=== PATIENT | female | born 1945 | race Caucasian/White ===

== ENCOUNTER → 2018-02-25 10:18 | Outpatient (CLI) | payer MEDICARE, OTHER, SELFPAY ==
--- NOTE | 2018-02-25 10:21 | BI_ITS ---
MAMMOGRAPHY - BILATERAL SCREENING REASON FOR EXAM: Female, 72 years old. Routine annual screening examination. PERTINENT HISTORY: NO FAM HX GAINED 10# NO SX TECHNIQUE: Digital bilateral breast juan david (3D mammographic acquisition) in the CC and MLO projections. 2-D mediolateral oblique (MLO) and craniocaudad (CC) views of both breasts were obtained. CAD: Full Field Digital Mammography with Computer Added Detection was performed. COMPARISON: Dec 17 2016 8:49am . FINDINGS: Breast Composition: There are scattered areas of fibroglandular density. There are no dominant masses or suspicious calcifications. No other significant abnormalities are identified. BI/SCREENING MAMM (CAD), BILAT IMPRESSION: Stable bilateral screening mammogram. Yearly follow-up mammogram recommended. (A) ASSESSMENT CATEGORY: BIRADS Category 2: Benign. A letter regarding these results will be sent to the patient by the facility within 30 days. Approximately 10% of breast cancers are not detected by mammography. A normal mammogram should not delay biopsy of a clinically suspicious abnormality. [id number] Electronically Signed: Eliezer Whiting MD at 16:48 EDT Tel , Service support ,
== END ==
PROVIDERS: Family Provider Family Medicine; PCP Family Medicine; Visit Provider Family Medicine
DX: Z12.31 Encounter for screening mammogram for malignant neoplasm of breast (principal)
CPT/HCPCS: 77063; 77067

== ENCOUNTER → 2018-06-30 07:07 | Outpatient (CLI) | payer MEDICARE, OTHER, SELFPAY ==
[2018-06-30 10:01] LABS: Color, Urine Yellow (Yellow); Glucose, Dipstick Normal (Normal); Ketone-Dipstick Negative (Negative); Leukocyte Esterase-Dipstick Negative /ul (Negative); Nitrite-Dipstick Negative (Negative); Occult Blood-Urine Negative /ul (Negative); Protein-Dipstick Negative (Negative); Urine Bilirubin Dipstick Negative (Negative); Urine Clarity Sl. Cloudy (Clear); Urine Urobilinogen Normal (Normal)
[2018-06-30 10:13] LABS: Anion Gap 9 (5-15); BUN 18 mg/dL (7-18); BUN/Creat Ratio 26.2 RATIO (10-20); Calcium,Total 9.4 mg/dL (8.5-10.1); Chloride 105 mmol/L (98-107); Creatinine, Serum 0.69 mg/dL (0.55-1.02); EST Glomerular Filtration Rate 89 mL/min (>60); Est Glom Filt Rate - Afr Amer 108 mL/min (>60); Glucose 89 mg/dL (74-106); Potassium 4.1 mmol/L (3.5-5.1); Sodium Level 141 mmol/L (136-145)
== END ==
PROVIDERS: Family Provider Family Medicine; PCP Family Medicine; Visit Provider Internal Medicine Endocrinology, Diabetes & Metabolism
DX: N28.89 Other specified disorders of kidney and ureter (principal); R30.0 Dysuria; R39.15 Urgency of urination
CPT/HCPCS: 36415; 80048; 81002

== ENCOUNTER → 2018-07-14 16:15 | Outpatient (CLI) | payer MEDICARE, OTHER, SELFPAY ==
--- NOTE | 2018-07-14 16:15 | LES_PTH ---
PATIENT: MAURI ARIAS LOC: [facility] U#:[id number] AGE/SX: 80/F ROOM: RE07/14/[address]: Dr. 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 Perineural invasion is not seen. HIPOLITO:jenny 07/17/18 COMMENT Case has been reviewed in consultation with Dr. Schneider who concurs with the above diagnosis. IDC:AM MICROSCOPIC DESCRIPTION Slides are reviewed. GROSS DESCRIPTION Received is one container labeled with the patient's name and not further designated. The specimen consists of a piece of santillan-white skin measuring 1.2 x 0.5 x 0.2 cm. The specimen is inked and submitted entirely in one cassette. A round nodule is noted measuring 0.5 cm in greatest dimension. The specimen is submitted entirely in one cassette. It will be sectioned at the time of embedding. / SJ:jenny 07/16/18 TC:0 CPT: 25649
== END ==
PROVIDERS: Family Provider Family Medicine; PCP Family Medicine; Visit Provider Family Medicine
DX: C44.622 Squamous cell carcinoma of skin of right upper limb, including shoulder (principal)
CPT/HCPCS: 88305

== ENCOUNTER → 2018-08-05 14:15 | Outpatient (CLI) | payer MEDICARE, OTHER, SELFPAY ==
--- NOTE | 2018-08-05 14:15 | LES_PTH ---
PATIENT: MAURI ARIAS LOC: [facility] U#:[id number] AGE/SX: 80/F ROOM: RE08/05/[address]: Dr. Jcarlos Zayas MD : 1945 BED: DIS: SPEC #: [id number] RECD: 08/05/18 20:08 STATUS: VANESSA ENEDELIA #: [id number] EFREN: 08/05/18 14:[address]: Jcarlos Zayas DEPT: SURGICAL PATHOLOGY RECD BY: Trey Degroot Tissues: Skin of arm Procedures: Surgery Specimen Level IV HEADER OPERATION: Excision right arm PRE-OP DIAGNOSIS: SCC TISSUE SUBMITTED: Excision right arm MICROSCOPIC DIAGNOSIS Right arm lesion, excision: Dermal fibrosis, consistent with scar. Negative for carcinoma. Mild actinic keratosis. See comment. HIPOLITO:jenny 08/07/18 COMMENT Please make reference to previous specimen ([id number]) right arm lesion, excision with diagnosis of superficially invasive well differentiated squamous cell carcinoma, keratoacanthomatous type. MICROSCOPIC DESCRIPTION Slides are reviewed. GROSS DESCRIPTION Received in fixative is one container labeled with the patient's name and designated right arm. The specimen consists of a sony-shaped piece of santillan-white skin measuring 2.5 x 1.5 cm and up to 0.2 cm in thickness. The specimen is inked, serially sectioned and submitted entirely in two cassettes. / SJ:jenny 08/06/18 TC:5 CPT: 92021
== END ==
PROVIDERS: Family Provider Family Medicine; PCP Family Medicine; Referring Provider Family Medicine; Visit Provider Family Medicine
DX: L98.9 Disorder of the skin and subcutaneous tissue, unspecified (principal)
CPT/HCPCS: 88305

== ENCOUNTER → 2019-02-03 14:47 | Outpatient (CLI) | payer MEDICARE, OTHER, SELFPAY ==
--- NOTE | 2019-02-03 14:52 | ECHOD_ITS ---
Reason For Study: Murmur Procedure This was a 2D Doppler, Color Flow transthoracic echocardiogram. Exam performed in department. Left Ventricle Normal size and thickness. The estimated ejection fraction is 65 %. Stage 1 diastolic dysfunction. No regional wall motion abnormalities noted. Right Ventricle Normal size and thickness. Normal systolic function. Atria Normal left atrium. Normal right atrium. Normal atrial septum. Mitral Valve The mitral valve is structurally normal. No prolapse or stenosis seen. Tricuspid Valve Normal tricuspid valve. Trivial tricuspid valve insufficiency. Unable to estimate RV systolic pressure/pulmonary artery pressure due to technically difficult study. Aortic Valve Trisinus/trileaflet aortic valve. Pulmonic Valve Normal pulmonic valve. Great Vessels Normal aortic root. Normal arch. Normal inferior vena cava. Inferior vena cava collapse with sniff. Pericardium/Pleural No pericardial effusion. MMode/2D Measurements & Calculations LVIDd: 4.6 cm IVSd: 1.1 cm Ao root diam: 3.2 cm LVIDs: 2.8 cm LVPWd: 0.96 cm LA dimension: 3.8 cm RVDd: 3.2 cm FS: 39.5 % LAV(MOD-bp): 40.8 ml LA A4 area: 15.6 cm2 RA A4 area: 15.1 cm2 LAV(MOD-bp) Indexed: 20.2 ml/m2 LAV(MOD-sp2): 40.1 ml LAV(MOD-sp4): 38.0 ml Time Measurements MV dec time: 0.22 sec Doppler Measurements & Calculations MV E max fred: 71.2 cm/sec Lat Peak E' Fred: 7.1 cm/sec Med Peak E' Fred: 8.0 cm/sec MV A max fred: 98.7 cm/sec E/E' lat: 10.1 E/E' med: 8.9 MV E/A: 0.72 MV V2 max: 110.7 cm/sec MV P1/2t max fred: 96.3 cm/sec Ao V2 max: 156.0 cm/sec MV max P.9 mmHg MV P1/2t: 85.1 msec Ao max P.7 mmHg MV V2 mean: 64.1 cm/sec MV dec slope: 331.5 cm/sec2 Ao V2 mean: 109.3 cm/sec MV mean P.9 mmHg MVA(P1/2t): 2.6 cm2 Ao mean P.4 mmHg MV V2 VTI: 26.3 cm Ao V2 VTI: 36.4 cm LV V1 max: 137.8 cm/sec PA V2 max: 116.5 cm/sec LV V1 max P.6 mmHg LV V1 mean P.4 mmHg LV V1 mean: 84.1 cm/sec LV V1 VTI: 30.1 cm Interpretation Summary The estimated ejection fraction is 65 %. Stage 1 diastolic dysfunction. Trivial tricuspid valve insufficiency. Unable to estimate RV systolic pressure/pulmonary artery pressure due to technically difficult study. Compared to echo report dated 09/09/2005, no appreciable changes noted. Ordering Physician: Mauricio Leonard Referring Physician: Mauricio Leonard Performed By: Arsenio Bustillo RCS
== END ==
PROVIDERS: Family Provider Family Medicine; PCP Family Medicine; Referring Provider Family Medicine; Visit Provider Family Medicine
DX: R01.1 Cardiac murmur, unspecified (principal)
CPT/HCPCS: 93306

== ENCOUNTER → 2019-04-07 09:24 | Outpatient (CLI) | payer MEDICARE, OTHER, SELFPAY ==
--- NOTE | 2019-04-07 09:28 | BI_ITS ---
MAMMOGRAPHY - BILATERAL SCREENING REASON FOR EXAM: Female, 73 years old. Routine annual screening examination. PERTINENT HISTORY: Non-contributory. TECHNIQUE: Digital bilateral breast mark (3D mammographic acquisition) in the CC and MLO projections. 2-D mediolateral oblique (MLO) and craniocaudad (CC) views of both breasts were obtained. CAD: Full Field Digital Mammography with Computer Added Detection was performed. COMPARISON: Comparison is made with prior study dated February 25, 2018 and December 17, 2016. FINDINGS: Breast Composition: There are scattered areas of fibroglandular density. There are no dominant masses or suspicious calcifications. Stable small left axillary lymph nodes. No other significant abnormalities are identified. There has been no significant change since the prior study. BI/SCREEN MAMM (CAD) W/MARK BILAT IMPRESSION: Stable bilateral screening mammogram. Yearly follow-up mammogram recommended. (A) ASSESSMENT CATEGORY: BIRADS Category 2: Benign. A letter regarding these results will be sent to the patient by the facility within 30 days. Approximately 10% of breast cancers are not detected by mammography. A normal mammogram should not delay biopsy of a clinically suspicious abnormality. [id number] Electronically Signed: Easton Mccrary, at 11:04 EDT , Service support ,
== END ==
PROVIDERS: Family Provider Family Medicine; PCP Family Medicine; Referring Provider Family Medicine; Visit Provider Family Medicine
DX: Z12.31 Encounter for screening mammogram for malignant neoplasm of breast (principal); Z78.0 Asymptomatic menopausal state
CPT/HCPCS: 77063; 77067

== ENCOUNTER → 2019-04-14 07:28 | Outpatient (CLI) | payer MEDICARE, OTHER, SELFPAY ==
--- NOTE | 2019-04-14 07:55 | BD_ITS ---
STUDY: DUAL ENERGY X-RAY ABSORPTIOMETRY / DXA REASON FOR EXAM: Female, 73 years old. The patient is postmenopausal. No loss of height. TECHNIQUE: Bone Mineral Density (BMD) measurements of lumbar spine and bilateral hips were obtained. COMPARISON: Comparison is made with prior study dated December 17, 2016. FINDINGS: Lumbar Spine (L1-L4): g/cm2 (0.906) / T-score (-2.2) / Z-score (-0.5) Findings are suggestive of osteopenia with a moderate fracture risk. Left Femur Total: g/cm2 (0.787) / T-score (-1.8) / Z-score (-0.2) Left Femoral Neck: g/cm2 (0.791) / T-score (-1.8) / Z-score (0.0) Right Femur Total: g/cm2 (0.757) / T-score (-2.0) / Z-score (-0.4) Right Femoral Neck: g/cm2 (0.799) / T-score (-1.7) / Z-score (0.0) The T-Scores on the most recent prior examination were: Lumbar Spine (L1-L4): There has been worsening of bone density since the previous examination. Left Femur Total: which represents an improvement of 0.4%. Right Femur Total: which represents a worsening of 0.9%. BD/Dexa Bone Density Study IMPRESSION: The patient is considered osteopenic as outlined below according to World Alli Organization (WHO) criteria with a high fracture risk. There has been worsening of bone density since the previous examination. Reference Information: The T-score is the number of standard deviations above or below the standard which is normal for young adults at their peak bone mineral density. The World Health Organization (WHO) interprets the T-scores as follows: Above -1 Normal bone density Between -1 and -2.5 Osteopenia Equal to / or below -2.5 Osteoporosis As a practical clinical guideline, osteopenia may be graded as follows: Mild -1 through -1.5 Moderate -1.6 through -2.0 Severe -2.1 through -2.4 The Z-score is the number of standard deviations above or below age-matched controls. A Z-score of less than -1.5 would be considered abnormal. References: 1. NIH Osteoporosis and Related Bone Diseases http://www.osteo.org 2. International Society for Clinical Densitometry http://www.iscd.org 3. National Osteoporosis Foundation http://www.nof.org Electronically Signed: Easton Mccrary, at 15:32 EDT , Service support ,
== END ==
PROVIDERS: Family Provider Family Medicine; PCP Family Medicine; Referring Provider Family Medicine; Visit Provider Family Medicine
DX: M85.80 Other specified disorders of bone density and structure, unspecified site (principal); Z78.0 Asymptomatic menopausal state
CPT/HCPCS: 77080

== ENCOUNTER → 2019-05-20 06:59 | Outpatient (CLI) | payer MEDICARE, OTHER, SELFPAY ==
[2019-05-20 10:34] LABS: Vitamin D,25 Hydroxy 46.9 ng/mL (29.95-100.01)
[2019-05-20 10:39] LABS: Anion Gap 8 (5-15); BUN 15 mg/dL (7-18); BUN/Creat Ratio 25.8 RATIO (10-20); Calcium,Total 9.8 mg/dL (8.5-10.1); Chloride 106 mmol/L (98-107); Cholesterol 211 mg/dL (200); Creatinine, Serum 0.58 mg/dL (0.55-1.02); EST Glomerular Filtration Rate 108 mL/min (>60); Est Glom Filt Rate - Afr Amer 131 mL/min (>60); Glucose 100 mg/dL (74-106); High Density Lipoprotein 57 mg/dL; Potassium 4.3 mmol/L (3.5-5.1); Sodium Level 141 mmol/L (136-145); Thyroid Stim Hormone (TSH) 1.62 uIU/mL (0.358-3.74); Triglycerides 73 mg/dL; Very Low Density Lipoprotein 15 mg/dL (5-40)
== END ==
PROVIDERS: Family Provider Family Medicine; PCP Family Medicine; Referring Provider Family Medicine; Visit Provider Family Medicine
DX: D44.10 Neoplasm of uncertain behavior of unspecified adrenal gland (principal); E78.5 Hyperlipidemia, unspecified; M85.80 Other specified disorders of bone density and structure, unspecified site
CPT/HCPCS: 36415; 80048; 80061; 82306; 82533; 84443

== ENCOUNTER → 2019-05-27 07:00 | Outpatient (CLI) | payer MEDICARE, OTHER, SELFPAY | PROVIDERS: Family Provider Family Medicine; PCP Family Medicine; Referring Provider Internal Medicine Endocrinology, Diabetes & Metabolism; Visit Provider Internal Medicine Endocrinology, Diabetes & Metabolism | DX: D44.10 Neoplasm of uncertain behavior of unspecified adrenal gland (principal) ==

== ENCOUNTER → 2019-06-16 07:33 | Outpatient (CLI) | payer MEDICARE, OTHER, SELFPAY | PROVIDERS: Family Provider Family Medicine; PCP Family Medicine; Referring Provider Internal Medicine Endocrinology, Diabetes & Metabolism; Visit Provider Internal Medicine Endocrinology, Diabetes & Metabolism | DX: E89.0 Postprocedural hypothyroidism (principal) ==

== ENCOUNTER 2019-07-02 12:13 | Emergency (ER) | payer MEDICARE, OTHER, SELFPAY ==
[2019-07-02 12:14] VITALS: BP 146/77; PULSE 71; RESP 16; TEMP 36.7; O2SAT 99; BMI 29.7
[2019-07-02] MEDS: 0.9% Normal Saline 1,000 ML 125 ML IV (13:00)
[2019-07-02 13:07] LABS: Absolute Lymphocyte Count 1.72 X10^3/uL (0.83-4.51); Absolute Neutrophil Count 3.2 X10^3/uL (2.0-7.7); Basophil# 0.05 X10^3/uL; Basophil% 0.9 % (0-1); Eosinophil# 0.14 X10^3/uL; Eosinophils% 2.4 % (0-5); Hematocrit 41.7 % (37-47); Lymphocyte # 1.72 X10^3/ul (4.0); Lymphocyte % 29.6 % (19-41); Mean Corp Hgb Conc 33.6 g/dL (32-36); Mean Corpuscular Hgb 30.8 pg (27.0-32.0); Mean Corpuscular Volume 91.6 fL (81-99); Mean Platelet Vol. 10.9 fl (6.2-12.0); Monocyte# 0.73 X10^3/uL; Monocyte% 12.6 % (0-10); NRBC Flagged by Analyzer 0 % (0-5); Neutrophil # 3.15 X10^3/uL (2.7-7.7); Neutrophil % 54.2 % (47-70); Platelet Count 294 K/mm3 (150-450); RBC Distribution Width CV 12.8 % (11.6-14.6); RBC Distribution Width SD 43.4 fl (35.1-43.9); Red Blood Count 4.55 M/mm3 (4.2-5.4); White Blood Count 5.8 K/mm3 (4.4-11.0)
[2019-07-02 13:29] LABS: Anion Gap 4 (5-15); BUN 14 mg/dL (7-18); BUN/Creat Ratio 23.7 RATIO (10-20); Calcium,Total 9.5 mg/dL (8.5-10.1); Chloride 108 mmol/L (98-107); Creatinine, Serum 0.59 mg/dL (0.55-1.02); EST Glomerular Filtration Rate 106 mL/min (>60); Est Glom Filt Rate - Afr Amer 129 mL/min (>60); Glucose 94 mg/dL (74-106); Potassium 3.6 mmol/L (3.5-5.1); Sodium Level 141 mmol/L (136-145)
[2019-07-02 14:21] VITALS: BP 143/63; BP 145/68; BP 152/76; PULSE 58; PULSE 60; PULSE 62
--- NOTE | 2019-07-02 14:36 | ED.VISSUMM ---
- ER Visit Summary Date of Service: 07/02/19 Chief Complaint: [Rectal bleeding] History of Present Illness: The patient is a 74 F [presents to the emergency department with rectal bleeding that started this morning around 6:30 AM. Patient complains of some mild nausea. She denies any abdominal pain. Patient is not on any blood thinners. Patient thinks her last colonoscopy was 5 to 7 years ago. Patient denies feeling dizzy or lightheaded. Patient was seen by Dr. Vora in the office today for this and was referred to the emergency department. Patient does not have history of diverticulitis or inflammatory bowel disease. She has not had any fevers or recent illness.] Physical Examination: [HEENT-PERRLA, EOMI. Cranial nerves II through XII grossly intact. TMs clear. Mucous membranes moist. No adenopathy. Cardiovascular-regular rate and rhythm without murmur or ectopy Lungs-clear to auscultation, chest wall stable without crepitus or subcu emphysema Abdomen-normoactive bowel sounds, soft, nontender, no rebound or rigidity, no peritoneal signs. Rectal exam-no hemorrhoids or fissures noted. On digital rectal exam patient had bright red and maroon-colored stool. Extremities-intact ?4, normal range of motion, normal pulses, atraumatic] Test Results: [CBC with differential obtained showed a white count of 5.8, hemoglobin 14, hematocrit 42, placed 294. Chemistries unremarkable. With static vital signs were negative.] Emergency Department Course and Treatment: [Patient had a type and screen ordered. Patient was treated with normal saline. Case was discussed with general surgeon on-call Dr. Ashlyn Santiago who will follow patient up in the office for possible outpatient colonoscopy. At this point I do not feel patient needs to be admitted to the hospital as she is had no more bleeding since 6:30 AM and she is not anticoagulated.] Treatment Plan: [Discharged home stable condition. Patient advised to return if worsening pain, fever, persistent heavy bleeding, lightheaded or dizzy, short of breath, or conditions worsen anyway.] Disposition: [Discharged home stable condition] Impression: Rectal bleeding-stable [] This note was generated with [employer] dictation software. It may contain incorrect words, spelling, and punctuation that were not noted in review of the chart prior to signing ED Disposition - Plan for ED Patient: Referrals: Demetrius Zayas MD [Primary Care Provider] -
--- NOTE | 2019-07-02 14:38 | DCINST.ED_ITS ---
ED Disposition - Plan for ED Patient: Instructions: RECTAL BLEED, Stable Referrals: Demetrius Zayas MD [Primary Care Provider] - Ashlyn Santiago MD [STAFF PHYSICIAN] - 3-5 Days
--- NOTE | 2019-07-02 14:38 | ED.DEP ---
ED Disposition - Plan for ED Patient: Instructions: RECTAL BLEED, Stable Referrals: Demetrius aZyas MD [Primary Care Provider] - Ashlyn Santiago MD [STAFF PHYSICIAN] - 3-5 Days
[2019-07-02 15:13] VITALS: BP 138/72; PULSE 69; RESP 15; O2SAT 98
== END 2019-07-02 15:15 | disposition home or self-care (01) ==
PROVIDERS: Emergency Provider Emergency Medicine; Family Provider Family Medicine; PCP Family Medicine
DX: K62.5 Hemorrhage of anus and rectum (principal)
CPT/HCPCS: 80048; 85025; 86850; 86900; 86901; 96360; 96361; 99284; J7030; A4216

== ENCOUNTER → 2019-07-09 07:05 | Outpatient (CLI) | payer MEDICARE, OTHER, SELFPAY ==
[2019-07-02 12:14] VITALS: BMI 29.7
== END ==
PROVIDERS: Family Provider Family Medicine; PCP Family Medicine; Referring Provider Internal Medicine Endocrinology, Diabetes & Metabolism; Visit Provider Internal Medicine Endocrinology, Diabetes & Metabolism
DX: D44.10 Neoplasm of uncertain behavior of unspecified adrenal gland (principal)

== ENCOUNTER → 2019-12-13 11:27 | Outpatient (CLI) | payer MEDICARE, OTHER, SELFPAY ==
--- NOTE | 2019-12-13 11:33 | RAD_ITS ---
STUDY: X-RAY - RIGHT SHOULDER REASON FOR EXAM: Female, 74 years old. right shoulder pain, no injury TECHNIQUE: 4 view(s) of the shoulder. COMPARISON: None. FINDINGS: Normal glenohumeral articulation. There is degenerative arthrosis of the acromioclavicular joint without inferior osseous spur formation. Normal acromion. Normal humeral head and visualized proximal humerus. The soft tissue structures are unremarkable. Normal visualized pulmonary apex. RAD/Shoulder min 2 Views IMPRESSION: Mild degenerative changes. No demonstrated fracture, dislocation, or destructive osseous lesion. Electronically Signed: Boston Longoria MD at 6:57 EST , Service support ,
== END ==
PROVIDERS: PCP Family Medicine; Referring Provider Family Medicine; Visit Provider Family Medicine
DX: M25.511 Pain in right shoulder (principal)
CPT/HCPCS: 73030

== ENCOUNTER → 2020-05-22 11:07 | Outpatient (CLI) | payer MEDICARE, OTHER, SELFPAY ==
[2020-05-21 09:05] VITALS: BMI 29.7
== END ==
PROVIDERS: PCP Family Medicine; Referring Provider Physician Assistant Medical; Visit Provider Physician Assistant Medical
DX: Z20.828 Contact with and (suspected) exposure to other viral communicable diseases (principal)
CPT/HCPCS: 87635; 94799; U0003

== ENCOUNTER → 2020-08-23 14:27 | Outpatient (CLI) | payer MEDICARE, OTHER, SELFPAY ==
[2020-05-21 09:05] VITALS: BMI 29.7
--- NOTE | 2020-08-23 14:35 | RAD_ITS ---
HISTORY: cervical radiculopathy ADDITIONAL HISTORY: None provided. EXAMINATION/TECHNIQUE: XR Spine Cervical 4 or 5 Views Number of images including paperwork: 5 COMPARISON: None FINDINGS: VERTEBRAE: No acute fracture. VERTEBRAL ALIGNMENT: No traumatic subluxation. DISKS AND JOINTS: Mild to moderate discogenic degenerative changes at C5-6. Facet arthropathy. Mild to moderate bilateral foraminal stenosis at C5-6, foraminal evaluation on the left limited due to obliquity.. SOFT TISSUES: Unremarkable paraspinous soft tissues. RAD/Cerv Spine 4 or 5 Views IMPRESSION: No acute findings. Cervical spondylosis. at 0815 Reported and signed by: Sujata Melendez MD Electronically Signed: Sujata Melendez MD at 8:15 EDT Tel , Service support ,
== END ==
PROVIDERS: PCP Family Medicine; Referring Provider Family Medicine; Visit Provider Family Medicine
DX: M54.12 Radiculopathy, cervical region (principal)
CPT/HCPCS: 72050

== ENCOUNTER → 2020-09-12 07:04 | Outpatient (CLI) | payer MEDICARE, OTHER, SELFPAY ==
[2020-05-21 09:05] VITALS: BMI 29.7
[2020-09-12 10:06] LABS: Vitamin D,25 Hydroxy 38.3 ng/mL
[2020-09-12 10:07] LABS: Anion Gap 4 (5-15); BUN 13 mg/dL (7-18); BUN/Creat Ratio 21.4 RATIO (10-20); Calcium,Total 9.5 mg/dL (8.5-10.1); Chloride 105 mmol/L (98-107); Cholesterol 250 mg/dL (200); Creatinine, Serum 0.61 mg/dL (0.55-1.02); EST Glomerular Filtration Rate 103 mL/min (>60); Est Glom Filt Rate - Afr Amer 124 mL/min (>60); Glucose 87 mg/dL (74-106); High Density Lipoprotein 70 mg/dL; Potassium 3.9 mmol/L (3.5-5.1); Sodium Level 138 mmol/L (136-145); Triglycerides 81 mg/dL; Very Low Density Lipoprotein 16 mg/dL (5-40)
== END ==
PROVIDERS: PCP Family Medicine; Referring Provider Family Medicine; Visit Provider Family Medicine
DX: E78.5 Hyperlipidemia, unspecified (principal); M85.80 Other specified disorders of bone density and structure, unspecified site
CPT/HCPCS: 36415; 80048; 80061; 82306

== ENCOUNTER 2020-09-27 13:30 | Outpatient (RCR) | payer MEDICARE, OTHER, SELFPAY ==
[2020-05-21 09:05] VITALS: BMI 29.7
--- NOTE | 2020-08-30 17:24 | HP.PTEVAL_ITS ---
Patient's Visit Information MAURI ARIAS is a 75 year old F referred to Physical Therapy by Dr. Demetrius Zayas MD with a diagnosis of Cervical DDD. Date of Evaluation: 08/30/20 Physical Therapist: Ann Villalobos DPT - Visit Plan Frequency: 2x /Week Duration: 4 Weeks Plan: Focus on scapular s/s- ultrasound as modality of choice - Subjective Patient reports that she has pain in the right shoulder-she had an x-ray of the neck. The pain started in Nov- insidous onset- was told it was OA in the shoulder- but when she went back it was radiating to the elbow and they told her it was coming from her neck. Pain is located in the shoulder and radiates to the elbow. No neck pain. Describes the pain as nagging. Eases: tiger balm Agg: writting, lifting Worst: 8/10 Best: 0/10. Sleep: disturbed-side sleeper- wakes her up- takes Aleve before she goes to bed. Notices N/T in her hand but it comes and goes. Decreased strength but no change in finger dexterity. No GUAJARDO, blurred vision or dizziness. No symptoms on the left side. X-rays of the cervical spine but no MRI. 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 Single day of a lot of [employer]- works 40+ hours a week. Sits a lot. PMHx: none Meds: none. Was given a medication but it makes her mouth dry. Right hand dominate. - Objective Posture: FH, RS- can correct but does not maintain without verbal prompting. Gait: no deviation noted- good arm swing and trunk rotation. Palpatoin: not tender to touch but does have trigger points throughout upper trap, levator insertion, and medial border of the scapula. ROM: WFL in all planes but reports pain with IR of the shoulder behind the back and stiffness with end range flexion and abduction. Strength: Cervical Isometric: 4+/5, Scap: fair minus, Shoulder: 4/5 throughout, Elbow: 4+/5 Wrist: 5/5 Belt Operator: equal. Special Test: impingment: positive, Empty can: negative, Spurlings: negative Distraction: negative - Goals Goal 1:: Patient will be I with HEP and progression Goal Time Frame: 4-6 Weeks Goal 2:: Patient will maintain proper posture t/o tx session to demo increased scap s/s Goal Time Frame: 4-6 Weeks Goal 3:: Patient will report sleeping through the night for 1 week Goal Time Frame: 4-6 Weeks - Rehabilitation Potential Physical Therapy Diagnosis: Patient presents with hypomobility-she has decreased painfree ROM, strength and muscular endurance leading to poor posture and increased pain with ADL's. Rehabilitation Potential: Good - Anticipated Interventions Patient/Client Instruction: Educate patient on: Benefits of Fitness Program Therapeutic Exercise to Include: Strength training, Endurance training, Body mechanics, Postural training, Neuromotor development, Passive ROM, Active ROM, Dynamic Lumbar Stabilization, Scapular Strength/Stabilization For the Purpose of:: To improve muscle performance and motor function TENS: Yes Cryotherapy (ice pack, ice massage): Yes Thermo therapy (hot pack): Yes Ultrasound (thermal/non thermal): Yes Thank you for the opportunity to evaluate your patient. For Medicare and Medicare HMO plans, please review the plan of care and approve it. It will need to be FAXED BACK to us at [phone] for Medicare purposes. For Medicare only, by signing this I certify the plan of care. Please let me know if there are questions or concerns regarding this plan of care. Physician Signature: Date:
--- NOTE | 2020-09-27 14:06 | HP.PTDCSUM ---
It has been my pleasure to treat MAURI ARIAS referred by Dr. Demetrius Zayas MD, with the diagnosis of Cervical DDD for a total of 8 visit(s). Discharge Date: Please see the following information for a summary of their discharge status. Subjective: Patient reports that she doesn't feel like she is making huge gains in PT and was awake last night with pain down her arm. right arm/shoduler Pain Intensity (Out of 10): 2 % Improvement: 50 Objective/Function: Posture: FH, RS- can correct and maintain without verbal prompting. Gait: no deviation noted- good arm swing and trunk rotation. Palpatoin: not tender. ROM: WFL in all planes Strength: Cervical Isometric: 4+/5, Scap: fair, Shoulder: 4+/5 throughout, Elbow: 5/5 Wrist: 5/5 Visually Impaired Teacher: equal. Special Test: impingment: positive, Empty can: negative, Spurlings: negative Distraction: negative Goal 1:: Patient will be I with HEP and progression Goal Progress: Progressing Goal 2:: Patient will maintain proper posture t/o tx session to demo increased scap s/s Goal Progress: Progressing Goal 3:: Patient will report sleeping through the night for 1 week Goal Progress: Not Progressing Plan: Return to MD for further evaluation If there are questions or concerns regarding this patient's physical therapy, please feel free to call me at [phone]. Thank you for the referral of this patient. Sincerely, Ann Villalobos DPT
== END 2020-09-27 19:00 | disposition home or self-care (01) ==
LOC: PT 13:30
PROVIDERS: PCP Family Medicine; Referring Provider Family Medicine; Visit Provider Family Medicine
DX: M50.30 Other cervical disc degeneration, unspecified cervical region (principal)
CPT/HCPCS: 97035; 97110; 97140; 97162; 97164

== ENCOUNTER → 2020-10-18 13:12 | Outpatient (CLI) | payer MEDICARE, OTHER, SELFPAY ==
[2020-05-21 09:05] VITALS: BMI 29.7
--- NOTE | 2020-10-18 13:14 | BI_ITS ---
MAMMOGRAPHY - BILATERAL SCREENING REASON FOR EXAM: Female, 75 years old. Routine annual screening examination. PERTINENT HISTORY: Non-contributory. TECHNIQUE: Digital bilateral breast mark (3D mammographic acquisition) in the CC and MLO projections. 2-D mediolateral oblique (MLO) and craniocaudad (CC) views of both breasts were obtained. CAD: Full Field Digital Mammography with Computer Added Detection was performed. COMPARISON: Comparison is made with prior study dated 04/07/2019 and 02/25/2018. FINDINGS: Breast Composition: There are scattered areas of fibroglandular density. There are no dominant masses or suspicious calcifications. No other significant abnormalities are identified. There has been no significant change since the prior study. BI/SCREEN MAMM (CAD) W/MARK BILAT IMPRESSION: Stable bilateral screening mammogram. Yearly follow-up mammogram recommended. (A) ASSESSMENT CATEGORY: BIRADS Category 1: Negative. A letter regarding these results will be sent to the patient by the facility within 30 days. Approximately 10% of breast cancers are not detected by mammography. A normal mammogram should not delay biopsy of a clinically suspicious abnormality. [id number] Electronically Signed: Easton Mccrary, at 14:34 EST , Service support ,
== END ==
PROVIDERS: PCP Family Medicine; Referring Provider Family Medicine; Visit Provider Family Medicine
DX: Z12.31 Encounter for screening mammogram for malignant neoplasm of breast (principal)
CPT/HCPCS: 77063; 77067

== ENCOUNTER → 2020-10-19 12:26 | Outpatient (CLI) | payer MEDICARE, OTHER, SELFPAY ==
[2020-05-21 09:05] VITALS: BMI 29.7
--- NOTE | 2020-10-19 13:00 | MRI_ITS ---
STUDY: MRI CERVICAL SPINE WITHOUT CONTRAST REASON FOR EXAM: Female, 75 years old. DDD, R ARM PAIN TECHNIQUE: Standardized fat and water weighted pulse sequences were obtained in the sagittal and axial planes. COMPARISON: None FINDINGS: Normal foramen magnum and brainstem-cervical cord junction. Normal craniovertebral junction. Normal anterior atlantoaxial articulation. Normal odontoid process. Normal cervical lordosis. Normal vertebral bodies and posterior osseous elements. C2-3: Normal endplates. Normal disc height, signal and morphology. Normal central canal and intervertebral neural foramina. C3-4: Normal endplates. Normal disc height, signal and morphology. Normal central canal and intervertebral neural foramina. C4-5: Normal endplates. Normal disc height, signal and morphology. Normal central canal and intervertebral neural foramina. C5-6: Narrowed disc space and minor endplate spurring. Minor bulging disc osteophyte complex. Normal central canal.. Severe right neuroforaminal stenosis and moderate narrowing on the left secondary to disc and bony hypertrophy C6-7: Normal endplates. Normal disc height, signal and morphology. Normal central canal and intervertebral neural foramina. C7-T1: Normal endplates. Normal disc height, signal and morphology. Normal central canal and intervertebral neural foramina. Normal cervical cord. Normal visualized soft tissue structures. MRI/Spine Cervical (Routine) IMPRESSION: No evidence for acute fracture or other significant bony pathology. Mild spondylosis most severe at C5-6 where there is severe right neuroforaminal stenosis and moderate narrowing on the left secondary to minor bulging disc and bony hypertrophy Electronically Signed: Viraj Marti MD at 17:40 EST , Service support ,
== END ==
PROVIDERS: PCP Family Medicine; Referring Provider Family Medicine; Visit Provider Family Medicine
DX: M50.30 Other cervical disc degeneration, unspecified cervical region (principal)
CPT/HCPCS: 72141

== ENCOUNTER → 2021-05-14 07:55 | Outpatient (CLI) | payer MEDICARE, OTHER, SELFPAY ==
[2020-05-21 09:05] VITALS: BMI 29.7
== END ==
PROVIDERS: PCP Family Medicine; Referring Provider Internal Medicine Endocrinology, Diabetes & Metabolism; Visit Provider Internal Medicine Endocrinology, Diabetes & Metabolism
DX: D44.10 Neoplasm of uncertain behavior of unspecified adrenal gland (principal)
CPT/HCPCS: 36415; 82533

== ENCOUNTER → 2021-05-28 07:46 | Outpatient (CLI) | payer MEDICARE, OTHER, SELFPAY ==
[2020-05-21 09:05] VITALS: BMI 29.7
== END ==
PROVIDERS: PCP Family Medicine; Referring Provider Internal Medicine Endocrinology, Diabetes & Metabolism; Visit Provider Internal Medicine Endocrinology, Diabetes & Metabolism
DX: D44.10 Neoplasm of uncertain behavior of unspecified adrenal gland (principal)
CPT/HCPCS: 36415; 82533

== ENCOUNTER → 2021-10-17 07:06 | Outpatient (CLI) | payer MEDICARE, OTHER, SELFPAY ==
[2021-10-17 10:23] LABS: Vitamin D,25 Hydroxy 35.4 ng/mL
[2021-10-17 10:37] LABS: AST(SGOT) 14 U/L (15-37); Alanine Aminotransfer ALT/SGPT 26 U/L (13-56); Albumin, Serum 3.4 g/dL (3.2-5.0); Alkaline Phosphatase 67 U/L (45-117); Anion Gap 8 (5-15); BUN 15 mg/dL (7-18); BUN/Creat Ratio 26.9 RATIO (10-20); Bilirubin, Direct 0.09 mg/dL (0.00-0.30); Calcium,Total 8.8 mg/dL (8.5-10.1); Chloride 105 mmol/L (98-107); Cholesterol 205 mg/dL (200); Creatinine, Serum 0.56 mg/dL (0.55-1.02); EST Glomerular Filtration Rate 113 mL/min (>60); Est Glom Filt Rate - Afr Amer 137 mL/min (>60); Globulin 3.6 g/dL (2.2-4.2); Glucose 91 mg/dL (74-106); High Density Lipoprotein 61 mg/dL; Potassium 3.9 mmol/L (3.5-5.1); Sodium Level 140 mmol/L (136-145); Thyroid Stim Hormone (TSH) 2.32 uIU/mL (0.358-3.74); Triglycerides 62 mg/dL; Very Low Density Lipoprotein 12 mg/dL (5-40)
== END ==
PROVIDERS: PCP Family Medicine; Referring Provider Family Medicine; Visit Provider Family Medicine
DX: M85.80 Other specified disorders of bone density and structure, unspecified site (principal); E78.5 Hyperlipidemia, unspecified
CPT/HCPCS: 36415; 80048; 80061; 80076; 82306; 84443

== ENCOUNTER 2021-10-25 11:23 | Outpatient (CLI) | payer MEDICARE, OTHER, SELFPAY ==
[2021-10-25 11:36] VITALS: BP 150/74; PULSE 70; RESP 16; TEMP 37; O2SAT 97; BMI 27.4
[2021-10-25] MEDS: 0.9% Saline Lock 10 ML Syringe IV (11:39)
[2021-10-25 12:19] VITALS: BP 155/66; PULSE 62; RESP 16; TEMP 36.8; O2SAT 100
[2021-10-25 13:04] VITALS: BP 152/71; PULSE 65; RESP 16; TEMP 36.8; O2SAT 100
== END 2021-10-25 13:17 | disposition home or self-care (01) ==
LOC: MS3OUT 11:23 → MS3 11:24
PROVIDERS: PCP Family Medicine; Referring Provider Nurse Practitioner Adult Health; Visit Provider Nurse Practitioner Adult Health
DX: Z23 Encounter for immunization (principal); U07.1 COVID-19
CPT/HCPCS: J7050; M0245; Q0245; A4216

== ENCOUNTER 2021-10-30 09:45 | Outpatient (CLI) | payer MEDICARE, OTHER, SELFPAY ==
--- NOTE | 2021-10-30 09:50 | BI_ITS ---
MAMMOGRAPHY - BILATERAL SCREENING REASON FOR EXAM: Female, 76 years old. Routine annual screening examination. PERTINENT HISTORY: Non-contributory. TECHNIQUE: Digital bilateral breast mark (3D mammographic acquisition) in the CC and MLO projections. 2-D mediolateral oblique (MLO) and craniocaudad (CC) views of both breasts were obtained. CAD: Full Field Digital Mammography with Computer Added Detection was performed. COMPARISON: Comparison is made with prior study dated 10/18/2020 and 04/07/2019. FINDINGS: Breast Composition: There are scattered areas of fibroglandular density. There are no dominant masses or suspicious calcifications. No other significant abnormalities are identified. There has been no significant change since the prior study. BI/SCRN MAMM (CAD)W/MARK BILAT IMPRESSION: Stable bilateral screening mammogram. Yearly follow-up mammogram recommended. (A) ASSESSMENT CATEGORY: BIRADS Category 1: Negative. A letter regarding these results will be sent to the patient by the facility within 30 days. Approximately 10% of breast cancers are not detected by mammography. A normal mammogram should not delay biopsy of a clinically suspicious abnormality. [id number] Electronically Signed: Easton Mccrary MD at 11:47 EST , Service support ,
--- NOTE | 2021-10-30 09:55 | BD_ITS ---
STUDY: DUAL ENERGY X-RAY ABSORPTIOMETRY / DXA REASON FOR EXAM: Female, 76 years old. Z780. The patient is postmenopausal. TECHNIQUE: Bone Mineral Density (BMD) measurements of lumbar spine and bilateral hips were obtained. COMPARISON: Comparison is made with prior examination dated 04/14/2019. FINDINGS: Lumbar Spine (L1-L4): g/cm2 (0.928) / T-score (-1.1) / Z-score (1.3) Findings are suggestive of osteopenia with a low fracture risk. Left Femur Total: g/cm2 (0.658) / T-score (-2.3) / Z-score (-0.6) Left Femoral Neck: g/cm2 (0.608) / T-score (-2.2) / Z-score (-0.1) Right Femur Total: g/cm2 (0.650) / T-score (-2.4) / Z-score (-0.7) Right Femoral Neck: g/cm2 (0.592) / T-score (-2.3) / Z-score (-0.3) The T-Scores on the most recent prior examination were: Lumbar Spine (L1-L4): There has been worsening of bone density since the previous examination. Left Femur Total: which represents a worsening of 9.5%. Right Femur Total: which represents a worsening of 6.9%. BD/Dexa Bone Density Study IMPRESSION: The patient is considered osteopenic as outlined below according to World Alli Organization (WHO) criteria with a high fracture risk. There has been worsening of bone density since the previous examination. Reference Information: The T-score is the number of standard deviations above or below the standard which is normal for young adults at their peak bone mineral density. The World Health Organization (WHO) interprets the T-scores as follows: Above -1 Normal bone density Between -1 and -2.5 Osteopenia Equal to / or below -2.5 Osteoporosis As a practical clinical guideline, osteopenia may be graded as follows: Mild -1 through -1.5 Moderate -1.6 through -2.0 Severe -2.1 through -2.4 The Z-score is the number of standard deviations above or below age-matched controls. A Z-score of less than -1.5 would be considered abnormal. References: 1. NIH Osteoporosis and Related Bone Diseases www osteo.org 2. International Society for Clinical Densitometry www iscd.org 3. National Osteoporosis Foundation www nof.org Electronically Signed: Easton Mccrary MD at 13:19 EST , Service support ,
== END 2021-10-30 23:59 | disposition short-term general hospital (02) ==
LOC: OPBD 09:47
PROVIDERS: PCP Family Medicine; Referring Provider Family Medicine; Visit Provider Family Medicine
DX: Z78.0 Asymptomatic menopausal state (principal); Z12.31 Encounter for screening mammogram for malignant neoplasm of breast
CPT/HCPCS: 77063; 77067; 77080

== ENCOUNTER → 2022-10-22 | Outpatient (CLI) | payer MEDICARE, OTHER, SELFPAY ==
[2022-10-22 10:33] LABS: Vitamin D,25 Hydroxy 38.3 ng/mL
[2022-10-22 10:43] LABS: AST(SGOT) 14 U/L (15-37); Alanine Aminotransfer ALT/SGPT 22 U/L (13-56); Albumin, Serum 3.5 g/dL (3.2-5.0); Alkaline Phosphatase 61 U/L (45-117); Anion Gap 7 (5-15); BUN 19 mg/dL (7-18); BUN/Creat Ratio 29.7 RATIO (10-20); Bilirubin, Direct 0.09 mg/dL (0.00-0.30); Calcium,Total 9.2 mg/dL (8.5-10.1); Chloride 105 mmol/L (98-107); Cholesterol 217 mg/dL (200); Creatinine, Serum 0.64 mg/dL (0.55-1.02); EST Glomerular Filtration Rate 96 mL/min (>60); Est Glom Filt Rate - Afr Amer 116 mL/min (>60); Globulin 3.6 g/dL (2.2-4.2); Glucose 102 mg/dL (74-106); High Density Lipoprotein 63 mg/dL; Protein, Total 7.1 g/dL (6.4-8.2); Sodium Level 138 mmol/L (136-145); Thyroid Stim Hormone (TSH) 2.24 uIU/mL (0.358-3.74); Triglycerides 83 mg/dL; Very Low Density Lipoprotein 17 mg/dL (5-40)
== END | disposition home or self-care (01) ==
LOC: MTLAB 07:05
PROVIDERS: PCP Family Medicine; Referring Provider Family Medicine; Visit Provider Family Medicine
DX: E78.5 Hyperlipidemia, unspecified (principal); M85.80 Other specified disorders of bone density and structure, unspecified site
CPT/HCPCS: 36415; 80048; 80061; 80076; 82306; 84443

== ENCOUNTER → 2023-03-05 | Outpatient (CLI) | payer MEDICARE, OTHER, SELFPAY ==
--- NOTE | 2023-03-05 07:15 | BI_ITS ---
MAMMOGRAPHY - BILATERAL SCREENING REASON FOR EXAM: Female, 77 years old. Routine annual screening examination. PERTINENT HISTORY: Non-contributory. TECHNIQUE: Digital bilateral breast mark (3D mammographic acquisition) in the CC and MLO projections. 2-D mediolateral oblique (MLO) and craniocaudad (CC) views of both breasts were obtained. CAD: Full Field Digital Mammography with Computer Added Detection was performed. COMPARISON: Comparison is made with prior study dated October 30, 2021 and October 18, 2020. FINDINGS: Breast Composition: There are scattered areas of fibroglandular density. There are no dominant masses or suspicious calcifications. No other significant abnormalities are identified. There has been no significant change since the prior study. BI/SCRN MAMM (CAD)W/MARK BILAT IMPRESSION: Stable bilateral screening mammogram. Yearly follow-up mammogram recommended. (A) ASSESSMENT CATEGORY: BIRADS Category 1: Negative. A letter regarding these results will be sent to the patient by the facility within 30 days. Approximately 10% of breast cancers are not detected by mammography. A normal mammogram should not delay biopsy of a clinically suspicious abnormality. [id number] Electronically Signed: Easton Mccrary MD at 9:14 EDT ,
== END | disposition home or self-care (01) ==
LOC: OPBI 07:12
PROVIDERS: PCP Family Medicine; Referring Provider Family Medicine; Visit Provider Family Medicine
DX: Z12.31 Encounter for screening mammogram for malignant neoplasm of breast (principal)
CPT/HCPCS: 77063; 77067

== ENCOUNTER → 2024-01-06 | Outpatient (CLI) | payer MEDICARE, OTHER, SELFPAY ==
--- NOTE | 2024-01-06 13:55 | RAD_ITS ---
EXAM: XR RIGHT ANKLE COMPLETE, 3 OR MORE VIEWS CLINICAL INDICATION: persistent swelling at anterior distal fibula, pssible ATF avulsi TECHNIQUE: Frontal, lateral and oblique views of the right ankle. COMPARISON: No relevant prior studies available. FINDINGS: BONES/JOINTS: Unremarkable. No acute fracture. No subluxation. Normal alignment. Preservation of the joint space. No sclerotic or destructive changes observed. SOFT TISSUES: Soft tissue swelling laterally consistent with sprain. No radiopaque foreign body. RAD/Ankle min 3 Views IMPRESSION: Soft tissue swelling laterally consistent with sprain. No fracture. Electronically Signed: Joce Samuels MD at 2:59 EDT ,
--- OUTSIDE RECORDS SUMMARY | 2024-01-07 02:16 | XMS RPT_ITS | CCD ---
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 Name Role Phone Unavailable Unavailable Unavailable Fernanda Valle Unavailable Unavailable Fernanda Valle Unavailable Unavailable Jcarlos Jiménez Primary Care Provider FERNANDA VALLE Attending Unavailable FERNANDA VALLE Referring Unavailable JCARLOS JIMÉNEZ Primary Care Unavail able Jcarlos Jiménez Primary Care Provider Problems Problem Classification Problem Date Documented Da te Episodic/Chronic Other gastrointestinal disorders (1 source) Adrenal mass; 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 Results Test Name Value Interpretation Reference Range Facil ity Encounters Encounter Date Encounter Type Care Provider Facility Start: 12-02-2020 End: 12-02-2020 Orders Only Sharla Fraire Faith Work Phone: [facility] Start: 04-09-2019 End: 04-10-2019 Patient encounter procedure FERNANDA VALLE [facility] Start: 04-09-2019 End: 04-09-2019 Patient encounter procedure Fernanda Valle Work Phone: [facility] Ultrasound Procedures Date Procedure Procedure Detail Performing Clinician Start: 04-09-2019 Us retroperitoneal r eal time w/image limited External Transcribed Plan of Treatment Date Care Activity Detail Author Start: 06-27-2020 Influenza vaccination given Se quential Influenza Vaccine (#1) [facility] Start: 06-27-2019 Influenza vaccination given SE QUENTIAL INFLUENZA VACCINE (Season Ended) [facility] Start: 2012 Pneumococcal vaccination PNEUM OCOCCAL VACCINE AGE 65+ (1 of 2 - PCV13) [facility] Start: 1997 Administration of he rpes zoster vaccine Zoster Vaccines (1 of 2) [facility] Start: 1997 Screening for malign ant neoplasm of colon [facility] Start: 1965 Hepatitis C antibody , confirmatory test Hepatitis C Screening [facility] Start: 1963 COVID-19 Vaccine (1 of 2) COVID-19 V accine (1 of 2) [facility] Start: 1959 Adolescent depressio n screening assessment Depression Screening (PHQ9) [facility] Start: 1950 History and physical examination, annual for health maintenance Wellness Visit [facility] Start: 1947 Fall risk assessment Falls Risk Asse ssment [facility] Start: 1947 Hepatitis C antibody , confirmatory test HEPATITIS C SCREENING [facility] Start: 1947 Protein mass conc Mammogram [facility] Start: 1947 Screening for malign ant neoplasm of colon Colorectal Cancer Screening: Colonoscopy [facility] Start: 1947 Screening for osteoporosis Dexa Scan [facility] Start: 1947 Screening mammography Mammogram [facility] Start: 1947 Tetanus vaccination [facility] Payers Date Payer Category Payer Private Health Insurance HUMANA HUMANA OTHER AFTER MEDICARE xxxxxxxxx 2015-Present xxxxxxxxx [id number] 2015 Private Health Insurance [id number] 2015 Private Health Insurance HUMANA HUMANA OTHER AFTER MEDICARE [id number] 2015-Present [id number] 2012 Medicare MEDICARE MEDICAR E PART A & B xxxxxxxxxxx 2012-Present [place] xxxxxxxxxxx [id number] 2012 Medicare [id number] 2012 Medicare MEDICARE MEDICAR E PART A & B [id number] 2012-Present [place] [id number] 1947 Unknown [id number] Medicare [id number] Social History Date Type Detail Facility Tobacco smoking status NHIS Unknown if ev er smoked [facility] Sex Assigned At Not on file [facility] Summary Purpose Family History No Family History Records FoundNo Family History Records FoundNo Family History Records Found Advance Directives No Advanced Directives Records FoundDocuments on File Type Date Recorded Patient Tax Manager Public Expl anation Advance Directives and Livin g Will 04/09/2019 7:22 AM Documents on File Type Date Recorded Patient Tax Manager Public Expl anation Advance Directives and Livin g Will 04/09/2019 7:22 AM Reason for Referral Status Reason Specialty Diagnoses / Procedures Referred By Contact Referred To Contact Pending Review Radiology Diagnoses Adrenal mass (HCC) Procedures US Renal Only Fernanda Valle MD [address] [place] [address] Assessments Diagnosis Adrenal mass (HCC) Unspecified disorder of adrenal glands Additional Source Comments INFORMATION SOURCE (unrecogn ized section and content) DATE CREATED AUTHOR AUTHOR'S ORGANIZ ATION 04/10/2019 [facility] DATE CREATED AUTHOR AUTHOR'S ORGANIZ ATION 12/06/2021 [facility] Reason for Visit (unrecogniz ed section and content) FOR RECORDS PERTAINING TO PATIENTS WHO ARE OR HAVE BEEN ENROLLED IN A CHEMICAL DEPENDENCY/SUBSTANCEABUSE PROGRAM, SOME INFORMATION MAY BE OMITTED. This clinical summary was aggregated from multiple sources. Caution should be exercised in using it in the provision of clinical care. This summary normalizes information from multiple sources, and as a consequence, information in this document may materially change the coding, format and clinical context of patient data. In addition, data may be omitted in some cases. CLINICAL DECISIONS SHOULD BE BASED ON THE PRIMARY CLINICAL RECORDS. [employer] provides no warranty or guarantee of the accuracy or completeness of information in this document.
== END | disposition home or self-care (01) ==
PROVIDERS: PCP Family Medicine; Referring Provider Family Medicine; Visit Provider Family Medicine
DX: S96.911A Strain of unspecified muscle and tendon at ankle and foot level, right foot, initial encounter (principal)
CPT/HCPCS: 73610

== ENCOUNTER → 2024-06-21 | Outpatient (CLI) | payer MEDICARE, OTHER, SELFPAY ==
[2024-06-21 10:20] LABS: Hematocrit 44.1 % (37-47); Hemoglobin 14.1 g/dL (12.0-15.0); Mean Corpuscular Volume 90.6 fL (81-99); Mean Platelet Vol. 10.4 fl (6.2-12.0); Platelet Count 412 K/mm3 (150-450); RBC Distribution Width CV 13.6 % (11.6-14.6); RBC Distribution Width SD 45.3 fl (35.1-43.9); Red Blood Count 4.87 M/mm3 (4.2-5.4); White Blood Count 5.7 K/mm3 (4.4-11.0)
[2024-06-21 11:25] LABS: Vitamin D,25 Hydroxy 33.4 ng/mL
[2024-06-21 12:09] LABS: ALB/GLOB Ratio 0.9 RATIO (0.9-2.4); AST(SGOT) 16 U/L (15-37); Alanine Aminotransfer ALT/SGPT 20 U/L (13-56); Albumin, Serum 3.7 g/dL (3.2-5.0); Alkaline Phosphatase 74 U/L (45-117); Anion Gap 9 (5-15); BUN 17 mg/dL (7-18); BUN/Creat Ratio 26.4 RATIO (10-20); Chloride 106 mmol/L (98-107); Cholesterol 258 mg/dL (200); Creatinine, Serum 0.64 mg/dL (0.55-1.02); EST Glomerular Filtration Rate 95 mL/min (>60); Est Glom Filt Rate - Afr Amer 115 mL/min (>60); Globulin 3.9 g/dL (2.2-4.2); Glucose 106 mg/dL (74-106); High Density Lipoprotein 63 mg/dL; Potassium 3.8 mmol/L (3.5-5.1); Protein, Total 7.6 g/dL (6.4-8.2); Sodium Level 139 mmol/L (136-145); Triglycerides 90 mg/dL; Very Low Density Lipoprotein 18 mg/dL (5-40)
== END | disposition home or self-care (01) ==
LOC: MTLAB 07:08
PROVIDERS: PCP Family Medicine; Referring Provider Family Medicine; Visit Provider Family Medicine
DX: E78.5 Hyperlipidemia, unspecified (principal); M85.80 Other specified disorders of bone density and structure, unspecified site; K30 Functional dyspepsia
CPT/HCPCS: 36415; 80053; 80061; 82306; 84443; 85027

== ENCOUNTER → 2024-07-02 | Outpatient (CLI) | payer MEDICARE, OTHER, SELFPAY ==
--- NOTE | 2024-07-02 09:25 | BI_ITS ---
MAMMOGRAPHY - BILATERAL SCREENING REASON FOR EXAM: Female, 79 years old. Routine annual screening examination. PERTINENT HISTORY: Non-contributory. TECHNIQUE: Digital bilateral breast mark (3D mammographic acquisition) in the CC and MLO projections. 2-D mediolateral oblique (MLO) and craniocaudad (CC) views of both breasts were obtained. CAD: Full Field Digital Mammography with Computer Added Detection was performed. COMPARISON: Comparison is made with prior study dated March 05, 2023 and October 30, 2021. FINDINGS: Breast Composition: There are scattered areas of fibroglandular density. There are no dominant masses or suspicious calcifications. Stable small benign-appearing bilateral axillary lymph nodes. No other significant abnormalities are identified. There has been no significant change since the prior study. BI/SCRN MAMM (CAD)W/MARK BILAT IMPRESSION: Stable bilateral screening mammogram. Yearly follow-up mammogram recommended. (A) ASSESSMENT CATEGORY: BIRADS Category 2: Benign. A letter regarding these results will be sent to the patient by the facility within 30 days. Approximately 10% of breast cancers are not detected by mammography. A normal mammogram should not delay biopsy of a clinically suspicious abnormality. [id number] Electronically Signed: Easton Mccrary MD at 10:35 EDT ,
--- NOTE | 2024-07-02 09:25 | BD_ITS ---
STUDY: DUAL ENERGY X-RAY ABSORPTIOMETRY / DXA REASON FOR EXAM: Female, 79 years old. 627.8Menopausal postmenopausalBONE DENSITY REASON FOR EXAM TECHNIQUE: Bone Mineral Density (BMD) measurements of lumbar spine and bilateral hips were obtained. COMPARISON: Comparison is made with prior study April 29, 2022. FINDINGS: Lumbar Spine (L1-L4): g/cm2 (0.898) / T-score (-0.7) / Z-score (1.6) Findings are suggestive of normal bone density with a low fracture risk. Left Femur Total: g/cm2 (0.678) / T-score (-2.2) / Z-score (-0.3) Left Femoral Neck: g/cm2 (0.618) / T-score (-2.1) / Z-score (0.1) Right Femur Total: g/cm2 (0.693) / T-score (-2.0) / Z-score (-0.1) Right Femoral Neck: g/cm2 (0.606) / T-score (-2.2) / Z-score (0.0) The T-Scores on the most recent prior examination were: Lumbar Spine (L1-L4): There has been improvement of bone density since the previous examination. Left Femur Total: which represents an improvement of 3%. Right Femur Total: which represents an improvement of 6.6%. BD/Dexa Bone Density Study IMPRESSION: The patient is considered osteopenic as outlined below according to World Alli Organization (WHO) criteria with a high fracture risk. There has been improvement of bone density since the previous examination. Reference Information: The T-score is the number of standard deviations above or below the standard which is normal for young adults at their peak bone mineral density. The World Health Organization (WHO) interprets the T-scores as follows: Above -1 Normal bone density Between -1 and -2.5 Osteopenia Equal to / or below -2.5 Osteoporosis As a practical clinical guideline, osteopenia may be graded as follows: Mild -1 through -1.5 Moderate -1.6 through -2.0 Severe -2.1 through -2.4 The Z-score is the number of standard deviations above or below age-matched controls. A Z-score of less than -1.5 would be considered abnormal. References: 1. NIH Osteoporosis and Related Bone Diseases www osteo.org 2. International Society for Clinical Densitometry www iscd.org 3. National Osteoporosis Foundation www nof.org Electronically Signed: Easton Mccrary MD at 14:30 EDT ,
== END | disposition home or self-care (01) ==
LOC: OPBD 09:24
PROVIDERS: PCP Family Medicine; Referring Provider Family Medicine; Visit Provider Family Medicine
DX: Z12.31 Encounter for screening mammogram for malignant neoplasm of breast (principal); M81.0 Age-related osteoporosis without current pathological fracture
CPT/HCPCS: 77063; 77067; 77080

== ENCOUNTER → 2025-02-14 | Outpatient (CLI) | payer MEDICARE, OTHER, SELFPAY ==
--- NOTE | 2025-02-14 13:19 | RAD_ITS ---
PROCEDURE: CHEST PA AND LATERAL 02/14/2025 REASON FOR EXAM: COUGH TECHNIQUE: Frontal and lateral views of the chest. COMPARISON: None FINDINGS: Hardware: None Heart: The heart size is normal. Mediastinum: The mediastinal contour is unremarkable. Calcification of the aortic arch. Lungs: Hyperinflation. Minimal increased linear markings at the lung bases suggestive of either linear atelectasis and/or scarring. No focal infiltrate is seen. Bones: Degenerative changes are identified within the thoracic spine. RAD/Chest PA and Lateral IMPRESSION: Hyperinflation. Minimal increased linear markings at the lung bases suggestive of either linear atelectasis and/or scarring. Reading Location: [id number]
== END | disposition home or self-care (01) ==
LOC: MTRAD 13:17
PROVIDERS: PCP Family Medicine; Referring Provider Family Medicine; Visit Provider Family Medicine
DX: R05.9 Cough, unspecified (principal)
CPT/HCPCS: 71046

== ENCOUNTER → 2025-04-11 | Outpatient (CLI) | payer MEDICARE, OTHER, SELFPAY ==
[2025-04-11 18:21] LABS: Hematocrit 41.9 % (37-47); Hemoglobin 13.5 g/dL (12.0-15.0); Mean Corp Hgb Conc 32.2 g/dL (32-36); Mean Corpuscular Hgb 29.7 pg (27.0-32.0); Mean Corpuscular Volume 92.3 fL (81-99); Mean Platelet Vol. 11.4 fl (6.2-12.0); Platelet Count 440 K/mm3 (150-450); RBC Distribution Width SD 47.4 fl (35.1-43.9); Red Blood Count 4.54 M/mm3 (4.2-5.4); White Blood Count 9.7 K/mm3 (4.4-11.0)
[2025-04-11 19:47] LABS: Erythrocyte Sedimentation Rate 14 mm/hr (0-30)
== END | disposition home or self-care (01) ==
LOC: MTLAB 15:59
PROVIDERS: PCP Family Medicine
DX: R05.3 Chronic cough (principal)
CPT/HCPCS: 36415; 85027; 85652

== ENCOUNTER → 2025-05-25 | Outpatient (CLI) | payer MEDICARE, OTHER, SELFPAY ==
[2025-05-25 11:49] LABS: Hematocrit 42.7 % (37-47); Hemoglobin 14.0 g/dL (12.0-15.0); Immature Granulocytes Count 0.020 X10^3/uL (0.0-0.0); Mean Corp Hgb Conc 32.8 g/dL (32-36); Mean Corpuscular Volume 90.3 fL (81-99); Mean Platelet Vol. 10.2 fl (6.2-12.0); NRBC Flagged by Analyzer 0 % (0-5); Platelet Count 413 K/mm3 (150-450); RBC Distribution Width CV 13.2 % (11.6-14.6); RBC Distribution Width SD 43.8 fl (35.1-43.9); Red Blood Count 4.73 M/mm3 (4.2-5.4); White Blood Count 6.8 K/mm3 (4.4-11.0)
[2025-05-30 02:07] LABS: Ash, White <0.10 kU/L (Class 0); Black Walnut <0.10 kU/L (Class 0); Cat Hair / Dander,Stand <0.10 kU/L (Class 0); Cedar, Mountain <0.10 kU/L (Class 0); Cockroach, American <0.10 kU/L (Class 0); Dog Epithelia <0.10 kU/L (Class 0); Elm, American White <0.10 kU/L (Class 0); Mulberry, White <0.10 kU/L (Class 0); Oak, White <0.10 kU/L (Class 0); Pigweed, Rough <0.10 kU/L (Class 0); Ragweed, Short/Common <0.10 kU/L (Class 0); Sycamore, American <0.10 kU/L (Class 0)
== END | disposition home or self-care (01) ==
LOC: PAVLAB 11:27
PROVIDERS: PCP Family Medicine; Referring Provider Internal Medicine Critical Care Medicine; Visit Provider Internal Medicine Critical Care Medicine
DX: R05.9 Cough, unspecified (principal)
CPT/HCPCS: 36415; 82785; 85025; 86003

== ENCOUNTER → 2025-06-06 | Outpatient (CLI) | payer MEDICARE, OTHER, SELFPAY ==
--- OUTSIDE RECORDS SUMMARY | 2025-06-06 06:31 | XMS RPT_ITS | CCD ---
Author Organization [facility] Care Team Providers Care Fishing Rod Trimmer Name Role Phone Unavailable Unavailable Unavailable Saundra Corral Unavailable Unavailable Saundra Corral Unavailable Unavailable 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 Primary Care Provider SAUNDRA CORRAL Attending Unavailable SAUNDRA CORRAL Referring Unavailable CEDRICK ZAYAS Primary Care Unavail able 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 Primary Care Provider 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 MD Primary Care Provider CEDRICK ZAYAS Primary Care Unavailabl AMADA Moss Attending Unavailable Dr. 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 MD Primary Care Provider Dr. 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 MD Attending Provider Dr. 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 MD Referring Provider Cheorrmarissa [employer]IM[employer] INSTRUCTIONAL DESIGNER-CKenneth Attending Provider [phone] Betsy [employer] INSTRUCTIONAL DESIGNER-CKenneth Referring Provider Dr. Apolinar Lenz DO Attending Provider Dr. Apolinar Lenz DO Referring Provider 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 Primary Care Unavailable Molina Giles Attending Unavailable 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 Referring Unavailable 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 Referring Unavailable 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 Primary Care Unavailable Molina Giles Attending Unavailable Apolinar Lenz Attending Unavailable 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 Primary Care Unavailable 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 Referring Unavailable Cheorrow Kenneth SAMPSON Attending Unavailable [place] MULTIMEDIA INSTRUCTIONAL DESIGNERKenneth Referring Unavailable 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 Primary Care Unavailable 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 Primary Care Unavailable 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 Attending Unavailable 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 Referring Unavailable 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 Primary Care Unavailable Apolinar Lenz Referring Unavailable Apolinar Lenz Attending Unavailable 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 Referring Unavailable 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 Primary Care Unavailable 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 Attending Unavailable 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 Referring Unavailable 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 Primary Care Unavailable 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 Attending Unavailable Apolinar Lenz Referring Unavailable 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 Primary Care Unavailable Apolinar Lenz Attending Unavailable Medications Current Medications Medication Drug Class(es) Dates Sig (Normalized) Sig (Original) [id number] 200 actuat albuterol 0.09 mg/actuat metered dose inhaler (2 sources) beta2-Adrenergic Agonist Start: 05-25-2025 Albuterol Sulfate 90 mcg/actuation HFA aerosol inhaler Active INHALATION May 25, 2025 12:00am Ascorbic Acid (2 sources) Vitamin C ascorbic acid (VITAMIN C ORAL) Take by mouth once daily. Active benzonatate 100 mg oral capsule (2 sources) Non-narcotic Antitussive Start: 02-13-2025 take 2 capsules by mouth three times daily as needed benzonatate (TESSALON PERLE) 100 mg capsule Indications: Lower resp. tract infection Take 2 capsules by mouth three times a day as needed. 30 capsule 02/13/2025 Active Calcium Carbonate / vitamin D3 (2 sources) take 1 tablet by mouth once daily CALCIUM CARBONATE/VITAMIN D3 (CALCIUM 600 + D ORAL) Take 1 tablet by mouth once daily. Active DAILY MULTIVITAMIN TAB (2 sources) Start: 11-20-2005 DAILY MULTIVITAMIN TAB Take one(1) tablet daily. 0 11/20/2005 Active doxycycline monohydrate 100 mg oral tablet (5 sources) Tetracycline-class Drug Start: 02-13-2025 End: 02-20-2025 take 1 tablet by mouth twice daily doxycycline monohydrate 100 mg tablet Indications: Lower resp. tract infection Take 1 tablet by mouth two times a day for 7 days. 14 tablet 02/13/2025 02/20/2025 Active Start: 05-16-2024 End: 05-23-2024 take 1 capsule by mouth twice daily Doxycycline Hyclate 100 mg capsule Discontinued 100 mg PO TWICE A DAY 14 7 0 May 16, 2024 12:00am May 22, 2024 12:00am May 23, 2024 12:05am lansoprazole 30 mg delayed release oral capsule (2 sources) Proton Pump Inhibitor Start: 11-21-2005 PREVACID 30 MG CAP Take one(1) capsule twice daily. 0 11/21/2005 Active Multivitamin preparation (2 sources) Start: 12-17-2019 take 1 tablet by mouth once daily Multivitamin Active 1 TABLET PO DAILY December 17, 2019 1:00am vitamin E mixed/tocotrienol (VITAMIN E COMPLEX ORAL) (2 sources) vitamin E mixed/tocotrienol (VITAMIN E COMPLEX ORAL) Take by mouth once daily. Active Completed/Discontinued Medications Medication Drug Class(es) Dates Sig (Normalized) Sig (Original) amoxicillin 875 mg / clavulanate 125 mg oral tablet (3 sources) Penicillin-class Antibacterial Start: 07-16-2024 End: 07-26-2024 Amoxicillin-Pot Clavulanate 875-125 mg tablet Discontinued 1 {tbl} PO Q12H 20 10 0 July 16, 2024 12:00am July 25, 2024 12:00am July 26, 2024 12:07am Acute sinusitis, unspecified azithromycin 250 mg oral tablet (3 sources) Macrolide Antimicrobial Start: 10-08-2024 End: 05-25-2025 take 2-5 tablets by mouth once daily Azithromycin 250 mg tablet Discontinued 0 PO .COMPLEX 6 0 October 08, 2024 1:00am May 25, 2025 10:40am take 500 mg today (day 1), then 250 mg for 4 days (days 2-5) PO Multivitamin tablet (3 sources) Start: 12-17-2019 End: 05-25-2025 Multivitamin tablet Discontinued 1 {tbl} PO DAILY December 17, 2019 1:00am May 25, 2025 10:41am Start: 12-17-2019 Multivitamin t ablet Active 1 {tbl} PO DAILY December 17, 2019 1:00am Nirmatrelvir-Ritonavir (5 sources) Start: 09-01-2022 End: 05-16-2024 Nirmatrelvir-Ritonavir (Paxl ovid (Eua)) 300 mg (150 mg x 2)-100 mg tablets,dose pack Discontinued 0 PO .COMPLEX 30 0 September 01, 2022 12:00am May 16, 2024 8:10am take TWO 150 mg tablets of nirmatrelvir with ONE 100 mg tablet of ritonavir twice daily for 5 days PO Start: 09-01-2022 End: 05-16-2024 Nirmatrelvir-Ritonavir (Paxl ovid (Eua)) 300 mg (150 mg x 2)-100 mg tablets,dose pack Discontinued 0 PO .COMPLEX September 01, 2022 12:00am May 16, 2024 8:10am take TWO 150 mg tablets of nirmatrelvir with ONE 100 mg tablet of ritonavir twice daily for 5 days PO Start: 09-01-2022 Nirmatrelvir-R itonavir (Paxlovid (Eua)) 300 mg (150 mg x 2)- 100 mg tablets,dose pack Active 0 PO .COMPLEX September 01, 2022 12:00am take TWO 150 mg tablets of nirmatrelvir with ONE 100 mg tablet of ritonavir twice daily for 5 days PO Problems Active Problems Problem Classification Problem Date Documented Da te Episodic/Chronic Acute bronchitis (3 sources) Acute bronchitis; Translations: [Acute bronchitis, unspecified] 10-08-2024 Episodic Disorders of lipid metabolism (1 source) Hyperlipidemia, unspecified; Translations: [Hyperlipidemia, unspecified] Onset: 07-05-2024 Chronic Immunizations and screening for infectious disease (5 sources) Contact with and (suspected) exposure to other viral communicable diseases; Translations: [Exposure to influenza] 12-17-2019 Episodic Other gastrointestinal disorders (1 source) Adrenal mass; 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 tract infection] Onset: 02-13-2025 Episodic Other lower respiratory disease (1 source) Chronic cough; Translations: [Chronic cough] Onset: 04-14-2025 Episodic Other upper respiratory infections (13 sources) Laryngitis; Translations: [Acute laryngitis] 05-21-2020 Episodic Unclassified (5 sources) Age more than 65 years; Translations: [Over 65 years old] 10-23-2021 Unclassified (2 sources) Cough, unspecified; Translations: [Cough, unspecified] Onset: 06-03-2025 Viral infection (5 sources) Disease caused by 2019-nCoV; Translations: [COVID-19] 10-21-2021 Episodic Past or Other Problems Problem Classification Problem Date Documented Da te Episodic/Chronic Other screening for suspected conditions (not mental disorders or infectious disease) (1 source) Encounter for screening mammogram for malignant neoplasm of breast; Translations: [Encounter for screening mammogram for malignant neoplasm of breast] Onset: 07-22-2024 Episodic Results Test Name Value Interpretation Reference Range Facility Allergen Resp. Area 5on ALTERNARIA TEN <0.10 Normal Class 0 [facility] Comment on above: Order Comment: Reaso n for Exam: Asthma Performed By: #### L 3200.1600, L100.0100, L5500.0700 ####[facility] [address] [place], [address] LUCAS, WHITE <0.10 Normal Class 0 [facility] Comment on above: Order Comment: Reaso n for Exam: Asthma Performed By: #### L 3200.1600, L100.0100, L5500.0700 ####[facility] [address] [place], [address] ASPERGILLUS FUM <0.10 Normal Class 0 [facility] Comment on above: Order Comment: Reaso n for Exam: Asthma Performed By: #### L 3200.1600, L100.0100, L5500.0700 ####[facility] [address] [place], [address] BERMUDA GRASS <0.10 Normal Class 0 [facility] Comment on above: Order Comment: Reaso n for Exam: Asthma Performed By: #### L 3200.1600, L100.0100, L5500.0700 ####[facility] [address] [place], [address] BIRCH <0.10 Normal Class 0 [facility] Comment on above: Order Comment: Reaso n for Exam: Asthma Performed By: #### L 3200.1600, L100.0100, L5500.0700 ####[facility] [address] [place], [address] BLACK WALNUT <0.10 Normal Class 0 [facility] Comment on above: Order Comment: Reaso n for Exam: Asthma Performed By: #### L 3200.1600, L100.0100, L5500.0700 ####[facility] [address] [facility] [address] CAT HAIR/DANDER <0.10 Normal Class 0 [facility] Comment on above: Order Comment: Reaso n for Exam: Asthma Performed By: #### L 3200.1600, L100.0100, L5500.0700 ####[facility] [address] [place] [address] CLADOSPOR HERB <0.10 Normal Class 0 [facility] Comment on above: Order Comment: Reaso n for Exam: Asthma Performed By: #### L 3200.1600, L100.0100, L5500.0700 ####[facility] [address] [place], [place], [phone] COCKROACH,AMER <0.10 Normal Class 0 [facility] Comment on above: Order Comment: Reaso n for Exam: Asthma Performed By: #### L 3200.1600, L100.0100, L5500.0700 ####[facility] [address] [place], [address] COMMENT Comment Normal . [facility] Comment on above: Order Comment: Reaso n for Exam: Asthma Result Comment: Kaley barnhart of Specific IgE Class Description of Class ----- < 0.10 0 Negative 0.10 - 0.31 0/I Equivocal/Low 0.32 - 0.55 I Low 0.56 - 1.40 II Moderate 1.41 - 3.90 III High 3.91 - 19.00 IV Very High 19.01 - 100.00 V Very High >100.00 Very High Performed By: #### L 3200.1600, L100.0100, L5500.0700 ####[facility] [address] [place], [address] COTTONWOOD <0.10 Normal Class 0 [facility] Comment on above: Order Comment: Reaso n for Exam: Asthma Performed By: #### L 3200.1600, L100.0100, L5500.0700 ####[facility] [address] [place], [address] D FARINAE MITE <0.10 Normal Class 0 [facility] Comment on above: Order Comment: Reaso n for Exam: Asthma Performed By: #### L 3200.1600, L100.0100, L5500.0700 ####[facility] [address] [place], [address] D PTERONYSSINUS <0.10 Normal Class 0 [facility] Comment on above: Order Comment: Reaso n for Exam: Asthma Performed By: #### L 3200.1600, L100.0100, L5500.0700 ####[facility] [address] [place], [address] DOG EPITHELIA <0.10 Normal Class 0 [facility] Comment on above: Order Comment: Reaso n for Exam: Asthma Performed By: #### L 3200.1600, L100.0100, L5500.0700 ####[facility] [address] [place], [address] ELM,AMER WHITE <0.10 Normal Class 0 [facility] Comment on above: Order Comment: Reaso n for Exam: Asthma Performed By: #### L 3200.1600, L100.0100, L5500.0700 ####[facility] [address] [place], [address] IMMUNOGLOB E 18 IU/mL Normal 6-495 [facility] Comment on above: Order Comment: Reaso n for Exam: Asthma Performed By: #### L 3200.1600, L100.0100, L5500.0700 ####[facility] [address] [place], [address] MAPLE/BOX ELDER <0.10 Normal Class 0 [facility] Comment on above: Order Comment: Reaso n for Exam: Asthma Performed By: #### L 3200.1600, L100.0100, L5500.0700 ####[facility] [address] [place], [address] MOUNTAIN CEDAR <0.10 Normal Class 0 [facility] Comment on above: Order Comment: Reaso n for Exam: Asthma Performed By: #### L 3200.1600, L100.0100, L5500.0700 ####[facility] [address] [place], [address] Mouse Urine <0.10 Normal Class 0 [facility] Comment on above: Order Comment: Reaso n for Exam: Asthma Performed By: #### L 3200.1600, L100.0100, L5500.0700 ####[facility] [address] [place], [address] MULBERRY,WHITE <0.10 Normal Class 0 [facility] Comment on above: Order Comment: Reaso n for Exam: Asthma Performed By: #### L 3200.1600, L100.0100, L5500.0700 ####[facility] [address] [place], [address] OAK, WHITE <0.10 Normal Class 0 [facility] Comment on above: Order Comment: Reaso n for Exam: Asthma Performed By: #### L 3200.1600, L100.0100, L5500.0700 ####[facility] [address] [place], [address] PECAN <0.10 Normal Class 0 [facility] Comment on above: Order Comment: Reaso n for Exam: Asthma Performed By: #### L 3200.1600, L100.0100, L5500.0700 ####[facility] [address] [place], [address] PEN NOTATUM <0.10 Normal Class 0 [facility] Comment on above: Order Comment: Reaso n for Exam: Asthma Performed By: #### L 3200.1600, L100.0100, L5500.0700 ####[facility] [address] [place], [address] PIGWEED, ROUGH <0.10 Normal Class 0 [facility] Comment on above: Order Comment: Reaso n for Exam: Asthma Performed By: #### L 3200.1600, L100.0100, L5500.0700 ####[facility] [address] [place], [address] RAGWEED SH/COM <0.10 Normal Class 0 [facility] Comment on above: Order Comment: Reaso n for Exam: Asthma Performed By: #### L 3200.1600, L100.0100, L5500.0700 ####[facility] [address] [place], [address] ALBANIAN THISTLE <0.10 Normal Class 0 [facility] Comment on above: Order Comment: Reaso n for Exam: Asthma Performed By: #### L 3200.1600, L100.0100, L5500.0700 ####[facility] [address] [place], [address] SHEEP SORREL <0.10 Normal Class 0 [facility] Comment on above: Order Comment: Reaso n for Exam: Asthma Result Comment: Perf ormed at: - [facility] [id number] Cover Remover: Laura Vallejo MD, Phone: [phone] Performed By: #### L 3200.1600, L100.0100, L5500.0700 ####[facility] [address] [place], [place], [id number] SYCAMORE, AMER <0.10 Normal Class 0 [facility] Comment on above: Order Comment: Reaso n for Exam: Asthma Performed By: #### L 3200.1600, L100.0100, L5500.0700 ####[facility] [address] [place], [address] KENAN GRASS <0.10 Normal Class 0 [facility] Comment on above: Order Comment: Reaso n for Exam: Asthma Performed By: #### L 3200.1600, L100.0100, L5500.0700 ####[facility] [address] [place], [place], [id number] Immunoglobulin Crispin 5 IMMUNOGLOB E QN 16 IU/mL Normal 6-495 [facility] Comment on above: Result Comment: Perf ormed at: [facility] [id number] Cover Remover: Laura Vallejo MD, Phone: [phone] Performed By: #### L 3200.1600, L100.0100, L5500.0700 ####[facility] [address] [place], [place], [id number] Absolute lymphocyte countOrd ered By: Apolinar Lenz on 05-25-2025 Lymphocytes Auto (Unsp spec) [#/Vol] 1.89 10*3/uL 0.83-4.51 [facility] Absolute neutrophil countOrd ered By: Apolinar Lenz on 05-25-2025 Neutrophils (Bld) [#/Vol] 3.7 10*3/uL 2.0-7.7 [facility] Automated lymphocyte count a s percentage of total leukocytesOrdered By: Apolinar Lenz on 05-25-2025 Lymphocytes/100 WBC Auto (Unsp spec) 27.7 % 19-41 [facility] Basophil percentageOrdered B y: Apolinar Lenz on 05-25-2025 Basophils/100 WBC (Bld) 1.2 % High 0-1 [facility] CBC W/Diff, Automatedon 04-28-2024 Absolute Lymph 1.89 X10 3/uL Normal 0.83-4.51 [facility] Comment on above: Performed By: #### L 3200.1600, L100.0100, L5500.0700 ####[facility] [address] [place], [address] Absolute Neut 3.7 X10 3/uL Normal 2.0-7.7 [facility] Comment on above: Performed By: #### L 3200.1600, L100.0100, L5500.0700 ####[facility] [address] [place], [address] Basophils/100 WBC (Bld) 1.2 % High 0-1 [facility] Comment on above: Performed By: #### L 3200.1600, L100.0100, L5500.0700 ####[facility] [address] [place], [address] Eosinophils/100 WBC (Bld) 3.8 % Normal 0-5 [facility] Comment on above: Performed By: #### L 3200.1600, L100.0100, L5500.0700 ####[facility] [address] [place], [address] Erythrocyte distribution width (RBC) [Ratio] 13.2 % Normal 11.6-14.6 [facility] Comment on above: Performed By: #### L 3200.1600, L100.0100, L5500.0700 ####[facility] [address] [place], [address] Hematocrit (Bld) [Volume fraction] 42.7 % Normal 37-47 [facility] Comment on above: Performed By: #### L 3200.1600, L100.0100, L5500.0700 ####[facility] [address] [place], [address] Hemoglobin (Bld) [Mass/Vol] 14.0 g/dL Normal 12.0-15.0 [facility] Comment on above: Performed By: #### L 3200.1600, L100.0100, L5500.0700 ####[facility] [address] [place], [address] IG% 0.300 Normal 0.0-0.9 [facility] Comment on above: Result Comment: IG% - Immature Granulocytes (promyelocytes, myelocytes and metamyelocytes) > 1% indicates that a LEFT SHIFT is Present. Performed By: #### L 3200.1600, L100.0100, L5500.0700 ####[facility] [address] [place], [address] Lymphocytes/100 WBC (Bld) 27.7 % Normal 19-41 [facility] Comment on above: Performed By: #### L 3200.1600, L100.0100, L5500.0700 ####[facility] [address] [place], [address] MCH (RBC) [Entitic mass] 29.6 pg Normal 27.0-32.0 [facility] Comment on above: Performed By: #### L 3200.1600, L100.0100, L5500.0700 ####[facility] [address] [place], [address] MCHC (RBC) [Mass/Vol] 32.8 g/dL Normal 32-36 [facility] Comment on above: Performed By: #### L 3200.1600, L100.0100, L5500.0700 ####[facility] [address] [place], [address] MCV (RBC) [Entitic vol] 90.3 fL Normal 81-99 [facility] Comment on above: Performed By: #### L 3200.1600, L100.0100, L5500.0700 ####[facility] [address] [place], [address] Monocytes/100 WBC (Bld) 13.0 % High 0-10 [facility] Comment on above: Performed By: #### L 3200.1600, L100.0100, L5500.0700 ####[facility] [address] [place], [address] Neutrophils/100 WBC (Bld) 54.0 % Normal 47-70 [facility] Comment on above: Performed By: #### L 3200.1600, L100.0100, L5500.0700 ####[facility] [address] [place], [address] Nucleated RBC (Bld) [#/Vol] 0 10*3/uL Normal 0-5 [facility] Comment on above: Performed By: #### L 3200.1600, L100.0100, L5500.0700 ####[facility] [address] [place], [address] Platelet mean volume (Bld) [Entitic vol] 10.2 fL Normal 6.2-12.0 [facility] Comment on above: Performed By: #### L 3200.1600, L100.0100, L5500.0700 ####[facility] [address] [place], [address] Platelets (Bld) [#/Vol] 413 10*3/uL Normal 150-450 [facility] Comment on above: Performed By: #### L 3200.1600, L100.0100, L5500.0700 ####[facility] [address] [place], [address] RBC (Bld) [#/Vol] 4.73 10*6/uL Normal 4.2-5.4 [facility] Comment on above: Performed By: #### L 3200.1600, L100.0100, L5500.0700 ####[facility] [address] [place], [address] RDW SD 43.8 fl Normal 35.1-43.9 [facility] Comment on above: Performed By: #### L 3200.1600, L100.0100, L5500.0700 ####[facility] [address] [place], [address] WBC (Bld) [#/Vol] 6.8 10*3/uL Normal 4.4-11.0 [facility] Comment on above: Performed By: #### L 3200.1600, L100.0100, L5500.0700 ####[facility] [address] [place], [address] Eosinophil percentageOrdered By: Apolinar Lenz on 05-25-2025 Eosinophils/100 WBC (Bld) 3.8 % 0-5 [facility] Erythrocyte distribution wid th ratioOrdered By: Apolinar Lenz on 05-25-2025 Erythrocyte distribution width (RBC) [Ratio] 13.2 % 11.6-14.6 [facility] Erythrocyte distribution wid th standard deviationOrdered By: Apolinar Lenz on 05-25-2025 Erythrocyte distribution width (RBC) [Ratio] 43.8 fl 35.1-43.9 [facility] Hematocrit Auto (Bld) [Volum e fraction]Ordered By: Apolinar Lenz on 05-25-2025 Hematocrit (Bld) [Volume fraction] 42.7 % 37-47 [facility] Hemoglobin measurementOrdere d By: Apolinar Lenz on 05-25-2025 Hemoglobin (Bld) [Mass/Vol] 14.0 g/dL 12.0-15.0 [facility] IgEOrdered By: pAolinar Lenz o n 05-25-2025 IgE 16 IU/mL 6-495 [facility] [facility] Comment on above: Performed at: [facility] [address] [id number] Director: Laura Vallejo MD, Phone: [phone] Immature granulocytes/100 WB C Auto (Bld)Ordered By: Apolinar Lenz on 05-25-2025 Immature granulocytes/100 WBC (Bld) 0.300 % 0.0-0.9 [facility] Comment on above: IG% - Immature Granu locytes (promyelocytes, myelocytes and metamyelocytes) > 1% indicates that a LEFT SHIFT is Present. MCV (mean corpuscular volume ) determinationOrdered By: Apolinar Lenz on 05-25-2025 MCV (RBC) [Entitic vol] 90.3 fL 81-99 [facility] Mean corpuscular hemoglobin (MCH) determinationOrdered By: Apolinar Lenz on 05-25-2025 MCH (RBC) [Entitic mass] 29.6 pg 27.0-32.0 [facility] Mean corpuscular hemoglobin concentration (MCHC) determinationOrdered By: Apolinar Lenz on 05-25-2025 MCHC (RBC) [Mass/Vol] 32.8 g/dL 32-36 [facility] Mean platelet volume determi nationOrdered By: Apolinar Lenz on 05-25-2025 Platelet mean volume (Bld) [Entitic vol] 10.2 fL 6.2-12.0 [facility] Monocyte percentageOrdered B y: Apolinar Lenz on 05-25-2025 Monocytes/100 WBC (Bld) 13.0 % High 0-10 [facility] Neutrophil percentageOrdered By: Apolinar Lenz on 05-25-2025 Neutrophils/100 WBC (Bld) 54.0 % 47-70 [facility] No Panel InformationOrdered By: Apolinar Lenz on 05-25-2025 RAST Comment Comment . [facility] Comment on above: Levels of Specific I gE Class Description of Class ----- < 0.10 0 Negative 0.10 - 0.31 0/I Equivocal/Low 0.32 - 0.55 I Low 0.56 - 1.40 II Moderate 1.41 - 3.90 III High 3.91 - 19.00 IV Very High 19.01 - 100.00 V Very High >100.00 Very High Nucleated red blood cell per centageOrdered By: Apolinar Lenz on 05-25-2025 Nucleated RBC/100 WBC (Bld) [Ratio] 0 % 0-5 [facility] Platelet countOrdered By: Barajas on 05-25-2025 Platelets (Bld) [#/Vol] 413 10*3/uL 150-450 [facility] Pulmonary Visit Reporton Pulmonary Visit Report [facility] [address] [place] [address] OFFICE VISIT Date of Service: 05/25/25 MR#: [id number] Acct: [id number] Name: MAURI CONCEPCION Rep #: [id number] : 1945 Provider: Dr. Apolinar Lenz, Age/Sex: 79/F Location: [facility] Status: Signed Assessment and Plan Assessment and Plan (1) Cough: Status: Resolved Plan: The patient presented to our office today for the evaluation of cough, which have been present since January 2025. However, the patient indicated that the cough resolved spontaneously approximately 1 month ago. She is currently asymptomatic. In light of her struggles earlier this spring, will obtain baseline pulmonary function studies along with a CBC with differential, IgE and RAST profile. It is certainly possible that the patient may have a mild component of cough variant asthma. However, given her asymptomatic status, would not plan to initiate any bronchodilator therapy. Alternatively, the patient's cough could be related to underlying untreated gastroesophageal reflux. If the patient were to once again become symptomatic with a cough, I would plan to check an exhaled nitric oxide level and consider the initiation of PPI therapy. Orders: Orders Immunoglobulin E Today R05.9 - Cough, unspecified CBC W/Diff, Automated Today R05.9 - Cough, unspecified Allergen Resp. Area 5 Today R05.9 - Cough, unspecified PFT Complete - DLCO, Spirometry b/a bronchodilators, lung volumes Today R05.9 - Cough, unspecified HPI HPI Comments Details: The patient is a 79-year-old female who presents to the clinic today in referral for the evaluation of a cough. The patient reported that she had been experiencing a cough which initially began in January 2025. However, the patient reported that her cough subsided spontaneously approximately 1 month ago. During the time that she was symptomatic, the patient was seen in the urgent care 3 separate times and was treated with antibiotics and steroids. The only thing that led to symptom improvement her cough was the use of corticosteroids. More recently, the patient was evaluated by ENT and underwent laryngoscopy which was unremarkable. The patient has a limited smoking history of 17 pack years, having quit completely in 1981. In addition to her personal smoking history, she did grow up in a smoking household. She has never experienced any breathing related complications. She currently denies any sinus congestion or postnasal drip. She is not currently prescribed an JOHANNY inhibitor. The patient does report the presence of occasional heartburn/reflux, but is not currently on any medications to address her symptoms. The patient was provided with albuterol inhaler at one point in the past, but she did not appreciate any significant symptom improvement in her cough with the use of the medication. The patient currently denies any overt shortness of breath. 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 She does not currently keep any animals as pets in her home environment. She denies a history of seasonal allergies. 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 Required: No Accompanied by: Self Allergies No Known Allergies Allergy (Verified 05/25/25 10:40) Medications ???Medication ???Instructions ???Recorded ???Confirmed ???Type albuterol sulfate 90 mcg/actuation inhalation 05/25/25 05/25/25 His tory aerosol inhaler Have you fallen in the past year?: No PFSH Surgical History (Updated 05/25/25 @ 10:42 by Cathie Townsend LPN) H/O tubal ligation Hx of tonsillectomy History of appendectomy Family History (Updated 05/25/25 @ 10:44 by Cathie Townsend LPN) Mother Cancer Father Cancer lung Brother Cancer Sister Cancer bone, lung, liver Social History (Updated 05/25/25 @ 10:47 by Cathie Townsend LPN) current occupational status: employed Smoking Status: Former smoker how long ago did patient quit smokin, 17 years alcohol intake: never substance use type: does not use caffeine: Yes what type of physical activity do you participate in: none Review of Systems Resp Respiratory: Yes as per HPI Exam Const Constitutional: Positive conversant, cooperative, in no acute respiratory distress, well developed, well nourished and good hygiene Head Head: Yes normocephalic and Yes atraumatic Eyes Eye: Positive clear co (more content not included)... Normal [facility] RBC Auto (Bld) [#/Vol]Ordere d By: Apolinar Lenz on 05-25-2025 RBC (Bld) [#/Vol] 4.73 10*6/uL 4.2-5.4 [facility] Serum Uzbek sycamore IgE antibody assay (units/volume)Ordered By: Apolinar Lenz on 05-25-2025 Uzbek Dover IgE Qn (S) <0.10 kU/L Class 0 [facility] Serum Aspergillus fumigatus IgE antibody assay (units/volume)Ordered By: Apolinar Lenz on 05-25-2025 A. fumigatus IgE Qn (S) <0.10 kU/L Class 0 [facility] Serum Bermuda grass IgE anti body assay (units/volume)Ordered By: Apolinar Lenz on 05-25-2025 Bermuda grass IgE Qn (S) <0.10 kU/L Class 0 [facility] Serum Cladosporium herbarum IgE antibody assay (units/volume)Ordered By: Apolinar Lenz on 05-25-2025 C. herbarum IgE Qn (S) <0.10 kU/L Class 0 [facility] Serum Dermatophagoides ptero nyssinus specific IgE antibody assay (units/volume)Ordered By: Apolinar Lenz on 05-25-2025 house dust mite IgE Qn (S) <0.10 kU/L Class 0 [facility] Serum Fraxinus americana IgE antibody assay (units/volume)Ordered By: Apolinar Lenz on 05-25-2025 White Lucas IgE Qn (S) <0.10 kU/L Class 0 [facility] Serum Rumex acetosella IgE a ntibody assay (units/volume)Ordered By: Apolinar Lenz on 05-25-2025 Sheep N[place]owin IgE Qn (S) <0.10 kU/L Class 0 [facility] Comment on above: Performed at: [address] [id number] Director: Laura Vallejo MD, Phone: [phone] Serum black walnut IgE antib domonique assay (units/volume)Ordered By: Apolinar Lenz on 05-25-2025 Black [place] IgE Qn (S) <0.10 kU/L Class 0 [facility] Serum cottonwood IgE antibod y assay (units/volume)Ordered By: Apolinar Lenz on 05-25-2025 [place] IgE Qn (S) <0.10 kU/L Class 0 [facility] Serum dog epithelium IgE ant ibody assay (units/volume)Ordered By: Apolinar Lenz on 05-25-2025 Dog epithelium IgE Qn (S) <0.10 kU/L Class 0 [facility] Serum kenan IgE antibody a ssay (units/volume)Ordered By: Apolinar Lenz on 05-25-2025 Kenan IgE Qn (S) <0.10 kU/L Class 0 [facility] Serum white elm IgE antibody assay (units/volume)Ordered By: Apolinar Lenz on 05-25-2025 White Elm IgE Qn (S) <0.10 kU/L Class 0 [facility] Serum white mulberry IgE ant ibody assay (units/volume)Ordered By: Apolinar Lenz on 05-25-2025 White mulberry IgE Qn (S) <0.10 kU/L Class 0 [facility] White blood cell (WBC) count Ordered By: Apolinar Lenz on 05-25-2025 WBC (Bld) [#/Vol] 6.8 10*3/uL 4.4-11.0 [facility] CBC-Complete Blood Cnt No Di ffon 04-11-2025 Erythrocyte distribution width (RBC) [Ratio] 14.0 % Normal 11.6-14.6 [facility] Comment on above: Order Comment: Order Date: 04/11/25 Order Info: [id number] - CBC Order Info: [id number] - SED Performed By: #### L 100.0500 #### [facility] [address] [place], [address] Hematocrit (Bld) [Volume fraction] 41.9 % Normal 37-47 [facility] Comment on above: Order Comment: Order Date: 04/11/25 Order Info: [id number] - CBC Order Info: [id number] - SED Performed By: #### L 100.0500 #### [facility] [address] [place], [address] Hemoglobin (Bld) [Mass/Vol] 13.5 g/dL Normal 12.0-15.0 [facility] Comment on above: Order Comment: Order Date: 04/11/25 Order Info: [id number] - CBC Order Info: [id number] - SED Performed By: #### L 100.0500 #### [facility] [address] [place], [address] MCH (RBC) [Entitic mass] 29.7 pg Normal 27.0-32.0 [facility] Comment on above: Order Comment: Order Date: 04/11/25 Order Info: [id number] - CBC Order Info: [id number] - SED Performed By: #### L 100.0500 #### [facility] [address] [place], [address] MCHC (RBC) [Mass/Vol] 32.2 g/dL Normal 32-36 [facility] Comment on above: Order Comment: Order Date: 04/11/25 Order Info: [id number] - CBC Order Info: [id number] - SED Performed By: #### L 100.0500 #### [facility] [address] [place], [address] MCV (RBC) [Entitic vol] 92.3 fL Normal 81-99 [facility] Comment on above: Order Comment: Order Date: 04/11/25 Order Info: [id number] - CBC Order Info: [id number] - SED Performed By: #### L 100.0500 #### [facility] [address] [place], [address] Platelet mean volume (Bld) [Entitic vol] 11.4 fL Normal 6.2-12.0 [facility] Comment on above: Order Comment: Order Date: 04/11/25 Order Info: [id number] - CBC Order Info: [id number] - SED Performed By: #### L 100.0500 #### [facility] [address] [place], [address] Platelets (Bld) [#/Vol] 440 10*3/uL Normal 150-450 [facility] Comment on above: Order Comment: Order Date: 04/11/25 Order Info: [id number] - CBC Order Info: [id number] - SED Performed By: #### L 100.0500 #### [facility] [address] [place], [address] RBC (Bld) [#/Vol] 4.54 10*6/uL Normal 4.2-5.4 [facility] Comment on above: Order Comment: Order Date: 04/11/25 Order Info: [id number] - CBC Order Info: [id number] - SED Performed By: #### L 100.0500 #### [facility] [address] [place], [address] RDW SD 47.4 fl High 35.1-43.9 [facility] Comment on above: Order Comment: Order Date: 04/11/25 Order Info: [id number] - CBC Order Info: [id number] - SED Performed By: #### L 100.0500 #### [facility] [address] [place], [address] WBC (Bld) [#/Vol] 9.7 10*3/uL Normal 4.4-11.0 [facility] Comment on above: Order Comment: Order Date: 04/11/25 Order Info: [id number] - CBC Order Info: [id number] - SED Performed By: #### L 100.0500 #### [facility] [address] [place], [place], [address] Erythrocyte Sed Rateon 04-11 SED RATE 14 mm/hr Normal 0-30 [facility] Comment on above: Order Comment: Order Date: 04/11/25 Order Info: [id number] - CBC Order Info: [id number] - SED Performed By: #### L 101.9900 #### [facility] [address] [place], [place], [address] Erythrocyte distribution wid th ratioOrdered By: [facility] on 04-11-2025 Erythrocyte distribution width (RBC) [Ratio] 14.0 % 11.6-14.6 [facility] Erythrocyte distribution wid th standard deviationOrdered By: on 04-11-2025 Erythrocyte distribution width (RBC) [Ratio] 47.4 fl High 35.1-43.9 [facility] Erythrocyte sedimentation ra teOrdered By: Kenneth [facility] on 04-11-2025 ESR (Bld) [Velocity] 14 mm/h 0-30 [facility] Hematocrit Auto (Bld) [Volum e fraction]Ordered By: [facility] on 04-11-2025 Hematocrit (Bld) [Volume fraction] 41.9 % 37-47 [facility] Hemoglobin measurementOrdere d By: Kenneth Sidhu on 04-11-2025 Hemoglobin (Bld) [Mass/Vol] 13.5 g/dL 12.0-15.0 [facility] MCV (mean corpuscular volume ) determinationOrdered By: Kenneth [facility] on 04-11-2025 MCV (RBC) [Entitic vol] 92.3 fL 81-99 [facility] Mean corpuscular hemoglobin (MCH) determinationOrdered By: [facility] on 04-11-2025 MCH (RBC) [Entitic mass] 29.7 pg 27.0-32.0 [facility] Mean corpuscular hemoglobin concentration (MCHC) determinationOrdered By: Kenneth Boltonisabel on 04-11-2025 MCHC (RBC) [Mass/Vol] 32.2 g/dL 32-36 [facility] Mean platelet volume determi nationOrdered By: Kenneth Meyer on 04-11-2025 Platelet mean volume (Bld) [Entitic vol] 11.4 fL 6.2-12.0 [facility] Platelet countOrdered By: An gel orr on 04-11-2025 Platelets (Bld) [#/Vol] 440 10*3/uL 150-450 [facility] RBC Auto (Bld) [#/Vol]Ordere d By: Kenneth Meyer on 04-11-2025 RBC (Bld) [#/Vol] 4.54 10*6/uL 4.2-5.4 [facility] White blood cell (WBC) count Ordered By: Kenneth Meyer on 04-11-2025 WBC (Bld) [#/Vol] 9.7 10*3/uL 4.4-11.0 [facility] CNPNon 02-14-2025 [facility] Telephone ([facility]) -- MAURI CONCEPCION ([id number]) 1945 F Date Time Provider Department 02/14/25 AMADA TREVINO [facility] During your visit today, we recorded the following information about you: Kayla Mon LPN 02/14/2025 11:27 AM Signed [facility] office calling asking if patient had chest xray yesterday with her express care visit. Advised radiology closed on Friday. Requested copy of office notes be faxed to [phone], so they can decide if patient needs xray done. Printed and faxed as requested. Allergies As of Date: 02/14/2025 (No Known Allergies) Date Reviewed: 02/13/2025 Reviewed by: Sharla Miller MA - Fully Assessed Reason for Visit: [facility] request records [Other] Prescriptions as of 02/14/2025 - doxycycline monohydrate 100 mg tablet Take 1 tablet by mouth two times a day for 7 days. - benzonatate (TESSALON PERLE) 100 mg capsule Take 2 capsules by mouth three times a day as needed. - vitamin E mixed/tocotrienol (VITAMIN E COMPLEX ORAL) Take by mouth once daily. - ascorbic acid (VITAMIN C ORAL) Take by mouth once daily. - CALCIUM CARBONATE/VITAMIN D3 (CALCIUM 600 + D ORAL) Take 1 tablet by mouth once daily. - PREVACID 30 MG CAP Take one(1) capsule twice daily. - DAILY MULTIVITAMIN TAB Take one(1) tablet daily. Problem List As Of Date: 02/14/2025 (None) Encounter Status:Closed by KAYLA MON on 02/14/25 Normal [facility] Chest PA and Lateralon 02-14 Chest PA and Lateral [facility] Imaging Services [address] [place], [place] [address] Chest PA and Lateral MR#: [id number] Acct: [id number] Name: JUANAMAURI Tanesha Rep #: [id number] : 1945 F 79 From: [place] alvarez MD PCP: Dr. 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 MD Status: REG CLI Study: Chest PA and Lateral Date of Exam: 02/14/25 Exam# [id number] Ordering Dr: 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 PROCEDURE: CHEST PA AND LATERAL 02/14/2025 REASON FOR EXAM: COUGH TECHNIQUE: Frontal and lateral views of the chest. COMPARISON: None FINDINGS: Hardware: None Heart: The heart size is normal. Mediastinum: The mediastinal contour is unremarkable. Calcification of the aortic arch. Lungs: Hyperinflation. Minimal increased linear markings at the lung bases suggestive of either linear atelectasis and/or scarring. No focal infiltrate is seen. Bones: Degenerative changes are identified within the thoracic spine. RAD/Chest PA and Lateral IMPRESSION: Hyperinflation. Minimal increased linear markings at the lung bases suggestive of either linear atelectasis and/or scarring. Reading Location: [facility] CC: Dr. 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 This started 4 days ago/worsening. Has tried otc medication for relief. Symptoms are worsened by nothing. Nonsmoker. Denies asthma. 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 MEDICATIONS vitamin E mixed/tocotrienol (VITAMIN E COMPLEX ORAL) Take by mouth once daily. (Patient not taking: Reported on 02/13/2025) ascorbic acid (VITAMIN C ORAL) Take by mouth once daily. (Patient not taking: Reported on 02/13/2025) CALCIUM CARBONATE/VITAMIN D3 (CALCIUM 600 + D ORAL) Take 1 tablet by mouth once daily. (Patient not taking: Reported on 02/13/2025) PREVACID 30 MG CAP Take one(1) capsule twice daily. DAILY MULTIVITAMIN TAB Take one(1) tablet daily. (Patient not taking: Reported on 02/13/2025) FAMILY HISTORY Problem Relation Age of Onset Cancer Father throat Breast Cancer Paternal Grandmother other (lymphoma) Mother Social History Tobacco Use Smoking status: Former Current packs/day: 0.00 Average packs/day: 1 pack/day for 20.0 years (20.0 ttl pk-yrs) Types: Cigarettes Start date: 07/22/1969 Quit date: 07/22/1989 Years since quittin.5 Smokeless tobacco: Never Substance Use Topics Alcohol use: Not Currently Drug use: No Review of Systems Constitutional: Negative for chills, fatigue and fever. HENT: Positive for rhinorrhea. Negative for ear discharge, ear pain, sinus pressure, sinus pain and sore throat. Eyes: Negative for discharge and redness. Respiratory: Positive for cough. Negative for shortness of breath and wheezing. Cardiovascular: Negative for chest pain. Skin: Negative for rash. Objective BP 122/76 Pulse 80 Temp 36.8 ?C (98.3 ?F) Resp 16 Wt 93.4 kg (205 lb 14.6 oz) SpO2 97% BMI 33.23 kg/m? Physical Exam Constitutional: General: She is not in acute distress. Appearance: She is not toxic-appearing or diaphoretic. HENT: Head: Normocephalic and atraumatic. Cardiovascular: Rate and Rhythm: Normal rate and regular rhythm. Heart sounds: Normal heart sounds, S1 normal and S2 normal. Pulmonary: Effort: Pulmonary effort is normal. Breath sounds: Examination of the left-lower field reveals rales. Rales present. No decreased breath sounds, wheezing or rhonchi. Neurological: Mental Status: She is alert and oriented to person, place, and time. {ASSESSMENT/PLAN: 1. Lower resp. tract infection - ICD9: 519.8, ICD10: J22 No xray at time of exam Exam findings concerns for possible pneumonia - Discussed supportive care - Limit exposure to smoke and other inhaled irritants - Discussed possible red flags and when to seek medical attention - Follow up in 3-5 days or sooner if no better or worse -If you experience chest pain/shortness of breath go to ER - DOXYCYCLINE MONOHYDRATE 100 MG TABLET - BENZONATATE 100 MG CAPSULE Amada Trevino APRN.CNP Differential Diagnoses - pneumonia is more likely for the following reason(s): exam findings Additional Tests or Interventions The following testing was considered but ultimately not selected after discussion with patient/family: chest xray, not available today. Disposition The patient was discharged. Procedures Allergies As of Date: 02/13/2025 (No Known Allergies) Date Reviewed: 02/13/2025 Reviewed by: Sharla Miller MA - Fully Assessed Reason for Visit: Sinus Problem [99] Cmt: sinus pressure, drainage, chest congestion, cough x 3-4 days Primary Visit Diagnosis:Lower resp. tract infection [J22] Order(s):doxycycline monohydrate 100 mg tabletTake 1 tablet by mouth two times a day for 7 days.Disp: 14 tabletRfl: 0 benzonatate (TESSALON PERLE) 100 mg capsuleTake 2 capsules by mouth three times a day as needed.Disp: 30 capsuleRfl: 0 Prescriptions as of 02/13/2025 - doxycycline monohydrate 100 mg tablet Take 1 tablet by mouth two times a day for 7 days. - benzonatate (TESSALON PERLE) 100 mg capsule Take 2 ca (more content not included)... Normal [facility] Urgent Care Visit Reporton 1 12-09-2023 Urgent Care Visit Report [facility] [address], [address] [place] [address] OFFICE VISIT Date of Service: 10/08/24 MR#: [id number] Acct: [id number] Name: MAURI CONCEPCION Rep #: [id number] : 1945 Provider: ALCIDES Parham Age/Sex: 79/F Location: [facility] Status: Signed Intake Vital Signs 05/16/24 08:09 10/08/24 15:57 Height 5 ft 6 in 5 ft 6 in BP 142/74 H Blood Pressure Location Lt brachial Position Sitting Respiration 16 Pulse 68 Pulse Source Monitor Temp 98.0 F Temp Source Oral Pulse Oximetry (%) 98 Oxygen Delivery Method room air Intake Visit Reasons: Cough Chief Complaint: cough, sneezing Accompanied by: Self Is patient in pain?: No Allergies No Known Allergies Allergy (Verified 07/15/24 16:06) Medications ???Medication ???Instructions ???Recorded ???Confirmed ???Type multivitamin 1 tab PO DAILY 12/17/19 10/08/24 History azithromycin 250 mg tablet See Rx Instructions PO .COMPLEX #6 10/08/24 10/08/24 Rx tabs Have you fallen in the past year?: No PFSH Family History Other Cancer Social History Smoking Status: Former smoker alcohol intake: never HPI HPI Chief Complaint: cough, sneezing Details: MAURI CONCEPCION, is a 79 F who presents to the office today for complaint of cough and sneezing for the past several days. Patient states she has been around her family 1 of which has had pneumonia. Patient denies fever, chills, sweats. No nausea, vomiting or diarrhea. No loss of taste or smell. No other associated symptoms or alleviating/aggravating factors. ROS Const Constitutional: No other (6 system ROS completed with pertinent findings in the HPI otherwise normal.) Exam Const General: cooperative and well developed HENMT Head: normal to inspection and atraumatic Ears: hearing grossly normal bilaterally Nose: nasal discharge clear Face and sinus: normal facial exam Mouth: oral mucosae normal Throat: abnormal tonsil bilaterally hypertrophy 1+ Resp Effort Inspection: normal respiratory effort and no audible wheezes Auscultation: Bilateral: Clear to Auscultation Cardio Palpation: normal PMI Rate: regular rate Rhythm: regular rhythm Neuro General: patient alert and CN's II-XI intact bilaterally Psych Appearance: grossly normal Mental Status: mental status grossly normal Coding Level of Care Code Off vis,est,level 3 Diagnoses Acute bronchitis J20.9 Assessment and Plan Assessment and Plan (1) Acute bronchitis: Status: Acute Plan: Azithromycin as prescribed today. Encouraged to get plenty of rest, drink lots of clear liquids, and use Tylenol or Ibuprofen (unless contraindicated) for fever and comfort. Patient also educated on other symptomatic management techniques. To be seen in 7-10 days if no improvement; sooner if worsening of symptoms. Patient advised of potential red flags and when appropriate to report to the ED. Patient verbalized understanding and agreement with all the above. Medications: New azithromycin take 500 mg today (day 1), then 250 mg for 4 days (days 2-5) PO 6 tabs 0RF Clinical Quality Measures Falls Risk Screening/Assistive Devices Have you fallen in the past year?: No 10/08/24 1736 Date Molina MCGRATH Cosigner Signature: Date (if applicable) CC: Normal [facility] Urgent Care Visit Reporton 0 07-15-2024 Urgent Care Visit Report [facility] [address], [address] [place] [address] OFFICE VISIT Date of Service: 07/15/24 MR#: [id number] Acct: [id number] Name: MAURI CONCEPCION Rep #: [id number] : 1945 Provider: ALCIDES Parham Age/Sex: 79/F Location: [facility] Status: Signed Intake Vital Signs 05/16/24 08:09 07/15/24 16:06 Height 5 ft 6 in Weight: 199 lb 6 oz BMI 32.1 BP 126/84 H 128/68 H Blood Pressure Location Rt brachial Position Sitting Sitting Respiration 15 Pulse 87 74 Pulse Source NIBP Temp 99.5 F H 98.0 F Temp Source Temporal Temporal Pulse Oximetry (%) 98 98 Oxygen Delivery Method room air room air Intake Visit Reasons: SORE THROAT Chief Complaint: sore throat Factory 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 denies GUAJARDO, BA, cough, congestion, fever, drainage. declines covid testing PFSH Family History Other Cancer Social History Smoking Status: Former smoker alcohol intake: never HPI HPI Chief Complaint: sore throat Details: MAURI CONCEPCION, is a 79 F who presents to the office today for complaint of sore throat for the past 2 to 3 weeks. Patient denies fever, chills, sweats. No headache, shortness of breath or difficulty breathing. No nausea, vomiting, diarrhea. No other associated symptoms or alleviating/aggravating factors. ROS Const Constitutional: No other (6 system ROS completed with pertinent findings in the HPI otherwise normal.) Exam Const General: cooperative and well developed HENMT Head: normal to inspection and atraumatic Ears: hearing grossly normal bilaterally Nose: nasal discharge clear Face and sinus: normal facial exam Mouth: oral mucosae normal Throat: abnormal tonsil bilaterally hypertrophy 1+ Resp Effort Inspection: normal respiratory effort and no audible wheezes Auscultation: Bilateral: Clear to Auscultation Cardio Palpation: normal PMI Rate: regular rate Rhythm: regular rhythm Neuro General: patient alert and CN's II-XI intact bilaterally Psych Appearance: grossly normal Mental Status: mental status grossly normal Coding Level of Care Code Off vis,est,level 3 Diagnoses Acute pharyngitis, unspecified etiology J02.9 Pharyngitis/tonsillitis etiology: unspecified etiology Assessment and Plan Assessment and Plan (1) Pharyngitis, acute: Status: Acute Qualifiers: Pharyngitis/tonsillitis etiology: unspecified etiology Qualified Code(s): J02.9 - Acute pharyngitis, unspecified Plan: Augmentin as prescribed today. Encouraged to get plenty of rest, drink lots of clear liquids, and use Tylenol or Ibuprofen (unless contraindicated) for fever and comfort. Patient also educated on other symptomatic management techniques. To be seen in 7-10 days if no improvement; sooner if worsening of symptoms. Patient advised of potential red flags and when appropriate to report to the ED. Patient verbalized understanding and agreement with all the above. Medications: New amoxicillin-pot clavulanate 875-125 mg 1 TAB PO Q12H 10 days 20 tabs 0RF J01.90 - Acute sinusitis, unspecified Clinical Quality Measures Falls Risk Screening/Assistive Devices Have you fallen in the past year?: No 07/16/24 0714 Date Molina Parkinson Signature: Date (if applicable) CC: Normal [facility] Dexa Bone Density Studyon Dexa Bone Density Study [facility] Imaging Services [address] [place] [address] Dexa Bone Density Study MR#: [id number] Acct: [id number] Name: MAURI CONCEPCION Rep #: [id number] : 1945 F 79 From: Easton alvarez MD PCP: Dr. 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 MD Status: [facility] Study: Dexa Bone Density Study Date of Exam: 07/02/24 Exam# [id number] Ordering Dr: 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 [id number] STUDY: DUAL ENERGY X-RAY ABSORPTIOMETRY / DXA REASON FOR EXAM: Female, 79 years old. 627.8Menopausal postmenopausalBONE DENSITY REASON FOR EXAM TECHNIQUE: Bone Mineral Density (BMD) measurements of lumbar spine and bilateral hips were obtained. COMPARISON: Comparison is made with prior study April 29, 2022. FINDINGS: Lumbar Spine (L1-L4): g/cm2 (0.898) / T-score (-0.7) / Z-score (1.6) Findings are suggestive of normal bone density with a low fracture risk. Left Femur Total: g/cm2 (0.678) / T-score (-2.2) / Z-score (-0.3) Left Femoral Neck: g/cm2 (0.618) / T-score (-2.1) / Z-score (0.1) Right Femur Total: g/cm2 (0.693) / T-score (-2.0) / Z-score (-0.1) Right Femoral Neck: g/cm2 (0.606) / T-score (-2.2) / Z-score (0.0) The T-Scores on the most recent prior examination were: Lumbar Spine (L1-L4): There has been improvement of bone density since the previous examination. Left Femur Total: which represents an improvement of 3%. Right Femur Total: which represents an improvement of 6.6%. BD/Dexa Bone Density Study IMPRESSION: The patient is considered osteopenic as outlined below according to World Alli Organization (WHO) criteria with a high fracture risk. There has been improvement of bone density since the previous examination. Reference Information: The T-score is the number of standard deviations above or below the standard which is normal for young adults at their peak bone mineral density. The World Health Organization (WHO) interprets the T-scores as follows: Above -1 Normal bone density Between -1 and -2.5 Osteopenia Equal to / or below -2.5 Osteoporosis As a practical clinical guideline, osteopenia may be graded as follows: Mild -1 through -1.5 Moderate -1.6 through -2.0 Severe -2.1 through -2.4 The Z-score is the number of standard deviations above or below age-matched controls. A Z-score of less than -1.5 would be considered abnormal. References: 1. NIH Osteoporosis and Related Bone Diseases www osteo.org 2. International Society for Clinical Densitometry www iscd.org 3. National Osteoporosis Foundation www nof.org Electronically Signed: Easton Mccrary MD at 14:30 EDT , CC: Dr. 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: Signed Normal [facility] SCRN MAMM (CAD)W/MARK BILATo n 07-02-2024 SCRN MAMM (CAD)W/MARK BILAT [facility] Imaging Services [address] [place] [address] SCRN MAMM (CAD)W/MARK BILAT MR#: [id number] Acct: [id number] Name: MAURI CONCEPCION Rep #: [id number] : 1945 F 79 From: Easton alvarez MD PCP: Dr. 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 MD Status: REG CLI Study: SCRN MAMM (CAD)W/MARK BILAT Date of Exam: 04/19 Exam# [id number] Ordering Dr: 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 [id number] MAMMOGRAPHY - BILATERAL SCREENING REASON FOR EXAM: Female, 79 years old. Routine annual screening examination. PERTINENT HISTORY: Non-contributory. TECHNIQUE: Digital bilateral breast mark (3D mammographic acquisition) in the CC and MLO projections. 2-D mediolateral oblique (MLO) and craniocaudad (CC) views of both breasts were obtained. CAD: Full Field Digital Mammography with Computer Added Detection was performed. COMPARISON: Comparison is made with prior study dated March 05, 2023 and October 30, 2021. FINDINGS: Breast Composition: There are scattered areas of fibroglandular density. There are no dominant masses or suspicious calcifications. Stable small benign-appearing bilateral axillary lymph nodes. No other significant abnormalities are identified. There has been no significant change since the prior study. BI/SCRN MAMM (CAD)W/MARK BILAT IMPRESSION: Stable bilateral screening mammogram. Yearly follow-up mammogram recommended. (A) ASSESSMENT CATEGORY: BIRADS Category 2: Benign. A letter regarding these results will be sent to the patient by the facility within 30 days. Approximately 10% of breast cancers are not detected by mammography. A normal mammogram should not delay biopsy of a clinically suspicious abnormality. [id number] Electronically Signed: Easton Mccrary MD at 10:35 EDT , CC: Dr. 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: Signed Normal [facility] CBC-Complete Blood Cnt No Di ffon 06-21-2024 Erythrocyte distribution width (RBC) [Ratio] 13.6 % Normal 11.6-14.6 [facility] Comment on above: Order Comment: Order Date: 06/08/24 Order Info: [id number] - CBC Performed By: #### L 100.0500 #### [facility] [address] [place], [place], [id number] [phone] Hematocrit (Bld) [Volume fraction] 44.1 % Normal 37-47 [facility] Comment on above: Order Comment: Order Date: 06/08/24 Order Info: [id number] - CBC Performed By: #### L 100.0500 #### [facility] [address] [place], [address] Hemoglobin (Bld) [Mass/Vol] 14.1 g/dL Normal 12.0-15.0 [facility] Comment on above: Order Comment: Order Date: 06/08/24 Order Info: [id number] - CBC Performed By: #### L 100.0500 #### [facility] [address] [place], [address] MCH (RBC) [Entitic mass] 29.0 pg Normal 27.0-32.0 [facility] Comment on above: Order Comment: Order Date: 06/08/24 Order Info: [id number] - CBC Performed By: #### L 100.0500 #### [facility] [address] [place], [address] MCHC (RBC) [Mass/Vol] 32.0 g/dL Normal 32-36 [facility] Comment on above: Order Comment: Order Date: 06/08/24 Order Info: [id number] - CBC Performed By: #### L 100.0500 #### [facility] [address] [place], [address] MCV (RBC) [Entitic vol] 90.6 fL Normal 81-99 [facility] Comment on above: Order Comment: Order Date: 06/08/24 Order Info: [id number] - CBC Performed By: #### L 100.0500 #### [facility] [address] [place], [address] Platelet mean volume (Bld) [Entitic vol] 10.4 fL Normal 6.2-12.0 [facility] Comment on above: Order Comment: Order Date: 06/08/24 Order Info: [id number] - CBC Performed By: #### L 100.0500 #### [facility] [address] [place], [address] Platelets (Bld) [#/Vol] 412 10*3/uL Normal 150-450 [facility] Comment on above: Order Comment: Order Date: 06/08/24 Order Info: [id number] - CBC Performed By: #### L 100.0500 #### [facility] [address] [place], [address] RBC (Bld) [#/Vol] 4.87 10*6/uL Normal 4.2-5.4 [facility] Comment on above: Order Comment: Order Date: 06/08/24 Order Info: [id number] - CBC Performed By: #### L 100.0500 #### [facility] [address] [place], [address] RDW SD 45.3 fl High 35.1-43.9 [facility] Comment on above: Order Comment: Order Date: 06/08/24 Order Info: [id number] - CBC Performed By: #### L 100.0500 #### [facility] [address] [place], [address] WBC (Bld) [#/Vol] 5.7 10*3/uL Normal 4.4-11.0 [facility] Comment on above: Order Comment: Order Date: 06/08/24 Order Info: [id number] - CBC Performed By: #### L 100.0500 #### [facility] [address] [place], [address] Comprehensive Metabolic Prof inon 06-21-2024 Albumin [Mass/Vol] 3.7 g/dL Normal 3.2-5.0 [facility] Comment on above: Order Comment: Order Date: 06/08/24 Order Info: [id number] - CMP Order Info: [id number] - LIPID Order Info: [id number] - TSH Performed By: #### L 506.1000, L500.4050, L500.4100, L501.9520 #### [facility] [address] [place], [address] Albumin/Globulin [Mass ratio] 0.9 {ratio} Normal 0.9-2.4 [facility] Comment on above: Order Comment: Order Date: 06/08/24 Order Info: [id number] - CMP Order Info: [id number] - LIPID Order Info: [id number] - TSH Performed By: #### L 506.1000, L500.4050, L500.4100, L501.9520 #### [facility] [address] [place], [address] ALK P 74 U/L Normal 45-117 [facility] Comment on above: Order Comment: Order Date: 06/08/24 Order Info: [id number] - CMP Order Info: [id number] - LIPID Order Info: [id number] - TSH Performed By: #### L 506.1000, L500.4050, L500.4100, L501.9520 #### [facility] [address] [place], [address] ALT [Catalytic activity/Vol] 20 U/L Normal 13-56 [facility] Comment on above: Order Comment: Order Date: 06/08/24 Order Info: [id number] - CMP Order Info: [id number] - LIPID Order Info: [id number] - TSH Performed By: #### L 506.1000, L500.4050, L500.4100, L501.9520 #### [facility] [address] [place], [address] AST [Catalytic activity/Vol] 16 U/L Normal 15-37 [facility] Comment on above: Order Comment: Order Date: 06/08/24 Order Info: [id number] - CMP Order Info: [id number] - LIPID Order Info: [id number] - TSH Performed By: #### L 506.1000, L500.4050, L500.4100, L501.9520 #### [facility] [address] [place], [address] Bilirubin [Mass/Vol] 0.20 mg/dL Normal 0.20-1.00 [facility] Comment on above: Order Comment: Order Date: 06/08/24 Order Info: [id number] - CMP Order Info: [id number] - LIPID Order Info: [id number] - TSH Result Comment: For patients on eltrombopag therapy, use of Dimension Cosby TBIL is not recommended. Performed By: #### L 506.1000, L500.4050, L500.4100, L501.9520 #### [facility] [address] [place], [address] BUN/CRE 26.4 RATIO High 10-20 [facility] Comment on above: Order Comment: Order Date: 06/08/24 Order Info: [id number] - CMP Order Info: [id number] - LIPID Order Info: 3 - TSH Performed By: #### L 506.1000, L500.4050, L500.4100, L501.9520 #### [facility] [address] [place], [address] CA,Total 9.0 mg/dL Normal 8.5-10.1 [facility] Comment on above: Order Comment: Order Date: 06/08/24 Order Info: [id number]- - CMP Order Info: [id number] - LIPID Order Info: 3 - TSH Performed By: #### L 506.1000, L500.4050, L500.4100, L501.9520 #### [facility] [address] [place], [address] Chloride [Moles/Vol] 106 mmol/L Normal 98-107 [facility] Comment on above: Order Comment: Order Date: 06/08/24 Order Info: [id number]- - CMP Order Info: [id number] - LIPID Order Info: 3 - TSH Performed By: #### L 506.1000, L500.4050, L500.4100, L501.9520 #### [facility] [address] [place], [address] CO2 [Moles/Vol] 24.0 mmol/L Normal 21.0-32.0 [facility] Comment on above: Order Comment: Order Date: 06/08/24 Order Info: [id number] - CMP Order Info: [id number] - LIPID Order Info: 3 - TSH Performed By: #### L 506.1000, L500.4050, L500.4100, L501.9520 #### [facility] [address] [place], [address] Creatinine [Mass/Vol] 0.64 mg/dL Normal 0.55-1.02 [facility] Comment on above: Order Comment: Order Date: 06/08/24 Order Info: [id number] - CMP Order Info: - LIPID Order Info: [id number] - TSH Result Comment: The validity of the calculated GFR GFRAA in patients over 70 years has not been determined. Clinical correlation is essential. Performed By: #### L 506.1000, L500.4050, L500.4100, L501.9520 #### [facility] [address] [place], [address] EST GFR - AA 115 mL/min Normal >60 [facility] Comment on above: Order Comment: Order Date: 06/08/24 Order Info: [id number] - CMP Order Info: - LIPID Order Info: 3 - TSH Result Comment: Afri can Uzbek GFR Calc Performed By: #### L 506.1000, L500.4050, L500.4100, L501.9520 #### [facility] [address] [place], [address] GAP 9 Normal 5-15 [facility] Comment on above: Order Comment: Order Date: 06/08/24 Order Info: [id number] - CMP Order Info: - LIPID Order Info: 3 - TSH Performed By: #### L 506.1000, L500.4050, L500.4100, L501.9520 #### [facility] [address] [place], [address] GFR/1.73 sq M.predicted among non-blacks MDRD (S/P/Bld) [Vol rate/Area] 95 mL/min/{1.73_m2} Normal >60 [facility] Comment on above: Order Comment: Order Date: 06/08/24 Order Info: [id number] - CMP Order Info: [id number] - LIPID Order Info: [id number] - TSH Result Comment: Non- GFR Calc Performed By: #### L 506.1000, L500.4050, L500.4100, L501.9520 #### [facility] [address] [place], [address] Globulin (S) [Mass/Vol] 3.9 g/dL Normal 2.2-4.2 [facility] Comment on above: Order Comment: Order Date: 06/08/24 Order Info: 785-1 - CMP Order Info: [id number] - LIPID Order Info: [id number] - TSH Performed By: #### L 506.1000, L500.4050, L500.4100, L501.9520 #### [facility] [address] [place], [address] Glucose [Mass/Vol] 106 mg/dL Normal 74-106 [facility] Comment on above: Order Comment: Order Date: 06/08/24 Order Info: [id number] - CMP Order Info: - LIPID Order Info: [id number] - TSH Result Comment: Fast ing Glucose result from 100 to 125 mg/dL suggests IMPAIRED HOMEOSTASIS per A.D.A. criteria. Performed By: #### L 506.1000, L500.4050, L500.4100, L501.9520 #### [facility] [address] [place], [address] Potassium [Moles/Vol] 3.8 mmol/L Normal 3.5-5.1 [facility] Comment on above: Order Comment: Order Date: 06/08/24 Order Info: [id number] - CMP Order Info: [id number] - LIPID Order Info: [id number] - TSH Performed By: #### L 506.1000, L500.4050, L500.4100, L501.9520 #### [facility] [address] [place], [address] Sodium [Moles/Vol] 139 mmol/L Normal 136-145 [facility] Comment on above: Order Comment: Order Date: 06/08/24 Order Info: [id number] - CMP Order Info: - LIPID Order Info: 3 - TSH Performed By: #### L 506.1000, L500.4050, L500.4100, L501.9520 #### [facility] [address] [place], [address] T PROT 7.6 g/dL Normal 6.4-8.2 [facility] Comment on above: Order Comment: Order Date: 06/08/24 Order Info: 785- - CMP Order Info: [id number] - LIPID Order Info: [id number] - TSH Performed By: #### L 506.1000, L500.4050, L500.4100, L501.9520 #### [facility] [address] [place], [address] Urea nitrogen [Mass/Vol] 17 mg/dL Normal 7-18 [facility] Comment on above: Order Comment: Order Date: 06/08/24 Order Info: [id number] - CMP Order Info: - LIPID Order Info: [id number] - TSH Performed By: #### L 506.1000, L500.4050, L500.4100, L501.9520 #### [facility] [address] [place], [address] Lipid Profileon 06-21-2024 Cholesterol [Mass/Vol] 258 mg/dL High 200 [facility] Comment on above: Order Comment: Order Date: 06/08/24 Order Info: [id number] - CMP Order Info: - LIPID Order Info: [id number] - TSH Result Comment: <200 mg/dL Desirable 200-240 mg/dL Borderline >240 mg/dL High Risk Performed By: #### L 506.1000, L500.4050, L500.4100, L501.9520 #### [facility] [address] [place], [address] Cholesterol in HDL [Mass/Vol] 63 mg/dL Normal [facility] Comment on above: Order Comment: Order Date: 06/08/24 Order Info: 785- - CMP Order Info: - LIPID Order Info: [id number] - TSH Result Comment: The drugs N-Acetylcysteine and Metamizole may falsely depress this assay. Reference Range HDL <40 mg/dL Low HDL Cholesterol HDL >or= 60 mg/dL High HDL Cholesterol Performed By: #### L 506.1000, L500.4050, L500.4100, L501.9520 #### [facility] [address] [place], [address] Cholesterol in LDL [Mass/Vol] 177 mg/dL High 0-130 [facility] Comment on above: Order Comment: Order Date: 06/08/24 Order Info: [id number] - CMP Order Info: [id number] - LIPID Order Info: [id number] - TSH Performed By: #### L 506.1000, L500.4050, L500.4100, L501.9520 #### [facility] [address] [place], [address] Cholesterol in VLDL [Mass/Vol] 18 mg/dL Normal 5-40 [facility] Comment on above: Order Comment: Order Date: 06/08/24 Order Info: [id number] - CMP Order Info: [id number] - LIPID Order Info: 6-3 - TSH Performed By: #### L 506.1000, L500.4050, L500.4100, L501.9520 #### [facility] [address] [place], [address] Triglyceride [Mass/Vol] 90 mg/dL Normal [facility] Comment on above: Order Comment: Order Date: 06/08/24 Order Info: [id number] - CMP Order Info: [id number] - LIPID Order Info: [id number] - TSH Result Comment: The drugs N-Acetylcysteine and Metamizole may falsely depress this assay. Serum Triglycerides Reference Interval Normal <150 mg/dL Borderline high 150 - 199 mg/dL High 200 - 499 mg/dL Very High > or = 500 mg/dL Performed By: #### L 506.1000, L500.4050, L500.4100, L501.9520 #### [facility] [address] [place], [place], [address] Thyroid Stim Hormone (TSH)on 06-21-2024 TSH 2.500 uIU/mL Normal 0.358-3.740 [facility] Comment on above: Order Comment: Order Date: 06/08/24 Order Info: [id number] - CMP Order Info: [id number] - LIPID Order Info: [id number] - TSH Performed By: #### L 506.1000, L500.4050, L500.4100, L501.9520 #### [facility] [address] [place], [address] Vitamin D,25 Hydroxyon 06-21 Vitamin D 25-OH 33.4 ng/mL Normal [facility] Comment on above: Order Comment: Order Date: 06/08/24 Order Info: [id number] - [id number] Result Comment: Karishma min D 25(OH) Status Range Deficiency <20 ng/mL (50nmol/L) Insufficiency 20 - 30 ng/mL (50 - 75 nmol/L) Sufficiency 30 - 100 ng/mL (75 - 250 nmol/L) Toxicity >100 ng/mL (>250 nmol/L) Performed By: #### L 506.1000, L500.4050, L500.4100, L501.9520 #### [facility] [address] [place], [address] US RENAL ONLYon 04-09-2019 US RENAL ONLY EXAMINATION: US RENAL ONLY HISTORY: ORDERING SYSTEM PROVIDED HISTORY: Adrenal mass (HCC), TECHNOLOGIST PROVIDED HISTORY: Illness/Other Reason for exam: Recheck right adrenal mass Cancer History: unknown Surgery, RadiationHistory: unknown Encounter Type: Subsequent/Follow-up Additional signs and symptoms: no ORDERING SYSTEM PROVIDED DIAGNOSIS CODES: E27.9 Adrenal mass (HCC) COMPARISON: 03/19/2018 ultrasound and 02/21/2015 CT TECHNIQUE: Ultrasound of the kidneys. FINDINGS: Right kidney: Normal in size and echogenicity. Measures 10.2 x 4.1 x 5.2 cm. 1.4 cm cortical thickness.. Normal cortical medullary differentiation pattern. No hydronephrosis or renal calculus. Left kidney: Normal in size and echogenicity. Measures 10.7 x 5.1 x 4.6 cm. 1.4 cm cortical thickness.. Normal cortical medullary differentiation pattern. No hydronephrosis or renal calculus. Right adrenal: Mixed solid and cystic right adrenal mass with a few scattered coarse calcifications, measures 3.7 x 3.2 x 3.6 cm. Internal cystic component measures 1.6 x 1.1 x 1.5 cm. Overall findings are similar in size and appearance compared to 03/19/2018 (3.4 x 3.2 x 3.6 cm) and 03/19/2017 (3.8 x 3.0 x 3.7 cm). IMPRESSION: 1. Right adrenal mass measuring up to 3.7 cm, similar in size and appearance compared to 03/19/2018 and 03/19/2017 examinations. The ultrasound and prior CT characteristics suggest adrenal adenoma or myelolipoma. 2. No hydronephrosis or nephrolithiasis. [employer] Workstation ID: [id number] Dictated by: PAOLO PAK on FriApr 09, 2019 8:47:45 AM EDT Transcribed by: JOY PARKER on FriApr 09, 2019 9:05:39 AM EDT Finalized by: PAOLO PAK on FriApr 09, 2019 7:32:12 PM EDT Normal [facility] Comment on above: Order Comment: ORDER CONVERSION Injury/Trauma or Illness?:Illness/Other How long have you had these symptoms (acute/chronic)?:Chronic Reason for exam?:Recheck right adrenal mass History of cancer?:unknown Surgeries, chemotherapy, or radiation?:unknown Type of Exam?:Subsequent/Follow-up Additional signs and symptoms?:no US Renal Onlyon 04-09-2019 Appearance Nom (U) 1. Right adrenal mas s measuring up to 3.7 cm, similar in size and appearance compared to 03/19/2018 and 03/19/2017 examinations. The ultrasound and prior CT characteristics suggest adrenal adenoma or myelolipoma. 2. No hydronephrosis or nephrolithiasis. [employer] Workstation ID: [id number] [facility] EXAMINATION: US SHANITA L ONLY HISTORY: ORDERING SYSTEM PROVIDED HISTORY: Adrenal mass (HCC), TECHNOLOGIST PROVIDED HISTORY: Illness/Other Reason for exam: Recheck right adrenal mass Cancer History: unknown Surgery, RadiationHistory: unknown Encounter Type: Subsequent/Follow-up Additional signs and symptoms: no ORDERING SYSTEM PROVIDED DIAGNOSIS CODES: E27.9 Adrenal mass (HCC) COMPARISON: 03/19/2018 ultrasound and 02/21/2015 CT TECHNIQUE: Ultrasound of the kidneys. FINDINGS: Right kidney: Normal in size and echogenicity. Measures 10.2 x 4.1 x 5.2 cm. 1.4 cm cortical thickness.. Normal cortical medullary differentiation pattern. No hydronephrosis or renal calculus. Left kidney: Normal in size and echogenicity. Measures 10.7 x 5.1 x 4.6 cm. 1.4 cm cortical thickness.. Normal cortical medullary differentiation pattern. No hydronephrosis or renal calculus. Right adrenal: Mixed solid and cystic right adrenal mass with a few scattered coarse calcifications, measures 3.7 x 3.2 x 3.6 cm. Internal cystic component measures 1.6 x 1.1 x 1.5 cm. Overall findings are similar in size and appearance compared to 03/19/2018 (3.4 x 3.2 x 3.6 cm) and 03/19/2017 (3.8 x 3.0 x 3.7 cm). [facility], Rad In Fu ji Speechq - 04/09/2019 7:34 PM EDT EXAMINATION: US RENAL ONLY HISTORY: ORDERING SYSTEM PROVIDED HISTORY: Adrenal mass (HCC), TECHNOLOGIST PROVIDED HISTORY: Illness/Other Reason for exam: Recheck right adrenal mass Cancer History: unknown Surgery, RadiationHistory: unknown Encounter Type: Subsequent/Follow-up Additional signs and symptoms: no ORDERING SYSTEM PROVIDED DIAGNOSIS CODES: E27.9 Adrenal mass (HCC) COMPARISON: 03/19/2018 ultrasound and 02/21/2015 CT TECHNIQUE: Ultrasound of the kidneys. FINDINGS: Right kidney: Normal in size and echogenicity. Measures 10.2 x 4.1 x 5.2 cm. 1.4 cm cortical thickness.. Normal cortical medullary differentiation pattern. No hydronephrosis or renal calculus. Left kidney: Normal in size and echogenicity. Measures 10.7 x 5.1 x 4.6 cm. 1.4 cm cortical thickness.. Normal cortical medullary differentiation pattern. No hydronephrosis or renal calculus. Right adrenal: Mixed solid and cystic right adrenal mass with a few scattered coarse calcifications, measures 3.7 x 3.2 x 3.6 cm. Internal cystic component measures 1.6 x 1.1 x 1.5 cm. Overall findings are similar in size and appearance compared to 03/19/2018 (3.4 x 3.2 x 3.6 cm) and 03/19/2017 (3.8 x 3.0 x 3.7 cm). IMPRESSION: 1. Right adrenal mass measuring up to 3.7 cm, similar in size and appearance compared to 03/19/2018 and 03/19/2017 examinations. The ultrasound and prior CT characteristics suggest adrenal adenoma or myelolipoma. 2. No hydronephrosis or nephrolithiasis. [employer] Workstation ID: [id number] [facility] US RENAL RETROPERITONEALon 0 03-19-2018 US RENAL RETROPERITONEAL Final ReportAccession No: [id number] Performed: Mar 19 2018 9:29AMExamination: US RENAL RETROPERITONEALCLINICAL INFORMATION: Follow up right adrenal mass.COMPARISON STUDY: 03/19/2017.TECHNIQUE: Real-time renal loza scale and Color Doppler evaluation ofbilateralkidneys was performed.FINDINGS: The right kidney measures 10.8 x 5.5 x 6.0 cm and the izamemvhly76.5 x 5.3 x 6.1 cm in size.There is mild prominence of the right renal collecting system.Normal vascular, Color Doppler flow is identified bilaterally.No renal cysts or solid masses are identified.No calculi are present.Normal cortical thickness bilaterally.Urinary bladder within normal limits as visualized. No masses or calculi.Bilateral urinary jets are identified. Minimal postvoid residualmeasuring 21mL.There is a complex predominantly solid right suprarenal mass identifiedwithperipheral cystic change. It measures approximately 3.4 x 3.2 x 3.6 cm.Thishas not significantly changed in size since prior. The cystic componentis newsince the previous exam.IMPRESSION:1. Predominantly solid overall stable in size of right suprarenal masswhichnow demonstrates focal cystic degeneration peripherally.2. Mild right hydronephrosis. Findings are nonspecific in etiology andmay bedue to distal ureteral stricture or obstructing calculus amongst others.Clinical correlation recommended.3. No other significant abnormalities.Interpreting Physician: MATY BUTTS M.D.Trans: dcarr : cc: Normal [facility] Vital Signs Date Time Vital Sign Value Performing Clinician Josey lewis 05-25-2025 07:31-0400 Body height 167.[address] 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 MD Work Phone: [facility] 05-25-2025 07:31-0400 Body mass index (BMI) [Ratio] 33.4 kg/m2 Dr. 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 MD Work Phone: [facility] 05-25-2025 07:31-0400 Body temperature 97.4 [degF] Dr. 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 MD Work Phone: [facility] 05-25-2025 07:31-0400 Body weight 93.[address] 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 MD Work Phone: [facility] 05-25-2025 07:31-0400 Diastolic blood pressure 82 mm[Hg] Dr. 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 MD Work Phone: [facility] 05-25-2025 07:31-0400 Heart rate 67 /min Dr. 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 MD Work Phone: [facility] 05-25-2025 07:31-0400 Respiratory rate 18 /min Dr. 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 MD Work Phone: [facility] 05-25-2025 07:31-0400 SaO2% (BldA) [Mass fraction] 97 % Dr. 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 MD Work Phone: [facility] 05-25-2025 07:31-0400 Systolic blood pressure 165 mm[Hg] Dr. 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 MD Work Phone: [facility] 02-13-2025 09:49-0400 Body mass index (BMI) [Ratio] 33.23 kg/m2 Amada Trevino APRN.CNP Work Phone: [facility] 02-13-2025 09:49-0400 Body temperature 98.29 [degF] Amada Trevino APRN.CASING SPLITTER Work Phone: [facility] 02-13-2025 09:49-0400 Body weight 93.4 kg Amada Trevino CONCERT SINGER.CASING SPLITTER Work Phone: [facility] 02-13-2025 09:49-0400 Diastolic blood pressure 76 mm[Hg] Amada Trevino CONCERT SINGER.CASING SPLITTER Work Phone: [facility] 02-13-2025 09:49-0400 Heart rate 80 /min Amada Trevino CONCERT SINGER.CASING SPLITTER Work Phone: [facility] 02-13-2025 09:49-0400 Respiratory rate 16 /min Amada Trevino CONCERT SINGER.CASING SPLITTER Work Phone: [facility] 02-13-2025 09:49-0400 SaO2% (BldA) [Mass fraction] 97 % Amada Trevino CONCERT SINGER.CASING SPLITTER Work Phone: [facility] 02-13-2025 09:49-0400 Systolic blood pressure 122 mm[Hg] Amada Trevino CONCERT SINGER.CASING SPLITTER Work Phone: [facility] Encounters Encounter Date Encounter Type Care Provider Facility Start: 06-06-2025 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 Start: 05-25-2025 End: 05-25-[address] Apolinar Lenz [facility] Work Phone: Start: 05-25-2025 End: 05-25-[address] 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 MD Work Phone: -[facility] Start: 05-25-2025 End: 05-25-2025 ambulatory Apolinar Lenz Facility:[facility] Start: 04-11-2025 End: 04-11-[address] 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 MD Work Phone: [facility] Work Phone: Start: 04-11-2025 End: 04-11-2025 Patient encounter procedure Kenneth Meyer MULTIMEDIA INSTRUCTIONAL DESIGNER-C -[facility] Work Phone: Start: 04-11-2025 End: 04-11-2025 ambulatory Kenneth Meyer NP Facility:[facility] Start: 02-14-2025 End: 02-14-2025 Telephone encounter Amada Trevino DEVONTE.CASING SPLITTER Work Phone: [facility] Comment on above: [place] [facility] Start: 02-14-2025 End: 02-14-[address] 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 MD -[facility] [place] Work Phone: Start: 02-13-2025 End: 02-13-2025 Patient encounter procedure Amada King DEVONTE.CASING SPLITTER Work Phone: [facility] Comment on above: Lower resp. tract in fection (Primary Dx) Start: 02-13-2025 End: 02-14-2025 ambulatory CEDRICK ZAYAS Facility:[facility] Start: 10-08-2024 End: 10-08-2024 ambulatory 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 Facility:[facility] Start: 07-15-2024 End: 07-15-2024 ambulatory 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 Facility:[facility] Start: 07-02-2024 End: 07-02-2024 ambulatory 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 Facility:[facility] Start: 06-21-2024 End: 06-21-2024 ambulatory 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 Facility:[facility] Start: 01-06-2024 End: 01-06-2024 ambulatory [facility] Work Phone: Start: 01-06-2024 End: 01-06-2024 Patient encounter procedure [facility]-Radiology, [place] Work Phone: Start: 03-05-2023 End: 03-05-2023 ambulatory [facility] Work Phone: Start: 03-05-2023 End: 03-05-2023 Patient encounter procedure [facility]-Outpatient Breast Imaging Start: 12-02-2020 End: 12-02-2020 Orders Only Sharla Cuevas Work Phone: [facility] Start: 04-09-2019 End: 04-10-2019 Patient encounter procedure SAUNDRA RM [facility] Start: 04-09-2019 End: 04-09-2019 Patient encounter procedure Saundra Corral Work Phone: [facility] Ultrasound Comment on above: Adrenal mass (HCC) Start: 03-19-2018 Ambulatory Saundra Corral Facility: [place] Start: 03-19-2018 End: 03-19-2018 Ambulatory Saundra Corral Work Phone: [facility] Procedures Date Procedure Procedure Detail Performing Clinician Start: 05-25-2025 Alternaria alternata DANNIELLE Zayas MD Work Phone: Start: 05-25-2025 Uzbek cockroach DANNIELLE Zayas MD Work Phone: Start: 05-25-2025 Box elder DANNIELLE Zayas MD Work Phone: Start: 05-25-2025 Cat dander DANNIELLE Zayas MD Work Phone: Start: 05-25-2025 [place] DANNIELLE Zayas MD Work Phone: Start: 05-25-[address] 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 MD Work Phone: Start: 05-25-2025 Common silver birch RASTanesha Zayas MD Work Phone: Start: 05-25-2025 House dust mite (Df) RAST Dr. 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 MD Work Phone: Start: 05-25-2025 Mouse urine proteins RAST Dr. 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 MD Work Phone: Start: 05-25-2025 Pecan nut RASTanesha Zayas MD Work Phone: Start: 05-25-2025 Penicillium chrysogenum DANNIELLE Zayas MD Work Phone: Start: 05-25-2025 [place] thistle RASTanesha Zayas MD Work Phone: Start: 05-25-2025 Tree pollen DANNIELLE Zayas MD Work Phone: Start: 05-25-2025 [place] pollen DANNIELLE Zayas MD Work Phone: Start: 02-14-2025 X-ray of chest, PA a nd lateral views Dr. 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 MD Work Phone: Start: 01-06-2024 Radiography of ankle Start: 03-05-2023 Screening mammography Start: 04-09-2019 Us retroperitoneal r eal time w/image limited External Transcribed Plan of Treatment Date Care Activity Detail Author Start: 06-06-2025 Measurement of respiratory function [facility] Start: 10-27-2024 Advance Directive Discussion Advance Directive Discussion [facility] Start: 06-27-2024 Covid-19 Vaccine ( season) Covid-19 Vaccine ( season) [facility] Start: 06-27-2024 Influenza vaccination [facility] Start: 05-25-2024 Urine microalbumin profile DTaP,Tdap,Td Vaccine (2 - Td or Tdap) [facility] Start: 2022 RSV Vaccine (1 - 1-dose 75+ series) RSV Vaccine (1 - 1-dose 75+ series) [facility] Start: 06-27-2020 Influenza vaccination given Sequential Influenza Vaccine (#1) [facility] Start: 06-27-2019 Influenza vaccination given SEQUENTIAL INFLUENZA VACCINE (Season Ended) [facility] Start: 2012 Pneumococcal vaccination PNEUMOCOCCAL VACCINE AGE 65+ (1 of 2 - PCV13) [facility] Start: 09-26-2009 Diabetes Screening Diabetes Screening [facility] Start: 1997 Administration of herpes zoster vaccine Zoster Vaccines (1 of 2) [facility] Start: 1997 Screening for malignant neoplasm of colon [facility] Start: 1997 Shingrix Vaccine (1 of 2) Shingrix Vaccine (1 of 2) [facility] Start: 1965 Anxiety Screening Anxiety Screening [facility] Start: 1965 Depression Screening Depression Screening [facility] Start: 1965 Hepatitis C antibody, confirmatory test Hepatitis C Screening [facility] Start: 1965 Hepatitis C screening Hepatitis C Screening [facility] Start: 1963 COVID-19 Vaccine (1 of 2) COVID-19 Vaccine (1 of 2) [facility] Start: 1959 Adolescent depression screening assessment Depression Screening (PHQ9) [facility] Start: 1950 History and physical examination, annual for health maintenance Wellness Visit [facility] Start: 1947 Fall risk assessment Falls Risk Assessment [facility] Start: 1947 Hepatitis C antibody, confirmatory test HEPATITIS C SCREENING [facility] Start: 1947 Protein mass conc Mammogram [facility] Start: 1947 Screening for malignant neoplasm of colon Colorectal Cancer Screening: Colonoscopy [facility] Start: 1947 Screening for osteoporosis Dexa Scan [facility] Start: 1947 Screening mammography Mammogram [facility] Start: 1947 Tetanus vaccination [facility] CBC W Auto Different ial panel - Blood [facility] IgE [Units/volume] i n Serum or Plasma [facility] Measurement of respiratory function [facility] Immunizations Immunization Date Immunization Notes Care Provider Fa kendall 09-18-2021 influenza virus vacc ine, unspecified formulation Amada Trevino CONCERT SINGER.CASING SPLITTER Work Phone: [facility] Payers Date Payer Category Payer Self-pay [id number] 2015 Private Health Insurance HUMANA HUMANA OTHER AFTER MEDICARE xxxxxxxxx 2015-Present xxxxxxxxx [id number] 2015 Private Health Insurance HUMANA HUMANA OTHER AFTER MEDICARE [id number] 2015-Present [id number] 2015 Private Health Insurance HUMANA [id number] 2015 Private Health Insurance [id number] 2012 Medicare MEDICARE MEDICAR E PART A & B xxxxxxxxxxx 2012-Present [place] xxxxxxxxxxx [id number] 2012 Medicare MEDICARE MEDICAR E PART A & B [id number] 2012-Present [place] [id number] 2012 Medicare MEDICARE [id number] 2012 Medicare [id number] 1945 Unknown [id number] Medicare [id number] Unknown [id number] Unknown [id number] Unknown [id number] Unknown [id number] Unknown [id number] Unknown [id number] Unknown [id number] Unknown [id number] Unknown [id number] Social History Date Type Detail Facility Tobacco smoking stat [facility] Unknown if ever smoked [facility] Start: 1945 Sex Assigned At Not on file [facility] Start: 09-01-2022 Tobacco smoking stat [facility] Unknown if ever smoked [facility] Start: 1945 Sex Assigned At Female [facility] Start: 07-22-2019 End: 05-25-2025 Tobacco smoking status NHIS Ex-smoker [facility] Start: 07-22-1969 End: 07-22-1989 History of tobacco use Current smoker [facility] Start: 07-22-1969 End: 07-22-1989 History of tobacco use Cigarette Smoker [facility] Start: 07-22-2019 End: 10-01-2020 Cigarettes smoked current (pack per day) - Reported 1 [facility] Start: 07-22-2019 Tobacco use and exposure Smokeless tobacco non-user [facility] Start: 07-22-2019 Alcoholic beverage intake Ex-drinker (finding) [facility] Start: 07-22-2019 End: 10-01-2020 Tobacco use panel [facility] National Score (1-10 0), lower number is lower risk Not on file [facility] Evaluation note 05-25-2025 Note Date & Type Note Facility 05-25-2025 Evaluation note Diagnosis Onset Date Resolution Cough resolved May 25 10:34am [facility] Work Phone: Telephone encounter Note 02-14-2025 Telephone Encounter - Kayla Mon LPN - 02/14/2025 11:24 AM EDT Note Date & Type Note Facility 02-14-2025 Telephone encount er Note [facility] calling asking if patient had chest xray yesterday with her express care visit. Advised radiology closed on Friday. Requested copy of office notes be faxed to [phone], so they can decide if patient needs xray done. Printed and faxed as requested. [facility] Note 02-14-2025 Telephone Encounter - Kayla Mon LPN - 02/14/2025 11:24 AM EDT Note Date & Type Note Facility 02-14-2025 Miscellaneous Notes Formattin g of this note might be different from the original. [facility] office calling asking if patient had chest xray yesterday with her express care visit. Advised radiology closed on Friday. Requested copy of office notes be faxed to [phone], so they can decide if patient needs xray done. Printed and faxed as requested. documented in this encounter [facility] Progress note 02-13-2025 Note Date & Type Note Facility 02-13-2025 Note HNO ID: [id number] Author: AMADA TREVINO APRN.CASING SPLITTER Service: ? Author Type: Nurse Practitioner Type: Progress Notes Filed: 02/13/2025 10:42 Note Text: [facility] Subjective HPI HPI Mauri Concepcion is a 79 year old female who presents today for CC of sinus pressure, cough. This started 4 days ago/worsening. Has tried otc medication for relief. Symptoms are worsened by nothing. Nonsmoker. Denies asthma. 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 MEDICATIONS vitamin E mixed/tocotrienol (VITAMIN E COMPLEX ORAL) Take by mouth once daily. (Patient not taking: Reported on 02/13/2025) ascorbic acid (VITAMIN C ORAL) Take by mouth once daily. (Patient not taking: Reported on 02/13/2025) CALCIUM CARBONATE/VITAMIN D3 (CALCIUM 600 + D ORAL) Take 1 tablet by mouth once daily. (Patient not taking: Reported on 02/13/2025) PREVACID 30 MG CAP Take one(1) capsule twice daily. DAILY MULTIVITAMIN TAB Take one(1) tablet daily. (Patient not taking: Reported on 02/13/2025) FAMILY HISTORY Problem Relation Age of Onset Cancer Father throat Breast Cancer Paternal Grandmother other (lymphoma) Mother Social History Tobacco Use Smoking status: Former Current packs/day: 0.00 Average packs/day: 1 pack/day for 20.0 years (20.0 ttl pk-yrs) Types: Cigarettes Start date: 07/22/1969 Quit date: 07/22/1989 Years since quittin.5 Smokeless tobacco: Never Substance Use Topics Alcohol use: Not Currently Drug use: No Review of Systems Constitutional: Negative for chills, fatigue and fever. HENT: Positive for rhinorrhea. Negative for ear discharge, ear pain, sinus pressure, sinus pain and sore throat. Eyes: Negative for discharge and redness. Respiratory: Positive for cough. Negative for shortness of breath and wheezing. Cardiovascular: Negative for chest pain. Skin: Negative for rash. Objective BP 122/76 Pulse 80 Temp 36.8 ?C (98.3 ?F) Resp 16 Wt 93.4 kg (205 lb 14.6 oz) SpO2 97% BMI 33.23 kg/m? Physical Exam Constitutional: General: She is not in acute distress. Appearance: She is not toxic-appearing or diaphoretic. HENT: Head: Normocephalic and atraumatic. Cardiovascular: Rate and Rhythm: Normal rate and regular rhythm. Heart sounds: Normal heart sounds, S1 normal and S2 normal. Pulmonary: Effort: Pulmonary effort is normal. Breath sounds: Examination of the left-lower field reveals rales. Rales present. No decreased breath sounds, wheezing or rhonchi. Neurological: Mental Status: She is alert and oriented to person, place, and time. {ASSESSMENT/PLAN: 1. Lower resp. tract infection - ICD9: 519.8, ICD10: J22 No xray at time of exam Exam findings concerns for possible pneumonia - Discussed supportive care - Limit exposure to smoke and other inhaled irritants - Discussed possible red flags and when to seek medical attention - Follow up in 3-5 days or sooner if no better or worse -If you experience chest pain/shortness of breath go to ER - DOXYCYCLINE MONOHYDRATE 100 MG TABLET - BENZONATATE 100 MG CAPSULE Amada Trevino APRN.ADAIR Differential Diagnoses - pneumonia is more likely for the following reason(s): exam findings Additional Tests or Interventions The following testing was considered but ultimately not selected after discussion with patient/family: chest xray, not available today. Disposition The patient was discharged. Procedures [facility] History of Present illness Narrative 02-13-2025 Amada Trevino APRN.CNP - 02/13/2025 9:51 AM EDT Note Date & Type Note Facility 02-13-2025 History of Presen t illness Narrative [facility] Subjective HPI HPI Mauri Concepcion is a 79 year old female who presents today for CC of sinus pressure, cough. This started 4 days ago/worsening. Has tried otc medication for relief. Symptoms are worsened by nothing. Nonsmoker. Denies asthma. 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 MEDICATIONS vitamin E mixed/tocotrienol (VITAMIN E COMPLEX ORAL) Take by mouth once daily. (Patient not taking: Reported on 02/13/2025) ascorbic acid (VITAMIN C ORAL) Take by mouth once daily. (Patient not taking: Reported on 02/13/2025) CALCIUM CARBONATE/VITAMIN D3 (CALCIUM 600 + D ORAL) Take 1 tablet by mouth once daily. (Patient not taking: Reported on 02/13/2025) PREVACID 30 MG CAP Take one(1) capsule twice daily. DAILY MULTIVITAMIN TAB Take one(1) tablet daily. (Patient not taking: Reported on 02/13/2025) FAMILY HISTORY Problem Relation Age of Onset Cancer Father throat Breast Cancer Paternal Grandmother other (lymphoma) Mother Social History Tobacco Use Smoking status: Former Current packs/day: 0.00 Average packs/day: 1 pack/day for 20.0 years (20.0 ttl pk-yrs) Types: Cigarettes Start date: 07/22/1969 Quit date: 07/22/1989 Years since quittin.5 Smokeless tobacco: Never Substance Use Topics Alcohol use: Not Currently Drug use: No Review of Systems Constitutional: Negative for chills, fatigue and fever. HENT: Positive for rhinorrhea. Negative for ear discharge, ear pain, sinus pressure, sinus pain and sore throat. Eyes: Negative for discharge and redness. Respiratory: Positive for cough. Negative for shortness of breath and wheezing. Cardiovascular: Negative for chest pain. Skin: Negative for rash. Objective BP 122/76 Pulse 80 Temp 36.8 C (98.3 F) Resp 16 Wt 93.4 kg (205 lb 14.6 oz) SpO2 97% BMI 33.23 kg/m Physical Exam Constitutional: General: She is not in acute distress. Appearance: She is not toxic-appearing or diaphoretic. HENT: Head: Normocephalic and atraumatic. Cardiovascular: Rate and Rhythm: Normal rate and regular rhythm. Heart sounds: Normal heart sounds, S1 normal and S2 normal. Pulmonary: Effort: Pulmonary effort is normal. Breath sounds: Examination of the left-lower field reveals rales. Rales present. No decreased breath sounds, wheezing or rhonchi. Neurological: Mental Status: She is alert and oriented to person, place, and time. {ASSESSMENT/PLAN: 1. Lower resp. tract infection - ICD9: 519.8, ICD10: J22 No xray at time of exam Exam findings concerns for possible pneumonia - Discussed supportive care - Limit exposure to smoke and other inhaled irritants - Discussed possible red flags and when to seek medical attention - Follow up in 3-5 days or sooner if no better or worse -If you experience chest pain/shortness of breath go to ER - DOXYCYCLINE MONOHYDRATE 100 MG TABLET - BENZONATATE 100 MG CAPSULE Amada Trevino APRN.CNP Differential Diagnoses - pneumonia is more likely for the following reason(s): exam findings Additional Tests or Interventions The following testing was considered but ultimately not selected after discussion with patient/family: chest xray, not available today. Disposition The patient was discharged. Procedures documented in this encounter [facility] Evaluation note Note Date & Type Note Facility Evaluation note No assessment information availa ble [facility] Work Phone: Evaluation note Note Date & Type Note Facility Evaluation note Diagnosis Lower resp. tract infection- Primary Other diseases of respiratory system, not elsewhere classified documented in this encounter [facility] Evaluation note Note Date & Type Note Facility Evaluation note Diagnosis Onset Date Resolution Cough acute May 25 10:34am [facility] Work Phone: Reason for referral (narrative) Note Date & Type Note Facility Reason for referral (narrative) No reason for referral information available [facility] Work Phone: Summary Purpose Family History No Family History Records Found Relationship Condition Age at Onset Recorded Date/T caleb Not Specified Malignant neoplasm Unknown Relationship Condition Age at Onset Recorded Date/T caleb mother Malignant neoplasm Unknown father Malignant neoplasm Unknown brother Malignant neoplasm Unknown sister Malignant neoplasm Unknown Advance Directives No Advanced Directives Records FoundDocuments on File Type Date Recorded Patient Intermediate Frame Tender Expl anation Advance Directives and Livin g Will 04/09/2019 7:22 AM Documents on File Type Date Recorded Patient Intermediate Frame Tender Expl anation Advance Directives and Livin g Will 04/09/2019 7:22 AM Advance Directive Response Recorded Date/ Time Living Will No July 02 019 12:35pm Power of Translational Specialist No July 02, 2019 12:35pm Reason for Referral Status Reason Specialty Diagnoses / Procedures Referred By Contact Referred To Contact Pending Review Radiology Diagnoses Adrenal mass (HCC) Procedures US Renal Only Saundra Corral MD [address] [place] [address] Assessments Diagnosis Adrenal mass (HCC) Unspecified disorder of adrenal glands Chief Complaint and Reason for Visit Chief Complaint SCREENING Chief Complaint RIGHT ANKLE STRAIN Chief Complaint Admit Date EORDER- CXR February 14, 2025 1:1 6pm EORDERS April 11, 2025 3:57 pm Chief Complaint Admit Date EORDER- CXR February 14, 2025 1:1 6pm EORDERS April 11, 2025 3:57 pm Cough May 25, 2025 10:3 4am Reason for Visit Admit Date Cough May 25, 2025 10:3 4am Additional Source Comments INFORMATION SOURCE (unrecogn ized section and content) DATE CREATED AUTHOR 04/15/2018 [facility] DATE CREATED AUTHOR AUTHOR'S ORGANIZ ATION 04/10/2019 [facility] DATE CREATED AUTHOR AUTHOR'S ORGANIZ ATION 03/02/2025 [facility] DATE CREATED AUTHOR AUTHOR'S ORGANIZ ATION 06/04/2025 [facility] Reason for Visit (unrecogniz ed section and content) Status Reason Specialty Diagnoses / Procedures Referred By Contact Referred To Contact Pending Review Radiology Diagnoses Adrenal mass (HCC) Procedures US Renal Only Saundra Corral MD [address] [place], [place] [id number] Reason Comments Sinus Problem sinus pressure, drai nage, chest congestion, cough x 3-4 days Reason Comments [facility] Care Teams (unrecognized sec tion and content) Team Status: Active Member Role Status Dates Dr. Demetrius Zayas MD Family Provider Active Dr. Demetrius Zayas MD Primary Care Provider Activ e Team Status: Inactive Member Role Status Dates Dr. Demertius Zayas MD Primary Care Provider, Attending Provider, Referring Provider Active Team Status: Inactive Member Role Status Dates Dr. Demetrius Zayas MD Primary Care Provider Activ e Dr. Chas To MD Attending Provider, Referring Prov ider Active Fishing Rod Trimmer Relationship Specialty Start Date End Date 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 MD [address] [place] [id number] PCP - General Family Medicine 02/13/25 Fishing Rod Trimmer Relationship Specialty Start Date End Date 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 MD [address] [place] [address] PCP - General Family Medicine 02/13/25 Team Status: Active Member Role Status Dates Dr. 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 MD Family Provider Active Dr. 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 MD Primary Care Provider Acti ve Team Status: Inactive Member Role Status Dates Dr. 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 MD Primary Care Provider Acti ve Start: February 14, 2025 End: February 14, 2025 Dr. 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 MD Attending Provider Active Start: February 14, 2025 End: February 14, 2025 Dr. 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 MD Referring Provider Active Start: February 14, 2025 End: February 14, 2025 Team Status: Inactive Member Role Status Dates Dr. 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 MD Primary Care Provider Acti ve Start: April 11, 2025 End: April 11, 2025 Kenneth Meyer MULTIMEDIA INSTRUCTIONAL DESIGNER, MULTIMEDIA INSTRUCTIONAL DESIGNER-C Attending Provider Active Start: April 11, 2025 End: April 11, 2025 Kenneth Meyer MULTIMEDIA INSTRUCTIONAL DESIGNER, MULTIMEDIA INSTRUCTIONAL DESIGNER-C Referring Provider Active Start: April 11, 2025 End: April 11, 2025 Team Status: Active Member Role/Relationship Status Dates Dr. 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 MD Family Provider Active Dr. 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 MD Primary Care Provider Acti ve Team Status: Inactive Member Role/Relationship Status Dates Dr. 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 MD Primary Care Provider Acti ve Start: February 14, 2025 End: February 14, 2025 Dr. 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 MD Attending Provider Active Start: February 14, 2025 End: February 14, 2025 Dr. 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 MD Referring Provider Active Start: February 14, 2025 End: February 14, 2025 Team Status: Inactive Member Role/Relationship Status Dates Dr. 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 MD Primary Care Provider Acti ve Start: April 11, 2025 End: April 11, 2025 Kenneth Meyer MULTIMEDIA INSTRUCTIONAL DESIGNER, MULTIMEDIA INSTRUCTIONAL DESIGNER-C Attending Provider Active Start: April 11, 2025 End: April 11, 2025 Kenneth Meyer MULTIMEDIA INSTRUCTIONAL DESIGNER, MULTIMEDIA INSTRUCTIONAL DESIGNER-C Referring Provider Active Start: April 11, 2025 End: April 11, 2025 Team Status: Inactive Member Role/Relationship Status Dates Dr. 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 MD Primary Care Provider Acti ve Start: May 25, 2025 End: May 25, 2025 Dr. 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 MD Referring Provider Active Start: May 25, 2025 End: May 25, 2025 Dr. Apolinar Lenz , Attending Provider Active S tart: May 25, 2025 End: May 25, 2025 Team Status: Active Member Role/Relationship Status Dates Dr. 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 MD Primary Care Provider Acti ve Team Status: Inactive Member Role/Relationship Status Dates Dr. 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 MD Primary Care Provider Acti ve Start: May 25, 2025 End: May 25, 2025 Dr. Apolinar Lenz DO Attending Provider Active S tart: May 25, 2025 End: May 25, 2025 Dr. Apolinar Lenz DO Referring Provider Active S tart: May 25, 2025 End: May 25, 2025 Goals (unrecognized section and content) Goals may be documented in a n alternate sectionGoals may be documented in an alternate sectionGoals may be documented in an alternate sectionGoals may be documented in an alternate sectionGoals may be documented in an alternate section Source Comments (unrecognize d section and content) In the event this informatio n is protected by the Federal Confidentiality of Alcohol and Drug Abuse Patient Records regulations: The Federal rules restrict any use of the information to criminally investigate or prosecute any alcohol or drug abuse patient.[facility] the event this information is protected by the Federal Confidentiality of Alcohol and Drug Abuse Patient Records regulations: The Federal rules restrict any use of the information to criminally investigate or prosecute any alcohol or drug abuse patient.[facility] FOR RECORDS PERTAINING TO PATIENTS WHO ARE [...] BE BASED ON THE PRIMARY CLINICAL RECORDS. [facility] [employer] [facility]. provides no warranty or guarantee of the accuracy or completeness of information in this document.
--- OUTSIDE RECORDS SUMMARY | 2025-06-06 06:31 | XMS RPT_ITS | CCD ---
Author Organization [facility] Care Team Providers Care Biomedical Equipment Tech Name Role Phone Unavailable Unavailable Unavailable Saundra [...] Provider Dr. 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 MD Attending Provider [phone] Dr. 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 MD Referring Provider [phone] Cheorrmarissa AIR PURIFIER SERVICER-CKenneth Attending Provider Betsy AIR PURIFIER SERVICER-CKenneth Referring Provider Dr. Apolinar Lenz DO Attending Provider Dr. Apolinar Lenz DO Referring Provider 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 Primary Care Unavailable Molina Giles Attending Unavailable 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 Referring Unavailable 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 Referring Unavailable 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 Primary Care Unavailable Molina Giles Attending Unavailable Apolinar Lenz Attending Unavailable 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 Primary Care Unavailable 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 Referring Unavailable Cheorrow Kenneth SAMPSON Attending Unavailable N[place]um[place] AIR PURIFIER SERVICERKenneth Referring Unavailable 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 Primary Care Unavailable [...] Drug Class(es) Dates Sig (Normalized) Sig (Original) [id number] 200 actuat albuterol 0.09 mg/actuat metered dose [...] 5on ALTERNARIA TEN <0.10 [address] [facility] Comment on above: Order Comment: Reaso n for Exam: Asthma Performed By: #### L 3200.1600, L100.0100, L5500.0700 ####[facility] [address] [place], [address] LUCAS, WHITE <0.10 Normal Class [address] [facility] Comment on above: Order Comment: Reaso n for Exam: Asthma Performed By: #### L 3200.1600, L100.0100, L5500.0700 ####[facility] [address] [place], [address] ASPERGILLUS FUM <0.10 Normal Class [address] [facility] Comment on above: Order Comment: Reaso n for Exam: Asthma Performed By: #### L 3200.1600, L100.0100, L5500.0700 ####[facility] [address] [place], [address] BERMUDA GRASS <0.10 Normal Class [address] [facility] Comment on above: Order Comment: Reaso n for Exam: Asthma Performed By: #### L 3200.1600, L100.0100, L5500.0700 ####[facility] [address] [place], [address] BIRCH <0.10 Normal Class [address] [facility] Comment on above: Order Comment: Reaso n for Exam: Asthma Performed By: #### L 3200.1600, L100.0100, L5500.0700 ####[facility] [address] [place], [address] BLACK WALNUT <0.10 Normal Class [address] [facility] Comment on above: Order Comment: Reaso n for Exam: Asthma Performed By: #### L 3200.1600, L100.0100, L5500.0700 ####[facility] [address] [facility] [address] CAT HAIR/DANDER <0.10 Normal Class [address] [facility] Comment on above: Order Comment: Reaso n for Exam: Asthma Performed By: #### L 3200.1600, L100.0100, L5500.0700 ####[facility] [address] [place] [address] CLADOSPOR HERB <0.10 Normal Class [address] [facility] Comment on above: Order Comment: Reaso n for Exam: Asthma Performed By: #### L 3200.1600, L100.0100, L5500.0700 ####[facility] [address] [place], [place], [phone] COCKROACH,AMER <0.10 Normal Class [address] [facility] Comment on above: Order Comment: Reaso n for Exam: Asthma Performed By: #### L 3200.1600, L100.0100, L5500.0700 ####[facility] [address] [place], [address] COMMENT Comment Normal . [facility] Comment on above: Order Comment: Reaso n [...] Performed By: #### L 3200.1600, L100.0100, L5500.0700 ####[facility] [address] [place], [address] COTTONWOOD <0.10 Normal Class [address] [facility] Comment on above: Order Comment: Reaso n for Exam: Asthma Performed By: #### L 3200.1600, L100.0100, L5500.0700 ####[facility] [address] [place], [address] D FARINAE MITE <0.10 Normal Class [address] [facility] Comment on above: Order Comment: Reaso n for Exam: Asthma Performed By: #### L 3200.1600, L100.0100, L5500.0700 ####[facility] [address] [place], [address] D PTERONYSSINUS <0.10 Normal Class [address] [facility] Comment on above: Order Comment: Reaso n for Exam: Asthma Performed By: #### L 3200.1600, L100.0100, L5500.0700 ####[facility] [address] [place], [address] DOG EPITHELIA <0.10 Normal Class [address] [facility] Comment on above: Order Comment: Reaso n for Exam: Asthma Performed By: #### L 3200.1600, L100.0100, L5500.0700 ####[facility] [address] [place], [address] ELM,AMER WHITE <0.10 Normal Class [address] [facility] Comment on above: Order Comment: Reaso n for Exam: Asthma Performed By: #### L 3200.1600, L100.0100, L5500.0700 ####[facility] [address] [place], [address] IMMUNOGLOB E 18 IU/mL Normal 6-[address] [facility] Comment on above: Order Comment: Reaso n for Exam: Asthma Performed By: #### L 3200.1600, L100.0100, L5500.0700 ####[facility] [address] [place], [address] MAPLE/BOX ELDER <0.10 Normal Class [address] [facility] Comment on above: Order Comment: Reaso n for Exam: Asthma Performed By: #### L 3200.1600, L100.0100, L5500.0700 ####[facility] [address] [place], [address] MOUNTAIN CEDAR <0.10 Normal Class [address] [facility] Comment on above: Order Comment: Reaso n for Exam: Asthma Performed By: #### L 3200.1600, L100.0100, L5500.0700 ####[facility] [address] [place], [address] Mouse Urine <0.10 Normal Class [address] [facility] Comment on above: Order Comment: Reaso n for Exam: Asthma Performed By: #### L 3200.1600, L100.0100, L5500.0700 ####[facility] [address] [place], [address] MULBERRY,WHITE <0.10 Normal Class [address] [facility] Comment on above: Order Comment: Reaso n for Exam: Asthma Performed By: #### L 3200.1600, L100.0100, L5500.0700 ####[facility] [address] [place], [address] OAK, WHITE <0.10 Normal Class [address] [facility] Comment on above: Order Comment: Reaso n for Exam: Asthma Performed By: #### L 3200.1600, L100.0100, L5500.0700 ####[facility] [address] [place], [address] PECAN <0.10 Normal Class [address] [facility] Comment on above: Order Comment: Reaso n for Exam: Asthma Performed By: #### L 3200.1600, L100.0100, L5500.0700 ####[facility] [address] [place], [address] PEN NOTATUM <0.10 Normal Class [address] [facility] Comment on above: Order Comment: Reaso n for Exam: Asthma Performed By: #### L 3200.1600, L100.0100, L5500.0700 ####[facility] [address] [place], [address] PIGWEED, ROUGH <0.10 Normal Class [address] [facility] Comment on above: Order Comment: Reaso n for Exam: Asthma Performed By: #### L 3200.1600, L100.0100, L5500.0700 ####[facility] [address] [place], [address] RAGWEED SH/COM <0.10 Normal Class [address] [facility] Comment on above: Order Comment: Reaso n for Exam: Asthma Performed By: #### L 3200.1600, L100.0100, L5500.0700 ####[facility] [address] [place], [address] LIBERIAN THISTLE <0.10 Normal Class [address] [facility] Comment on above: Order Comment: Reaso n for Exam: Asthma Performed By: #### L 3200.1600, L100.0100, L5500.0700 ####[facility] [address] [place], [address] SHEEP SORREL <0.10 Normal Class [address] [facility] Comment on above: Order Comment: Reaso n for Exam: Asthma Result Comment: Perf ormed at: - [facility] [id number] Optometric Aide: Laura Vallejo MD, Phone: [phone] Performed By: #### L 3200.1600, L100.0100, L5500.0700 ####[facility] [address] [place], [place], [address] SYCAMORE, AMER <0.10 Normal Class [address] [facility] Comment on above: Order Comment: Reaso n for Exam: Asthma Performed By: #### L 3200.1600, L100.0100, L5500.0700 ####[facility] [address] [place], [address] KENAN GRASS <0.10 Normal Class [address] [facility] Comment on above: Order Comment: Reaso n for Exam: Asthma Performed By: #### L 3200.1600, L100.0100, L5500.0700 ####[facility] [address] [place], [place], [id number] Immunoglobulin Crispin 5 IMMUNOGLOB E QN 16 IU/mL Normal 6-[address] [facility] Comment on above: Result Comment: Perf ormed at: [facility] [address] [id number] Optometric Aide: Laura Vallejo MD, Phone: [phone] Performed By: #### L 3200.1600, L100.0100, L5500.0700 ####[facility] [address] [place], [place], [id number] Absolute lymphocyte countOrd ered By: Apolinar Lenz on 05-25-2025 Lymphocytes Auto (Unsp spec) [#/Vol] 1.89 10*3/uL 0.83-4.[address] [facility] Absolute neutrophil countOrd ered By: Apolinar Lenz on 05-25-2025 Neutrophils (Bld) [#/Vol] 3.7 10*3/uL 2.0-7.[address] [facility] Automated lymphocyte count a s percentage of total leukocytesOrdered By: Apolinar Lenz on 05-25-2025 Lymphocytes/100 WBC Auto (Unsp spec) 27.7 % 19-[address] [facility] Basophil percentageOrdered B y: Apolinar Lenz on 05-25-2025 Basophils/100 WBC (Bld) 1.2 % High 0-[address] [facility] CBC W/Diff, Automatedon 04-28-2024 Absolute Lymph 1.89 X10 3/uL Normal 0.83-4.[address] [facility] Comment on above: Performed By: #### L 3200.1600, L100.0100, L5500.0700 ####[facility] [address] [place], [address] Absolute Neut 3.7 X10 3/uL Normal 2.0-7.[address] [facility] Comment on above: Performed By: #### L 3200.1600, L100.0100, L5500.0700 ####[facility] [address] [place], [address] Basophils/100 WBC (Bld) 1.2 % High 0-[address] [facility] Comment on above: Performed By: #### L 3200.1600, L100.0100, L5500.0700 ####[facility] [address] [place], [address] Eosinophils/100 WBC (Bld) 3.8 % Normal 0-[address] [facility] Comment on above: Performed By: #### L 3200.1600, L100.0100, L5500.0700 ####[facility] [address] [place], [address] Erythrocyte distribution width (RBC) [Ratio] 13.2 % Normal 11.6-14.[address] [facility] Comment on above: Performed By: #### L 3200.1600, L100.0100, L5500.0700 ####[facility] [address] [place], [address] Hematocrit (Bld) [Volume fraction] 42.7 % Normal 37-[address] [facility] Comment on above: Performed By: #### L 3200.1600, L100.0100, L5500.0700 ####[facility] [address] [place], [address] Hemoglobin (Bld) [Mass/Vol] 14.0 g/dL Normal 12.0-15.[address] [facility] Comment on above: Performed By: #### L 3200.1600, L100.0100, L5500.0700 ####[facility] [address] [place], [address] IG% 0.300 Normal 0.0-0.[address] [facility] Comment on above: Result Comment: IG% - Immature Granulocytes (promyelocytes, myelocytes and metamyelocytes) > 1% indicates that a LEFT SHIFT is Present. Performed By: #### L 3200.1600, L100.0100, L5500.0700 ####[facility] [address] [place], [address] Lymphocytes/100 WBC (Bld) 27.7 % Normal 19-[address] [facility] Comment on above: Performed By: #### L 3200.1600, L100.0100, L5500.0700 ####[facility] [address] [place], [address] MCH (RBC) [Entitic mass] 29.6 pg Normal 27.0-32.[address] [facility] Comment on above: Performed By: #### L 3200.1600, L100.0100, L5500.0700 ####[facility] [address] [place], [address] MCHC (RBC) [Mass/Vol] 32.8 g/dL Normal 32-36 [facility] Comment on above: Performed By: #### L 3200.1600, L100.0100, L5500.0700 ####[facility] [address] [place], [address] MCV (RBC) [Entitic vol] 90.3 fL Normal 81-[address] [facility] Comment on above: Performed By: #### L 3200.1600, L100.0100, L5500.0700 ####[facility] [address] [place], [address] Monocytes/100 WBC (Bld) 13.0 % High 0-[address] [facility] Comment on above: Performed By: #### L 3200.1600, L100.0100, L5500.0700 ####[facility] [address] [place], [address] Neutrophils/100 WBC (Bld) 54.0 % Normal 47-[address] [facility] Comment on above: Performed By: #### L 3200.1600, L100.0100, L5500.0700 ####[facility] [address] [place], [address] Nucleated RBC (Bld) [#/Vol] 0 10*3/uL Normal 0-[address] [facility] Comment on above: Performed By: #### L 3200.1600, L100.0100, L5500.0700 ####[facility] [address] [place], [address] Platelet mean volume (Bld) [Entitic vol] 10.2 fL Normal 6.2-12.[address] [facility] Comment on above: Performed By: #### L 3200.1600, L100.0100, L5500.0700 ####[facility] [address] [place], [address] Platelets (Bld) [#/Vol] 413 10*3/uL Normal 150-[address] [facility] Comment on above: Performed By: #### L 3200.1600, L100.0100, L5500.0700 ####[facility] [address] [place], [address] RBC (Bld) [#/Vol] 4.73 10*6/uL Normal 4.2-5.4 [facility] Comment on above: Performed By: #### L 3200.1600, L100.0100, L5500.0700 ####[facility] [address] [place], [address] RDW SD 43.8 fl Normal 35.1-43.[address] [facility] Comment on above: Performed By: #### L 3200.1600, L100.0100, L5500.0700 ####[facility] [address] [place], [address] WBC (Bld) [#/Vol] 6.8 10*3/uL Normal 4.4-11.0 [facility] Comment on above: Performed By: #### L 3200.1600, L100.0100, L5500.0700 ####[facility] [address] [place], [address] Eosinophil percentageOrdered By: Apolinar Lenz on 05-25-2025 Eosinophils/100 WBC (Bld) 3.8 % 0-[address] [facility] Erythrocyte distribution wid th ratioOrdered By: Apolinar Lenz on 05-25-2025 Erythrocyte distribution width (RBC) [Ratio] 13.2 % 11.6-14.[address] [facility] Erythrocyte distribution wid th standard deviationOrdered By: Apolinar Lenz on 05-25-2025 Erythrocyte distribution width (RBC) [Ratio] 43.8 fl 35.1-43.[address] [facility] Hematocrit Auto (Bld) [Volum e fraction]Ordered By: Apolinar Lenz on 05-25-2025 Hematocrit (Bld) [Volume fraction] 42.7 % 37-[address] [facility] Hemoglobin measurementOrdere d By: Apolinar Lenz on 05-25-2025 Hemoglobin (Bld) [Mass/Vol] 14.0 g/dL 12.0-15.[address] [facility] IgEOrdered By: Apolinar Lenz o n 05-25-2025 IgE 16 IU/mL 6-[address] [facility] Comment on above: Performed at: [facility] [address] [id number] Director: Laura Vallejo MD, Phone: [phone] Immature granulocytes/100 WB C Auto (Bld)Ordered By: Apolinar Lenz on 05-25-2025 Immature granulocytes/100 WBC (Bld) 0.300 % 0.0-0.[address] [facility] Comment on above: IG% - Immature Granu locytes (promyelocytes, myelocytes and metamyelocytes) > 1% indicates that a LEFT SHIFT is Present. MCV (mean corpuscular volume ) determinationOrdered By: Apolinar Lenz on 05-25-2025 MCV (RBC) [Entitic vol] 90.3 fL 81-[address] [facility] Mean corpuscular hemoglobin (MCH) determinationOrdered By: Apolinar Lenz on 05-25-2025 MCH (RBC) [Entitic mass] 29.6 pg 27.0-32.[address] [facility] Mean corpuscular hemoglobin concentration (MCHC) determinationOrdered By: Apolinar Lenz on 05-25-2025 MCHC (RBC) [Mass/Vol] 32.8 g/dL 32-36 [facility] Mean platelet volume determi nationOrdered By: Apolinar Lenz on 05-25-2025 Platelet mean volume (Bld) [Entitic vol] 10.2 fL 6.2-12.[address] [facility] Monocyte percentageOrdered B y: Apolinar Lenz on 05-25-2025 Monocytes/100 WBC (Bld) 13.0 % High 0-[address] [facility] Neutrophil percentageOrdered By: Apolinar Lenz on 05-25-2025 Neutrophils/100 WBC (Bld) 54.0 % 47-[address] [facility] No Panel InformationOrdered By: Apolinar Lenz on 05-25-2025 RAST Comment Comment . [facility] Comment on above: Levels of Specific I [...] RBC/100 WBC (Bld) [Ratio] 0 % 0-[address] [facility] Platelet countOrdered By: Barajas on 05-25-2025 Platelets (Bld) [#/Vol] 413 10*3/uL 150-[address] [facility] Pulmonary Visit Reporton Pulmonary Visit Report [facility] [place] [address] [place] [address] OFFICE VISIT Date of Service: 05/25/25 MR#: [id number] Acct: [id number] Name: MAURI CONCEPCION Rep #: [id number] : 1945 Provider: Dr. Apolinar Lenz, Age/Sex: 79/F Location: [facility] Status: Signed Assessment and Plan [...] Visit Reasons: Cough Chief Complaint: cough, sneezing Content Curator Required: No Accompanied by: Self Allergies No [...] clear co (more content not included)... Normal [facility] RBC Auto (Bld) [#/Vol]Ordere d By: Apolinar Lenz on 05-25-2025 RBC (Bld) [#/Vol] 4.73 10*6/uL 4.2-5.4 [facility] Serum Montenegrin sycamore IgE antibody assay (units/volume)Ordered By: Apolinar Lenz on 05-25-2025 Montenegrin Harleigh IgE Qn (S) <0.10 kU/L Class [address] [facility] Serum Aspergillus fumigatus IgE antibody assay (units/volume)Ordered By: Apolinar Lenz on 05-25-2025 A. fumigatus IgE Qn (S) <0.10 kU/L Class [address] [facility] Serum Bermuda grass IgE anti body assay (units/volume)Ordered By: Apolinar Lenz on 05-25-2025 Bermuda grass IgE Qn (S) <0.10 kU/L Class [address] [facility] Serum Cladosporium herbarum IgE antibody assay (units/volume)Ordered By: Apolinar Lenz on 05-25-2025 C. herbarum IgE Qn (S) <0.10 kU/L Class 0 [facility] Serum Dermatophagoides ptero nyssinus specific IgE antibody assay (units/volume)Ordered By: Apolinar Lenz on 05-25-2025 house dust mite IgE Qn (S) <0.10 kU/L Class [address] [facility] Serum Fraxinus americana IgE antibody assay (units/volume)Ordered By: Apolinar Lenz on 05-25-2025 White Lucas IgE Qn (S) <0.10 kU/L Class 0 [facility] Serum Rumex acetosella IgE a ntibody assay (units/volume)Ordered By: Apolinar Lenz on 05-25-2025 Sheep [place] IgE Qn (S) <0.10 kU/L Class [address] [facility] Comment on above: Performed at: [address] [id number] Director: Laura Vallejo MD, Phone: [phone] Serum black walnut IgE antib domonique assay (units/volume)Ordered By: Apolinar Lenz on 05-25-2025 Black [place] IgE Qn (S) <0.10 kU/L Class [address] [facility] Serum cottonwood IgE antibod y assay (units/volume)Ordered By: Apolinar Lenz on 05-25-2025 [place] IgE Qn (S) <0.10 kU/L Class 0 [facility] Serum dog epithelium IgE ant ibody assay (units/volume)Ordered By: Apolinar Lenz on 05-25-2025 Dog epithelium IgE Qn (S) <0.10 kU/L Class [address] [facility] Serum kenan IgE antibody a ssay (units/volume)Ordered By: Apolinar Lenz on 05-25-2025 Kenan IgE Qn (S) <0.10 kU/L Class 0 [facility] Serum white elm IgE antibody assay (units/volume)Ordered By: Apolinar Lenz on 05-25-2025 White [place]m IgE Qn (S) <0.10 kU/L Class 0 [facility] Serum white mulberry IgE ant ibody assay (units/volume)Ordered By: Apolinar Lenz on 05-25-2025 White mulberry IgE Qn (S) <0.10 kU/L Class [address] [facility] White blood cell (WBC) count Ordered By: Apolinar Lenz on 05-25-2025 WBC (Bld) [#/Vol] 6.8 10*3/uL 4.4-11.0 [facility] CBC-Complete Blood Cnt No Di ffon 04-11-2025 Erythrocyte distribution width (RBC) [Ratio] 14.0 % Normal 11.6-14.[address] [facility] Comment on above: Order Comment: Order Date: 04/11/25 Order Info: [id number] - CBC Order Info: [id number] - SED Performed By: #### L 100.0500 #### [facility] [address] [place], [address] Hematocrit (Bld) [Volume fraction] 41.9 % Normal 37-[address] [facility] Comment on above: Order Comment: Order Date: 04/11/25 Order Info: [id number] - CBC Order Info: [id number] - SED Performed By: #### L 100.0500 #### [facility] [address] [place], [address] Hemoglobin (Bld) [Mass/Vol] 13.5 g/dL Normal 12.0-15.[address] [facility] Comment on above: Order Comment: Order Date: 04/11/25 Order Info: [id number] - CBC Order Info: [id number] - SED Performed By: #### L 100.0500 #### [facility] [address] [place], [address] MCH (RBC) [Entitic mass] 29.7 pg Normal 27.0-32.[address] [facility] Comment on above: Order Comment: Order Date: 04/11/25 Order Info: [id number] - CBC Order Info: [id number] - SED Performed By: #### L 100.0500 #### [facility] [address] [place], [address] MCHC (RBC) [Mass/Vol] 32.2 g/dL Normal 32-36 [facility] Comment on above: Order Comment: Order Date: 04/11/25 Order Info: [id number] - CBC Order Info: [id number] - SED Performed By: #### L 100.0500 #### [facility] [address] [place], [address] MCV (RBC) [Entitic vol] 92.3 fL Normal 81-[address] [facility] Comment on above: Order Comment: Order Date: 04/11/25 Order Info: [id number] - CBC Order Info: [id number] - SED Performed By: #### L 100.0500 #### [facility] [address] [place], [address] Platelet mean volume (Bld) [Entitic vol] 11.4 fL Normal 6.2-12.[address] [facility] Comment on above: Order Comment: Order Date: 04/11/25 Order Info: [id number] - CBC Order Info: [id number] - SED Performed By: #### L 100.0500 #### [facility] [address] [place], [address] Platelets (Bld) [#/Vol] 440 10*3/uL Normal 150-[address] [facility] Comment on above: Order Comment: Order Date: 04/11/25 Order Info: [id number] - CBC Order Info: [id number] - SED Performed By: #### L 100.0500 #### [facility] [address] [place], [address] RBC (Bld) [#/Vol] 4.54 10*6/uL Normal 4.2-5.4 [facility] Comment on above: Order Comment: Order Date: 04/11/25 Order Info: [id number] - CBC Order Info: [id number] - SED Performed By: #### L 100.0500 #### [facility] [address] [place], [address] RDW SD 47.4 fl High 35.1-43.[address] [facility] Comment on above: Order Comment: Order Date: 04/11/25 Order Info: [id number] - CBC Order Info: [id number] - SED Performed By: #### L 100.0500 #### [facility] [address] [place], [address] WBC (Bld) [#/Vol] 9.7 10*3/uL Normal 4.4-11.0 [facility] Comment on above: Order Comment: Order Date: 04/11/25 Order Info: [id number] - CBC Order Info: [id number] - SED Performed By: #### L 100.0500 #### [facility] [address] [place], [place], [address] Erythrocyte Sed Rateon 04-11 SED RATE 14 mm/hr Normal 0-[address] [facility] Comment on above: Order Comment: Order Date: 04/11/25 Order Info: [id number] - CBC Order Info: [id number] - SED Performed By: #### L 101.9900 #### [facility] [address] [place], [place], [address] Erythrocyte distribution wid th ratioOrdered By: [facility] on 04-11-2025 Erythrocyte distribution width (RBC) [Ratio] 14.0 % 11.6-14.[address] [facility] Erythrocyte distribution wid th standard deviationOrdered By: on 04-11-2025 Erythrocyte distribution width (RBC) [Ratio] 47.4 fl High 35.1-43.[address] [facility] Erythrocyte sedimentation ra teOrdered By: Kenneth [facility] on 04-11-2025 ESR (Bld) [Velocity] 14 mm/h 0-30 [facility] Hematocrit Auto (Bld) [Volum e fraction]Ordered By: [facility] on 04-11-2025 Hematocrit (Bld) [Volume fraction] 41.9 % 37-[address] [facility] Hemoglobin measurementOrdere d By: Kenneth Sidhu on 04-11-2025 Hemoglobin (Bld) [Mass/Vol] 13.5 g/dL 12.0-15.[address] [facility] MCV (mean corpuscular volume ) determinationOrdered By: Kenneth [facility] on 04-11-2025 MCV (RBC) [Entitic vol] 92.3 fL 81-[address] [facility] Mean corpuscular hemoglobin (MCH) determinationOrdered By: [facility] 04-[facility] MCH (RBC) [Entitic mass] 29.7 pg 27.0-32.[address] [facility] Mean corpuscular hemoglobin concentration (MCHC) determinationOrdered By: Kenneth Boltonisabel on 04-11-2025 MCHC (RBC) [Mass/Vol] 32.2 g/dL 32-36 [facility] Mean platelet volume determi nationOrdered By: Kenneth Meyer on 04-11-2025 Platelet mean volume (Bld) [Entitic vol] 11.4 fL 6.2-12.[address] [facility] Platelet countOrdered By: An gel orr on 04-11-2025 Platelets (Bld) [#/Vol] 440 10*3/uL 150-[address] [facility] RBC Auto (Bld) [#/Vol]Ordere d By: Kenneth Meyer on 04-11-2025 RBC (Bld) [#/Vol] 4.54 10*6/uL 4.2-5.4 [facility] White blood cell (WBC) count Ordered By: Kenneth Meyer on 04-11-2025 WBC (Bld) [#/Vol] 9.7 10*3/uL 4.4-11.0 [facility] CNPNon 02-14-2025 [facility] Telephone ([facility]) -- MAURI CONCEPCION ([id number]) 1945 F Date Time Provider Department 02/14/25 AMADA TREVINO [facility] During your visit today, we recorded the following information about you: Kayla Mon LPN 02/14/2025 11:27 AM Signed [facility] office calling asking if patient had chest xray yesterday with her express care visit. Advised radiology closed on Friday. Requested copy of office notes be faxed to [phone], so they can decide if patient needs xray done. Printed and faxed as requested. Allergies As of Date: 02/14/2025 (No Known Allergies) Date Reviewed: 02/13/2025 Reviewed by: Sharla Miller MA - Fully Assessed Reason for Visit: [facility] request records [Other] Prescriptions as [...] and Lateralon 02-14 Chest PA and Lateral [facility] Imaging Services [address] [place], [place] [address] Chest PA and Lateral MR#: [id number] Acct: [id number] Name: JUANAMAURI Tanesha Rep #: [id number] : 1945 F 79 From: Easton alvarez MD PCP: Dr. Cerdick Zayas MD Status: REG CLI Study: Chest PA and Lateral Date of Exam: 02/14/25 Exam# [id number] Ordering Dr: 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 PROCEDURE: CHEST PA [...] either linear atelectasis and/or scarring. Reading Location: [facility] CC: Dr. 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 Normal [facility] CNOVon 02-13-2025 CN Office Visit ([facility] ) -- MAURI CONCEPCION ([id number]) 1945 F Date Time Provider Department 02/13/25 9:45 AM AMADA TREVINO [facility] During your visit today, we recorded the following information about you: Temperature Pulse Respiration Blood pressure 98.3 degrees 80/minute 16/minute 122/76 Weight 93.4 kg Amada Trevino APRN.RN CLINICAL APPEALS 02/13/2025 10:42 AM Signed [facility] Subjective HPI HPI Mauri Concepcion [...] EXTRACTION HX Bilateral COLONOSCOP W/ OR W/O [facility] SPEC 07/22/2019 Colonoscopy COLONOSCOPY 12/2009 [facility] [...] Reporton 1 12-09-2023 Urgent Care Visit Report [facility] [address], [address] [place] [address] OFFICE VISIT Date of Service: 10/08/24 MR#: [id number] Acct: [id number] Name: MAURI CONCEPCION Rep #: [id number] : 1945 Provider: ALCIDES Parham Age/Sex: 79/F Location: [facility] Status: Signed Intake Vital Signs 05/16/24 08:09 [...] Cosigner Signature: Date (if applicable) CC: Normal [facility] Urgent Care Visit Reporton 0 07-15-2024 Urgent Care Visit Report [facility] [address], [address] [place] [address] OFFICE VISIT Date of Service: 07/15/24 MR#: [id number] Acct: [id number] Name: MAURI CONCEPCION Rep #: [id number] : 1945 Provider: ALCIDES Parham Age/Sex: 79/F Location: [facility] Status: Signed Intake Vital Signs 05/16/24 08:09 [...] Reasons: SORE THROAT Chief Complaint: sore throat Content Curator Required: No Is patient in pain?: Yes [...] Parkinson Signature: Date (if applicable) CC: Normal [facility] Dexa Bone Density Studyon Dexa Bone Density Study [facility] Imaging Services [address] [place] [address] Dexa Bone Density Study MR#: [id number] Acct: [id number] Name: MAURI CONCEPCION Rep #: [id number] : 1945 F 79 From: Easton alvarez MD PCP: Dr. 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 MD Status: [facility] Study: Dexa Bone Density Study Date of Exam: 07/02/24 Exam# [id number] Ordering Dr: 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 [id number] STUDY: DUAL ENERGY X-RAY ABSORPTIOMETRY / DXA [...] EDT , CC: Dr. 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 MD Status: REG CLI Study: SCRN MAMM (CAD)W/MARK BILAT Date of Exam: 04/19 Exam# [id number] Ordering Dr: 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 [id number] MAMMOGRAPHY - BILATERAL SCREENING REASON FOR EXAM: [...] delay biopsy of a clinically suspicious abnormality. [id number] Electronically Signed: Easton Mccrary MD at 10:35 EDT , CC: Dr. 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 [place], [place], [id number] (294) Hematocrit (Bld) [Volume fraction] 44.1 % Normal 37-[address] [facility] Comment on above: Order Comment: Order Date: 06/08/24 Order Info: [id number] - CBC Performed By: #### L 100.0500 #### [facility] [address] [place], [address] Hemoglobin (Bld) [Mass/Vol] 14.1 g/dL Normal 12.0-15.[address] [facility] Comment on above: Order Comment: Order Date: 06/08/24 Order Info: [id number] - CBC Performed By: #### L 100.0500 #### [facility] [address] [place], [address] MCH (RBC) [Entitic mass] 29.0 pg Normal 27.0-32.[address] [facility] Comment on above: Order Comment: Order Date: 06/08/24 Order Info: [id number] - CBC Performed By: #### L 100.0500 #### [facility] [address] [place], [address] MCHC (RBC) [Mass/Vol] 32.0 g/dL Normal 32-36 [facility] Comment on above: Order Comment: Order Date: 06/08/24 Order Info: [id number] - CBC Performed By: #### L 100.0500 #### [facility] [address] [place], [address] MCV (RBC) [Entitic vol] 90.6 fL Normal 81-[address] [facility] Comment on above: Order Comment: Order Date: 06/08/24 Order Info: [id number] - CBC Performed By: #### L 100.0500 #### [facility] [address] [place], [address] Platelet mean volume (Bld) [Entitic vol] 10.4 fL Normal 6.2-12.[address] [facility] Comment on above: Order Comment: Order Date: 06/08/24 Order Info: [id number] - CBC Performed By: #### L 100.0500 #### [facility] [address] [place], [address] Platelets (Bld) [#/Vol] 412 10*3/uL Normal 150-[address] [facility] Comment on above: Order Comment: Order Date: 06/08/24 Order Info: [id number] - CBC Performed By: #### L 100.0500 #### [facility] [address] [place], [address] RBC (Bld) [#/Vol] 4.87 10*6/uL Normal 4.2-5.4 [facility] Comment on above: Order Comment: Order Date: 06/08/24 Order Info: [id number] - CBC Performed By: #### L 100.0500 #### [facility] [address] [place], [address] RDW SD 45.3 fl High 35.1-43.[address] [facility] Comment on above: Order Comment: Order Date: 06/08/24 Order Info: [id number] - CBC Performed By: #### L 100.0500 #### [facility] [address] [place], [address] WBC (Bld) [#/Vol] 5.7 10*3/uL Normal 4.4-11.0 [facility] Comment on above: Order Comment: Order Date: 06/08/24 Order Info: [id number] - CBC Performed By: #### L 100.0500 #### [facility] [address] [place], [address] Comprehensive Metabolic Prof rion 06-21-2024 Albumin [Mass/Vol] 3.7 g/dL Normal 3.2-5.0 [facility] Comment on above: Order Comment: Order Date: 06/08/24 Order Info: [id number] - CMP Order Info: [id number] - LIPID Order Info: 3016-3 - TSH Performed By: #### L 506.1000, L500.4050, L500.4100, L501.9520 #### [facility] [address] [place], [address] Albumin/Globulin [Mass ratio] 0.9 {ratio} Normal 0.9-2.[address] [facility] Comment on above: Order Comment: Order Date: 06/08/24 Order Info: [id number] - CMP Order Info: [id number] - LIPID Order Info: [id number] - TSH Performed By: #### L 506.1000, L500.4050, L500.4100, L501.9520 #### [facility] [address] [place], [address] ALK P 74 U/L Normal 45-[address] [facility] Comment on above: Order Comment: Order Date: 06/08/24 Order Info: 0786-1 - CMP Order Info: [id number] - LIPID Order Info: [id number] - TSH Performed By: #### L 506.1000, L500.4050, L500.4100, L501.9520 #### [facility] [address] [place], [address] ALT [Catalytic activity/Vol] 20 U/L Normal 13-[address] [facility] Comment on above: Order Comment: Order Date: 06/08/24 Order Info: 0786-1 - CMP Order Info: [id number] - LIPID Order Info: 3016-3 - TSH Performed By: #### L 506.1000, L500.4050, L500.4100, L501.9520 #### [facility] [address] [place], [address] AST [Catalytic activity/Vol] 16 U/L Normal 15-[address] [facility] Comment on above: Order Comment: Order Date: 06/08/24 Order Info: 0786-1 - CMP Order Info: [id number] - LIPID Order Info: 3016-3 - TSH Performed By: #### L 506.1000, L500.4050, L500.4100, L501.9520 #### [facility] [address] [place], [address] Bilirubin [Mass/Vol] 0.20 mg/dL Normal 0.20-1.00 [facility] Comment on above: Order Comment: Order Date: 06/08/24 Order Info: 0786-1 - CMP Order Info: [id number] - LIPID Order Info: 3016-3 - TSH Result Comment: For patients on eltrombopag therapy, use of Dimension Babb TBIL is not recommended. Performed By: #### L 506.1000, L500.4050, L500.4100, L501.9520 #### [facility] [address] [place], [address] BUN/CRE 26.4 RATIO High 10-[address] [facility] Comment on above: Order Comment: Order Date: 06/08/24 Order Info: 0786-1 - CMP Order Info: [id number] - LIPID Order Info: 3 - TSH Performed By: #### L 506.1000, L500.4050, L500.4100, L501.9520 #### [facility] [address] [place], [address] CA,Total 9.0 mg/dL Normal 8.5-10.[address] [facility] Comment on above: Order Comment: Order Date: 06/08/24 Order Info: 0786- - CMP Order Info: [id number] - LIPID Order Info: 3 - TSH Performed By: #### L 506.1000, L500.4050, L500.4100, L501.9520 #### [facility] [address] [place], [address] Chloride [Moles/Vol] 106 mmol/L Normal 98-107 [facility] Comment on above: Order Comment: Order Date: 06/08/24 Order Info: 0786- - CMP Order Info: [id number] - LIPID Order Info: 3 - TSH Performed By: #### L 506.1000, L500.4050, L500.4100, L501.9520 #### [facility] [address] [place], [address] CO2 [Moles/Vol] 24.0 mmol/L Normal 21.0-32.[address] [facility] Comment on above: Order Comment: Order Date: 06/08/24 Order Info: 0786-1 - CMP Order Info: [id number] - LIPID Order Info: 3 - TSH Performed By: #### L 506.1000, L500.4050, L500.4100, L501.9520 #### [facility] [address] [place], [address] Creatinine [Mass/Vol] 0.64 mg/dL Normal 0.55-1.02 [facility] Comment on above: Order Comment: Order Date: 06/08/24 Order Info: 785-10 - CMP Order Info: - LIPID Order Info: [id number] - TSH Result Comment: The validity of the calculated GFR GFRAA in patients over 70 years has not been determined. Clinical correlation is essential. Performed By: #### L 506.1000, L500.4050, L500.4100, L501.9520 #### [facility] [address] [place], [address] EST GFR - AA 115 mL/min Normal >[address] [facility] Comment on above: Order Comment: Order Date: 06/08/24 Order Info: 785-10 - CMP Order Info: - LIPID Order Info: 3 - TSH Result Comment: Afri can Montenegrin GFR Calc Performed By: #### L 506.1000, L500.4050, L500.4100, L501.9520 #### [facility] [address] [place], [address] GAP 9 Normal 5-[address] [facility] Comment on above: Order Comment: Order Date: 06/08/24 Order Info: 785-10 - CMP Order Info: - LIPID Order Info: 3 - TSH Performed By: #### L 506.1000, L500.4050, L500.4100, L501.9520 #### [facility] [address] [place], [address] GFR/1.73 sq M.predicted among non-blacks MDRD (S/P/Bld) [Vol rate/Area] 95 mL/min/{1.73_m2} Normal >[address] [facility] Comment on above: Order Comment: Order Date: 06/08/24 Order Info: 785-10 - CMP Order Info: [id number] - LIPID Order Info: 3016-3 - TSH Result Comment: Non- GFR Calc Performed By: #### L 506.1000, L500.4050, L500.4100, L501.9520 #### [facility] [address] [place], [address] Globulin (S) [Mass/Vol] 3.9 g/dL Normal 2.2-4.[address] [facility] Comment on above: Order Comment: Order Date: 06/08/24 Order Info: 785-1 - CMP Order Info: [id number] - LIPID Order Info: 3015-3 - TSH Performed By: #### L 506.1000, L500.4050, L500.4100, L501.9520 #### [facility] [address] [place], [address] Glucose [Mass/Vol] 106 mg/dL Normal 74-106 [facility] Comment on above: Order Comment: Order Date: 06/08/24 Order Info: 785-10 - CMP Order Info: - LIPID Order Info: 3015-3 - TSH Result Comment: Fast ing Glucose result from 100 to 125 mg/dL suggests IMPAIRED HOMEOSTASIS per A.D.A. criteria. Performed By: #### L 506.1000, L500.4050, L500.4100, L501.9520 #### [facility] [address] [place], [address] Potassium [Moles/Vol] 3.8 mmol/L Normal 3.5-5.1 [facility] Comment on above: Order Comment: Order Date: 06/08/24 Order Info: 785-10 - CMP Order Info: [id number] - LIPID Order Info: 3015-3 - TSH Performed By: #### L 506.1000, L500.4050, L500.4100, L501.9520 #### [facility] [address] [place], [address] Sodium [Moles/Vol] 139 mmol/L Normal 136-145 [facility] Comment on above: Order Comment: Order Date: 06/08/24 Order Info: 785-10 - CMP Order Info: - LIPID Order Info: 3 - TSH Performed By: #### L 506.1000, L500.4050, L500.4100, L501.9520 #### [facility] [address] [place], [address] T PROT 7.6 g/dL Normal 6.4-8.[address] [facility] Comment on above: Order Comment: Order Date: 06/08/24 Order Info: 785- - CMP Order Info: [id number] - LIPID Order Info: 3015-12 - TSH Performed By: #### L 506.1000, L500.4050, L500.4100, L501.9520 #### [facility] [address] [place], [address] Urea nitrogen [Mass/Vol] 17 mg/dL Normal 7-[address] [facility] Comment on above: Order Comment: Order Date: 06/08/24 Order Info: 785-10 - CMP Order Info: - LIPID Order Info: 3015-12 - TSH Performed By: #### L 506.1000, L500.4050, L500.4100, L501.9520 #### [facility] [address] [place], [address] Lipid Profileon 06-21-2024 Cholesterol [Mass/Vol] 258 mg/dL High 200 [facility] Comment on above: Order Comment: Order Date: 06/08/24 Order Info: 785-10 - CMP Order Info: - LIPID Order Info: [id number] - TSH Result Comment: <200 mg/dL Desirable 200-240 mg/dL Borderline >240 mg/dL High Risk Performed By: #### L 506.1000, L500.4050, L500.4100, L501.9520 #### [facility] [address] [place], [address] Cholesterol in HDL [Mass/Vol] 63 mg/dL Normal [facility] Comment on above: Order Comment: Order Date: 06/08/24 Order Info: 785- - CMP Order Info: - LIPID Order Info: 3015-12 - TSH Result Comment: The drugs N-Acetylcysteine and Metamizole may falsely depress this assay. Reference Range HDL <40 mg/dL Low HDL Cholesterol HDL >or= 60 mg/dL High HDL Cholesterol Performed By: #### L 506.1000, L500.4050, L500.4100, L501.9520 #### [facility] [address] [place], [address] Cholesterol in LDL [Mass/Vol] 177 mg/dL High 0-[address] [facility] Comment on above: Order Comment: Order Date: 06/08/24 Order Info: 0786-1 - CMP Order Info: [id number] - LIPID Order Info: 3016-3 - TSH Performed By: #### L 506.1000, L500.4050, L500.4100, L501.9520 #### [facility] [address] [place], [address] Cholesterol in VLDL [Mass/Vol] 18 mg/dL Normal 5-[address] [facility] Comment on above: Order Comment: Order Date: 06/08/24 Order Info: 0786-1 - CMP Order Info: [id number] - LIPID Order Info: 6-3 - TSH Performed By: #### L 506.1000, L500.4050, L500.4100, L501.9520 #### [facility] [address] [place], [address] Triglyceride [Mass/Vol] 90 mg/dL Normal [facility] Comment on above: Order Comment: Order Date: 06/08/24 Order Info: 0786-1 - CMP Order Info: [id number] - LIPID Order Info: 3016-3 - TSH Result Comment: The drugs N-Acetylcysteine and Metamizole may falsely depress this assay. Serum Triglycerides Reference Interval Normal <150 mg/dL Borderline high 150 - 199 mg/dL High 200 - 499 mg/dL Very High > or = 500 mg/dL Performed By: #### L 506.1000, L500.4050, L500.4100, L501.9520 #### [facility] [address] [place], [place], [address] Thyroid Stim Hormone (TSH)on 06-21-2024 TSH 2.500 uIU/mL Normal 0.358-3.[address] [facility] Comment on above: Order Comment: Order Date: 06/08/24 Order Info: 0786-1 - CMP Order Info: [id number] - LIPID Order Info: 3016-3 - TSH Performed By: #### L 506.1000, L500.4050, L500.4100, L501.9520 #### [facility] [address] [place], [address] Vitamin D,25 Hydroxyon 06-21 Vitamin D 25-OH 33.4 ng/mL Normal [facility] Comment on above: Order Comment: Order Date: 06/08/24 Order Info: [id number] - VITD25 Result Comment: Karishma min D 25(OH) Status Range Deficiency <20 ng/mL (50nmol/L) Insufficiency 20 - 30 ng/mL (50 - 75 nmol/L) Sufficiency 30 - 100 ng/mL (75 - 250 nmol/L) Toxicity >100 ng/mL (>250 nmol/L) Performed By: #### L 506.1000, L500.4050, L500.4100, L501.9520 #### [facility] [address] [place], [address] US RENAL ONLYon 04-09-2019 US RENAL ONLY [...] or myelolipoma. 2. No hydronephrosis or nephrolithiasis. [employer]IL[employer] Workstation ID: [id number] Dictated by: PAOLO PAK on FriApr 09, 2019 8:47:45 AM EDT Transcribed by: JOY PARKER on FriApr 09, 2019 9:05:39 AM EDT Finalized by: PAOLO PAK on FriApr 09, 2019 7:32:12 PM EDT Normal [facility] Comment on above: Order Comment: ORDER CONVERSION [...] or myelolipoma. 2. No hydronephrosis or nephrolithiasis. [employer] Workstation ID: [id number] [facility] EXAMINATION: US SHANITA L ONLY HISTORY: ORDERING [...] 03/19/2017 (3.8 x 3.0 x 3.7 cm). [facility], Rad In Fu ji Speechq - [...] or myelolipoma. 2. No hydronephrosis or nephrolithiasis. [employer] Workstation ID: [id number] [facility] US RENAL RETROPERITONEALon 0 03-19-2018 US RENAL RETROPERITONEAL Final ReportAccession No: [id number] Performed: Mar 19 2018 9:29AMExamination: US RENAL RETROPERITONEALCLINICAL INFORMATION: Follow up right adrenal mass.COMPARISON STUDY: 03/19/2017.TECHNIQUE: Real-time renal loza scale and Color Doppler evaluation ofbilateralkidneys was performed.FINDINGS: The right kidney measures 10.8 x 5.5 x 6.0 cm and the tlteciizlk86.5 x 5.3 x 6.1 cm in size.There [...] MATY BUTTS M.D.Trans: dcarr : cc: [facility] Vital Signs Date Time Vital Sign Value Performing Clinician Josey lewis 05-25-2025 07:31-0400 Body height 167.[address] 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 MD Work Phone: [facility] 05-25-2025 07:31-0400 Body mass index (BMI) [Ratio] 33.4 kg/m2 Dr. 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 MD Work Phone: [facility] 05-25-2025 07:31-0400 Body temperature 97.4 [degF] Dr. 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 MD Work Phone: [facility] 05-25-2025 07:31-0400 Body weight 93.[address] 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 MD Work Phone: [facility] 05-25-2025 07:31-0400 Diastolic blood pressure 82 mm[Hg] Dr. 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 MD Work Phone: [facility] 05-25-2025 07:31-0400 Heart rate 67 /min Dr. 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 MD Work Phone: [facility] 05-25-2025 07:31-0400 Respiratory rate 18 /min Dr. 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 MD Work Phone: [facility] 05-25-2025 07:31-0400 SaO2% (BldA) [Mass fraction] 97 % Dr. 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 MD Work Phone: [facility] 05-25-2025 07:31-0400 Systolic blood pressure 165 mm[Hg] Dr. 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 MD Work Phone: [facility] 02-13-2025 09:49-0400 Body mass index (BMI) [Ratio] 33.23 kg/m2 Amada Trevino APRN.CNP Work Phone: [facility] 02-13-2025 09:49-0400 Body temperature 98.29 [degF] Amada Trevino APRN.RN CLINICAL APPEALS Work Phone: [facility] 02-13-2025 09:49-0400 Body weight 93.4 kg Amada Trevino HEALTH SERVICES COORDINATOR.RN CLINICAL APPEALS Work Phone: [facility] 02-13-2025 09:49-0400 Diastolic blood pressure 76 mm[Hg] Amada Trevino HEALTH SERVICES COORDINATOR.RN CLINICAL APPEALS Work Phone: [facility] 02-13-2025 09:49-0400 Heart rate 80 /min Amada Trevino HEALTH SERVICES COORDINATOR.RN CLINICAL APPEALS Work Phone: [facility] 02-13-2025 09:49-0400 Respiratory rate 16 /min Amada Trevino HEALTH SERVICES COORDINATOR.RN CLINICAL APPEALS Work Phone: [facility] 02-13-2025 09:49-0400 SaO2% (BldA) [Mass fraction] 97 % Amada Trevino HEALTH SERVICES COORDINATOR.RN CLINICAL APPEALS Work Phone: [facility] 02-13-2025 09:49-0400 Systolic blood pressure 122 mm[Hg] Amada Trevino HEALTH SERVICES COORDINATOR.RN CLINICAL APPEALS Work Phone: [facility] Encounters Encounter Date Encounter Type Care Provider Facility Start: 06-06-2025 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 Start: 05-25-2025 End: 05-25-[address] Apolinar Lenz -[facility] Work Phone: Start: 05-25-2025 End: 05-25-[address] 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 MD Work Phone: -[facility] Start: 05-25-2025 End: 05-25-2025 ambulatory Apolinar Lenz Facility:[facility] Start: 04-11-2025 End: 04-11-[address] 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 MD Work Phone: [facility] Work Phone: Start: 04-11-2025 End: 04-11-2025 Patient encounter procedure Kenneth Meyer AIR PURIFIER SERVICER-C -[facility] Work Phone: Start: 04-11-2025 End: 04-11-2025 ambulatory Kenneth Meyer NP Facility:[facility] Start: 02-14-2025 End: 02-14-2025 Telephone encounter Amada Trevino DEVONTE.RN CLINICAL APPEALS Work Phone: [facility] Comment on above: [facility] request [facility] Start: 02-14-2025 End: 02-14-[address] 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 MD -[facility] [place] Work Phone: Start: 02-13-2025 End: 02-13-2025 Patient encounter procedure Amada King DEVONTE.RN CLINICAL APPEALS Work Phone: [facility] Comment on above: Lower resp. tract in fection (Primary Dx) Start: 02-13-2025 End: 02-14-2025 ambulatory CEDRICK ZAYAS Facility:[facility] Start: 10-08-2024 End: 10-08-2024 ambulatory 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 Facility:[facility] Start: 07-15-2024 End: 07-15-2024 ambulatory 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 Facility:[facility] Start: 07-02-2024 End: 07-02-2024 ambulatory 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 Facility:[facility] Start: 06-21-2024 End: 06-21-2024 ambulatory 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 Facility:[facility] Start: 01-06-2024 End: 01-06-[address] [facility] Work Phone: Start: 01-06-2024 End: 01-06-[address] [facility] [place] Work Phone: Start: 03-05-2023 End: 03-05-[address] [facility] Work Phone: Start: 03-05-2023 End: 03-05-[address] [facility] Start: 12-02-2020 End: 12-02-2020 Orders Only Sharla Cuevas Work Phone: [facility] Start: 04-09-2019 End: 04-10-2019 Patient encounter procedure SAUNDRA RM [facility] Start: 04-09-2019 End: 04-09-2019 Patient encounter procedure Saundra Corral Work Phone: [facility] Ultrasound Comment on above: Adrenal mass (HCC) Start: 03-19-2018 Ambulatory Saundra Corral Facility: [place] Start: 03-19-2018 End: 03-19-2018 Ambulatory Saundra Corral Work Phone: [facility] Procedures Date Procedure Procedure Detail Performing Clinician Start: 05-25-2025 Alternaria alternata DANNIELLE Zayas MD Work Phone: Start: 05-25-2025 Montenegrin cockroach DANNIELLE Zayas MD Work Phone: Start: 05-25-2025 Box elder DANNIELLE Zayas MD Work Phone: Start: 05-25-2025 Cat dander DANNIELLE Zayas MD Work Phone: Start: 05-25-2025 [place] DANNIELLE Zayas MD Work Phone: Start: 05-25-2025 [...] DANNIELLE Zayas MD Work Phone: Start: 05-25-2025 Ukrainian thistle RASTanesha Zayas MD Work Phone: Start: 05-25-2025 Tree pollen DANNIELLE Zayas MD Work Phone: Start: 05-25-2025 [place] pollen DANNIELLE Zayas MD Work Phone: Start: 02-14-2025 X-ray of chest, PA a nd lateral views Dr. 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 MD Work Phone: Start: 01-06-2024 Radiography of ankle Start: 03-05-2023 Screening mammography Start: 04-09-2019 Us retroperitoneal r eal time w/image limited External Transcribed Plan of Treatment Date Care Activity Detail Author Start: 06-06-2025 Measurement of respiratory function [facility] Start: 10-27-2024 Advance Directive Discussion Advance Directive Discussion [facility] Start: 06-27-2024 Covid-19 Vaccine ( season) Covid-19 Vaccine ( season) [facility] Start: 06-27-2024 Influenza vaccination [facility] Start: 05-25-2024 Urine microalbumin profile DTaP,Tdap,Td Vaccine (2 - Td or Tdap) [facility] Start: 2022 RSV Vaccine (1 - 1-dose 75+ series) RSV Vaccine (1 - 1-dose 75+ series) [facility] Start: 06-27-2020 Influenza vaccination given Sequential Influenza Vaccine (#1) [facility] Start: 06-27-2019 Influenza vaccination given SEQUENTIAL INFLUENZA VACCINE (Season Ended) [facility] Start: 2012 Pneumococcal vaccination PNEUMOCOCCAL VACCINE AGE 65+ (1 of 2 - PCV13) [facility] Start: 09-26-2009 Diabetes Screening Diabetes Screening [facility] Start: 1997 Administration of herpes zoster vaccine Zoster Vaccines (1 of 2) [facility] Start: 1997 Screening for malignant neoplasm of colon [facility] Start: 1997 Shingrix Vaccine (1 of 2) Shingrix Vaccine (1 of 2) [facility] Start: 1965 Anxiety Screening Anxiety Screening [facility] Start: 1965 Depression Screening Depression Screening [facility] Start: 1965 Hepatitis C antibody, confirmatory test Hepatitis C Screening [facility] Start: 1965 Hepatitis C screening Hepatitis C Screening [facility] Start: 1963 COVID-19 Vaccine (1 of 2) COVID-19 Vaccine (1 of 2) [facility] Start: 1959 Adolescent depression screening assessment Depression Screening (PHQ9) [facility] Start: 1950 History and physical examination, annual for health maintenance Wellness Visit [facility] Start: 1947 Fall risk assessment Falls Risk Assessment [facility] Start: 1947 Hepatitis C antibody, confirmatory test HEPATITIS C SCREENING [facility] Start: 1947 Protein mass conc Mammogram [facility] Start: 1947 Screening for malignant neoplasm of colon Colorectal Cancer Screening: Colonoscopy [facility] Start: 1947 Screening for osteoporosis Dexa Scan [facility] Start: 1947 Screening mammography Mammogram [facility] Start: 1947 Tetanus vaccination [facility] CBC W Auto Different ial panel - Blood [facility] IgE [Units/volume] i n Serum or Plasma [facility] Measurement of respiratory function [facility] Immunizations Immunization Date Immunization Notes Care Provider Fa kendall 09-18-2021 influenza virus vacc ine, unspecified formulation Amada Trevino HEALTH SERVICES COORDINATOR.RN CLINICAL APPEALS Work Phone: [facility] Payers Date Payer Category Payer Self-pay [id number] 2015 Private Health Insurance HUMANA HUMANA OTHER AFTER MEDICARE xxxxxxxxx 2015-Present xxxxxxxxx [id number] 2015 Private Health Insurance HUMANA HUMANA OTHER AFTER MEDICARE [id number] 2015-Present [id number] 2015 Private Health Insurance HUMANA [id number] 2015 Private Health Insurance [id number] 2012 Medicare MEDICARE MEDICAR E PART A & B xxxxxxxxxxx 2012-Present [place] xxxxxxxxxxx [id number] 2012 Medicare MEDICARE MEDICAR E PART A & B [id number] 2012-Present [place] [id number] 2012 Medicare MEDICARE [id number] 2012 Medicare [id number] 1945 Unknown [id number] Medicare [id number] Unknown [id number] Unknown [id number] Unknown [id number] Unknown [id number] Unknown [id number] Unknown [id number] Unknown [id number] Unknown [id number] Unknown [id number] Social History Date Type Detail Facility Tobacco smoking stat [facility] Unknown if ever smoked [facility] Start: 1945 Sex Assigned At Not on file [facility] Start: 09-01-2022 Tobacco smoking stat [facility] Unknown if ever smoked [facility] Start: 1945 Sex Assigned At Female [facility] Start: 07-22-2019 End: 05-25-2025 Tobacco smoking status NHIS Ex-smoker [facility] Start: 07-22-1969 End: 07-22-1989 History of tobacco use Current smoker [facility] Start: 07-22-1969 End: 07-22-1989 History of tobacco use Cigarette Smoker [facility] Start: 07-22-2019 End: 10-01-2020 Cigarettes smoked current (pack per day) - Reported 1 [facility] Start: 07-22-2019 Tobacco use and exposure Smokeless tobacco non-user [facility] Start: 07-22-2019 Alcoholic beverage intake Ex-drinker (finding) [facility] Start: 07-22-2019 End: 10-01-2020 Tobacco use panel [facility] National Score (1-10 0), lower number is lower risk Not on file [facility] Evaluation note 05-25-2025 Note Date & Type Note Facility 05-25-2025 Evaluation note Diagnosis Onset Date Resolution Cough resolved May 25 10:34am [facility] Work Phone: Telephone encounter Note 02-14-2025 Telephone Encounter - Kayla Mon LPN - 02/14/2025 11:24 AM EDT Note Date & Type Note Facility 02-14-2025 Telephone encount er Note [facility] calling asking if patient had chest xray yesterday with her express care visit. Advised radiology closed on Friday. Requested copy of office notes be faxed to [phone], so they can decide if patient needs xray done. Printed and faxed as requested. [facility] Note 02-14-2025 Telephone Encounter - Kayla Mon LPN - 02/14/2025 11:24 AM EDT Note Date & Type Note Facility 02-14-2025 Miscellaneous Notes Formattin g of this note might be different from the original. [facility] office calling asking if patient had chest xray yesterday with her express care visit. Advised radiology closed on Friday. Requested copy of office notes be faxed to [phone], so they can decide if patient needs xray done. Printed and faxed as requested. documented in this encounter [facility] Progress note 02-13-2025 Note Date & Type Note Facility 02-13-2025 Note HNO ID: [id number] Author: AMADA TREVINO APRN.RN CLINICAL APPEALS Service: ? Author Type: Nurse Practitioner Type: [...] EXTRACTION HX Bilateral COLONOSCOP W/ OR W/O [facility] SPEC 07/22/2019 Colonoscopy COLONOSCOPY 12/2009 [facility] [...] was discharged. Procedures documented in this encounter [facility] Evaluation note Note Date & Type Note Facility Evaluation note No assessment information availa ble [facility] Work Phone: Evaluation note Note Date & Type Note Facility Evaluation note Diagnosis Lower resp. tract infection- Primary Other diseases of respiratory system, not elsewhere classified documented in this encounter [facility] Evaluation note Note Date & Type Note Facility Evaluation note Diagnosis Onset Date Resolution Cough acute May 25 10:34am [facility] Work Phone: Reason for referral (narrative) Note Date & Type Note Facility Reason for referral (narrative) No reason for referral information available [facility] Work Phone: Summary Purpose Family History No Family History Records Found Relationship Condition Age at Onset Recorded Date/T caleb Not Specified Malignant neoplasm Unknown Relationship Condition Age at Onset Recorded Date/T caleb mother Malignant neoplasm Unknown father Malignant neoplasm Unknown brother Malignant neoplasm Unknown sister Malignant neoplasm Unknown Advance Directives No Advanced Directives Records FoundDocuments on File Type Date Recorded 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 Advance Directives and Livin g Will 04/09/2019 7:22 AM Documents on File Type Date Recorded 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 Advance Directives and Livin g Will 04/09/2019 7:22 AM Advance Directive Response Recorded Date/ Time Living Will No July 02 019 12:35pm Power of Straight Line Edger No July 02, 2019 12:35pm Reason for Referral Status Reason Specialty Diagnoses / Procedures Referred By Contact Referred To Contact Pending Review Radiology Diagnoses Adrenal mass (HCC) Procedures US Renal Only Saundra Corral MD [address] [place] [address] Assessments Diagnosis Adrenal mass (HCC) Unspecified disorder [...] section and content) DATE CREATED AUTHOR 04/15/2018 [facility] DATE CREATED AUTHOR AUTHOR'S ORGANIZ ATION 04/10/2019 [facility] DATE CREATED AUTHOR AUTHOR'S ORGANIZ ATION 03/02/2025 [facility] DATE CREATED AUTHOR AUTHOR'S ORGANIZ ATION 06/04/2025 [facility] Reason for Visit (unrecogniz ed section and content) Status Reason Specialty Diagnoses / Procedures Referred By Contact Referred To Contact Pending Review Radiology Diagnoses Adrenal mass (HCC) Procedures US Renal Only Saundra Corral MD [address] [place], [place] [id number] Reason Comments Sinus Problem sinus pressure, drai nage, chest congestion, cough x 3-4 days Reason Comments [facility] record s Care Teams (unrecognized sec tion and content) Team Status: Active Member Role Status Dates Dr. Demetrius Zayas MD Family Provider Active Dr. Demetrius Zayas MD Primary Care Provider Activ e Team Status: Inactive Member Role Status Dates Dr. Demetrius Zayas MD Primary Care Provider, Attending Provider, Referring Provider Active Team Status: Inactive Member Role Status Dates Dr. Demetrius Zayas MD Primary Care Provider Activ e Dr. Chas To MD Attending Provider, Referring Prov ider Active Biomedical Equipment Tech Relationship Specialty Start Date End Date 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 MD [address] [place] [id number] PCP - General Family Medicine 02/13/25 Biomedical Equipment Tech Relationship Specialty Start Date End Date 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 MD [address] [place] [address] PCP - General Family Medicine 02/13/25 Team [...] 2025 End: April 11, 2025 Kenneth Meyer AIR PURIFIER SERVICER, AIR PURIFIER SERVICER-C Attending Provider Active Start: April 11, 2025 End: April 11, 2025 Kenneth Meyer AIR PURIFIER SERVICER, AIR PURIFIER SERVICER-C Referring Provider Active Start: April 11, 2025 [...] 2025 End: April 11, 2025 Kenneth Meyer AIR PURIFIER SERVICER, AIR PURIFIER SERVICER-C Attending Provider Active Start: April 11, 2025 End: April 11, 2025 Kenneth Meyer AIR PURIFIER SERVICER, AIR PURIFIER SERVICER-C Referring Provider Active Start: April 11, 2025 [...] or prosecute any alcohol or drug abuse patient.[facility] the event this information is protected by the Federal Confidentiality of Alcohol and Drug Abuse Patient Records regulations: The Federal rules restrict any use of the information to criminally investigate or prosecute any alcohol or drug abuse patient.[facility] FOR RECORDS PERTAINING TO PATIENTS WHO [...] BE BASED ON THE PRIMARY CLINICAL RECORDS. [facility]. provides no warranty or guarantee of the accuracy or completeness of information in this document.
== END | disposition home or self-care (01) ==
LOC: PSN 06:29
PROVIDERS: PCP Family Medicine; Referring Provider Internal Medicine Critical Care Medicine; Visit Provider Internal Medicine Critical Care Medicine
DX: R05.9 Cough, unspecified (principal)
CPT/HCPCS: 94060; 94726; 94729

== ENCOUNTER → 2025-08-29 | Outpatient (CLI) | payer MEDICARE, OTHER, SELFPAY ==
--- NOTE | 2025-08-29 06:49 | CT_ITS ---
PROCEDURE: CT/Chest without Contrast
== END | disposition home or self-care (01) ==
PROVIDERS: PCP Family Medicine; Referring Provider Family Medicine; Visit Provider Family Medicine
DX: R05.9 Cough, unspecified (principal)
CPT/HCPCS: 71250

== ENCOUNTER → 2025-09-08 | Outpatient (CLI) | payer MEDICARE, OTHER, SELFPAY ==
--- OUTSIDE RECORDS SUMMARY | 2025-09-08 07:30 | XMS RPT_ITS | CCD ---
Author Organization [facility] Care Team Providers Care Serology Teacher Name Role Phone Unavailable Unavailable Unavailable Saundra Corral Unavailable Unavailable Saundra Corral Unavailable Unavailable 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 Primary Care Provider SAUNDRA CORRAL Attending Unavailable SAUNDRA CORRAL Referring Unavailable CEDRICK ZAYAS Primary Care Unavail able 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 Primary Care Provider 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 MD Primary Care Provider Dr. 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 MD Primary Care Provider Dr. 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 MD Attending Provider Dr. 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 MD Referring Provider Cheorrow Kenneth FOWLER Attending Provider Kenneth Weber Referring Provider Dr. Apolinar Lenz DO Attending Provider Dr. Apolinar Lenz DO Referring Provider Dr. 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 MD Primary Care Provider Dr. 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 MD Referring Provider Fernanda SAMPSON-CKrista Attending Provider Dr. 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 MD Primary Care Physicia n [place] X RAY TECHNOLOGISTKenneth Zhou Attending Physician Dr. Apolinar Lenz DO Attending Physician Fernanda X RAY TECHNOLOGIST-CKrista Attending Physician [phone] AMADA TREVINO Attending Unavailable CHANA, CEDRICK B Primary Care Unavailabl e LEROY MASON Attending Unavailable CHANA, CEDRICK B Primary Care Unavailabl e [facility] Unavailable Apolinar Lenz Attending Unavailable Ranshen, Christmayliner Referring Unavailable [facility] Unavailable Krista Michael Attending Unavailable Chana, Christmayliner Referring Unavailable Apolinar Lenz Referring Unavailable [facility] Unavailable Apolinar Lenz Attending Unavailable [facility], [facility] Unavailable Krista Michael Attending Unavailable Chana, Christmayliner Referring Unavailable [facility], [facility] Primary [facility] Unavailable Chana, Cedrick Attending Unavailable Chana, Christmayliner Referring Unavailable [facility] Unavailable Chana, Cedrick Attending Unavailable Chana, Cedrick Referring Unavailable McMorrow X RAY TECHNOLOGIST, Kenneth Attending Unavailable McMorrow X RAY TECHNOLOGIST, Kenneth Referring Unavailable [facility] Unavailable Apolinar Lenz Referring Unavailable Ranshen, [facility] Primary [facility] Unavailable Apolinar Lenz Attending Unavailable [facility], [facility] Primary [facility] Unavailable Krista Michael Attending Unavailable Chana, Pedroer Referring Unavailable [facility] Unavailable Molina Giles Attending Unavailable Chana, Cedrick Referring Unavailable Medications Current Medications Medication Drug Class(es) Dates Sig (Normalized) Sig (Original) acetylcysteine 600 mg oral capsule (1 source) Antidote, Mucolytic, Antidote for Acetaminophen Overdose Start: 07-29-2025 take 1 capsule by mouth once daily Acetylcysteine (Nac) 600 mg capsule Active 600 mg PO daily July 29, 2025 12:00am Complies with drug therapy [id number] actuat albuterol 0.09 mg/actuat metered dose inhaler (5 sources) beta2-Adrenergic Agonist Start: 05-25-2025 Albuterol Sulfate 90 mcg/actuation HFA aerosol inhaler Active INHALATION May 25, 2025 12:00am Complies with drug therapy Ascorbic Acid (2 sources) Vitamin C ascorbic [...] Active doxycycline monohydrate 100 mg oral tablet (8 sources) Tetracycline-class Drug Start: 02-13-2025 End: 02-20-2025 [...] TABLET PO DAILY December 17, 2019 1:00am omeprazole 20 mg delayed release oral capsule (2 sources) Proton Pump Inhibitor Start: 06-24-2025 take 1 capsule by mouth once daily Omeprazole 20 mg capsule,delayed release(DR/EC) Active 20 mg PO daily 30 June 24, 2025 12:00am Complies with drug therapy prevagen (2 sources) Start: 06-24-2025 prevagen Activ e PO June 24, 2025 12:00am Complies with drug therapy Start: 06-24-2025 prevagen Activ e PO June 24, 2025 12:00am vitamin E mixed/tocotrienol (VITAMIN E COMPLEX ORAL) (2 sources) vitamin E mixed/ tocotrienol (VITAMIN E COMPLEX ORAL) Take by mouth once daily. Active Completed/Discontinued Medications Medication Drug Class(es) Dates Sig (Normalized) Sig (Original) amoxicillin 875 mg / clavulanate 125 mg oral tablet (6 sources) Penicillin-class Antibacterial Start: 07-16-2024 End: 07-26-2024 Amoxicillin-Pot Clavulanate 875-125 mg tablet Discontinued 1 {tbl} PO Q12H 20 10 0 July 16, 2024 12:00am July 25, 2024 12:00am July 26, 2024 12:07am Acute sinusitis, unspecified azithromycin 250 mg oral tablet (6 sources) Macrolide Antimicrobial Start: 10-08-2024 End: 05-25-2025 take 2-5 tablets by mouth once daily Azithromycin 250 mg tablet Discontinued 0 PO .COMPLEX 6 0 October 08, 2024 1:00am May 25, 2025 10:40am take 500 mg today (day 1), then 250 mg for 4 days (days 2-5) PO Multivitamin tablet (6 sources) Start: 12-17-2019 End: 05-25-2025 Multivitamin tablet Discontinued 1 {tbl} PO DAILY December 17, 2019 1:00am May 25, 2025 10:41am Start: 12-17-2019 Multivitamin t ablet Active 1 {tbl} PO DAILY December 17, 2019 1:00am Nirmatrelvir-Ritonavir (8 sources) Start: 09-01-2022 End: 05-16-2024 Nirmatrelvir-Ritonavir (Paxl ovid (Eua)) 300 mg (150 mg x 2)-100 mg tablets,dose pack Discontinued 0 PO .COMPLEX 30 September 01, 2022 12:00am May 16, 2024 [...] Date Documented Da te Episodic/Chronic Acute bronchitis (6 sources) Acute bronchitis; Translations: [Acute bronchitis, unspecified] 10-08-2024 Episodic Asthma (1 source) Mild intermittent asthma, uncomplicated; Translations: [Mild intermittent asthma, uncomplicated] Onset: 09-06-2025 Chronic Immunizations and screening for infectious disease (8 sources) Contact with and (suspected) exposure to other viral communicable diseases; Translations: [Exposure to influenza] 12-17-2019 Episodic Other gastrointestinal disorders (1 source) Adrenal mass; 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 Other lower respiratory disease (16 sources) Cough; Translations: [Cough] 10-21-2021 Episodic Other lower respiratory disease (1 source) Lower respiratory tract infection; Translations: [Unspecified acute lower respiratory infection] 02-13-2025 Episodic Other upper respiratory infections (20 sources) Laryngitis; Translations: [Acute laryngitis] Onset: 07-26-2025 05-21-2020 Episodic Unclassified (8 sources) Age more than 65 years; Translations: [Over 65 years old] 10-23-2021 Unclassified (1 source) Cough, unspecified; Translations: [Cough, unspecified] Onset: 09-02-2025 Viral infection (8 sources) Disease caused by 2019-nCoV; Translations: [COVID-19] 10-21-2021 Episodic Past or Other Problems Problem Classification Problem Date Documented Da te Episodic/Chronic Other lower respiratory disease (1 source) Unspecified acute lower respiratory infection; Translations: [Lower resp. tract infection] Onset: 02-13-2025 Episodic Other lower respiratory disease (1 source) Chronic cough; Translations: [Chronic cough] Onset: 04-14-2025 Episodic Results Test Name Value Interpretation Reference Range Facility Pulmonary Visit Reporton Pulmonary Visit Report [facility] [address] [place] [address] OFFICE VISIT Date of Service: 09/06/25 MR#: [id number] Acct: [id number] Name: MAURI CONCEPCION Rep #: [id number] : 1945 Provider: Krista Michael NP Age/Sex: 80/F [place] [facility] [place] Status: Signed Assessment and Plan Assessment and Plan (1) Mild intermittent asthma: Status: Acute Qualifiers: Asthma complication type: uncomplicated Qualified Code(s): J45.20 - Mild intermittent asthma, uncomplicated Plan: The patient has been asked to return demonstrate inhaler technique. The technique that the patient is demonstrating today is incorrect. I have educated the patient on correct inhaler technique. Historically, NIOX has been elevated in the past which supports the diagnosis of mild intermittent asthma. I believe that her symptoms are present when she has exposure to a trigger such as uncontrolled acid reflux otherwise she is asymptomatic. Lung exam is clear without wheeze, rhonchi, rales. I cannot induce bronchospasm with forced expiration. Reassess technique and response to inhaler on follow-up. I have encouraged her to use a spacer. Oral hygiene after inhaled therapy use has also been encouraged. (2) Cough: Status: Acute Plan: I have discussed the correlation of hoarseness and cough to suboptimal control of gastrointestinal reflux. Further recommendations on follow-up may be to proceed with an EGD through general surgery for the cough. Continue with consistent use of omeprazole 20 mg 30 minutes before breakfast. After the current prescription is completed then patient should receive refills of omeprazole through her PCP. (3) Shortness of breath: Status: Acute Plan: The patient is reporting fatigue along with shortness of breath today. The fatigue scale is not elevated despite her report of it. The shortness of breath could be due to incorrect technique of inhaled therapy- proper technique was reviewed with patient today. The PFT does not show obstructive or restrictive lung disease. There is no evidence of any interstitial lung disease on CT imaging. I have recommended further cardiac testing and if positive will refer to cardiology. I will also be looking to see if the right ventricular systolic pressure is elevated on the echocardiogram. Pulmonary hypertension is also in the differential along with cardiovascular disease especially given the coronary artery calcifications found on the CT imaging. Future recommendations may be to complete a sleep study due to history of snoring, ESS is not elevated today. The patient is aware she has short sleep cycles throughout the week and likely has insufficient sleep times. Proper sleep hygiene was discussed with patient today. Orders: Orders Echo Complete W/ Contrast Today R06.02 - Shortness of breath Stress Test Regular Today R06.02 - Shortness of breath Medications: Refilled budesonide-formoterol 80-4.5 mcg/actuation (Symbicort) 2 puffs inhalation BID 10.2 grams 6RF J45.20 - Mild intermittent asthma, uncomplicated Plan The patient may benefit from repeating laryngoscopy in the future as well. Plan Details Additional Comments: This note was generated with [employer] dictation software. It may contain incorrect words, spelling, and punctuation that were not noted in checking the note before signing. Portions of this documentation have been copied and pasted from previous office visit notes to provide a cohesive continuity of the history. The note has been reviewed, edited, and updated, as necessary. Follow Up: 3 to 4 weeks (LMR) HPI HPI Comments Details: The patient is a 80-year-old female who presents to the office today for acute appointment in regards to cough. She is ambulatory and currently on room air. She is accompanied today by her daughter. Since last evaluation she has recently developed some cough for the past few weeks along with loss of voice. She reports that her voice has improved in the past day along with her cough. Her daughter indicates that this has been occurring since earlier this year. She was recently treated with an antibiotic from her PCP a couple of weeks ago due to nasal congestion and cough. She denies fever and body aches. She indicates that the antibiotic did not provide her with improvement. She continues to have cough that is mostly dry now. She reports that it is occasionally productive with yellow sputum. She reports that wheeze is present. It is an end expiratory wheeze described by daughter today. She will have shortness of breath at times. She reports that shortness of breath occurs with exertion. She indicates that when she walks up a flight of stairs she will become short winded and she has to stop her activity to catch her breath. The patient reports that fatigue is also present. She repor (more content not included)... Normal [facility] Chest without Contraston Chest without Contrast [facility] Imaging Services [address] [place] [address] Chest without Contrast MR#: [id number] Acct: [id number] Name: MAURI CONCEPCION Rep #: [id number] : 1945 F 80 From: Easton alvarez MD PCP: Dr. 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 MD Status: REG CLI Study: Chest without Contrast Date of Exam: 08/29/25 Exam# [id number] Ordering Dr: 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 PROCEDURE: CHEST WITHOUT CONTRAST 08/29/2025 REASON FOR EXAM: COUGH, SOB, HX SMOKING Hoarseness. Cough. History of asthma. TECHNIQUE: Chest CT without contrast. Coronal and Sagittal reconstruction series were provided. One or more dose reduction techniques were used (e.g., Automated exposure control, adjustment of the mA and/or kV according to patient size, use of iterative reconstruction technique RADIATION DOSE SUMMARY: CTDlvol: 12.96 mGy DLP: 485.91 mGycm COMPARISON: Chest radiograph dated February 14, 2025. FINDINGS: Hardware: None Lymph nodes: Small benign-appearing axillary lymph nodes as well as mediastinal lymph nodes. These are normal with the size criteria. Heart and Vasculature: The heart is nonenlarged. Atherosclerotic calcifications of the thoracic aorta. Thoracic aorta and pulmonary arteries have normal contours; noncontrast technique limits evaluation. Coronary Artery Calcifications: Present Lungs and Airways: Hyperinflation. Mild degree of increased linear markings at the lung bases suggestive of mild linear scarring. No suspicious infiltrate or lung nodule seen Pleura: Unremarkable Upper Abdomen: There is a 3.1 cm by 1.9 cm predominantly fatty nodule in the right adrenal gland with punctate calcifications. This may represent an adrenal myelolipoma. Bones: Degenerative changes of the thoracic spine. CT/Chest without Contrast IMPRESSION: Coronary artery calcification (CAC) is is present Findings suggestive of mild linear scarring at the lung bases. 3.1 cm 1.9 cm predominantly fatty nodule in the right adrenal gland with punctate calcifications. This may represent an adrenal myelolipoma. Reading Location: [id number] CC: Dr. 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 MD Shot Tube Machine Tender: Signed Normal [facility] Pulmonary Visit Reporton 10- 03-2025 Pulmonary Visit Report [facility] Pulmonary Medicine [address] [place] [address] OFFICE VISIT Date of Service: 07/29/25 MR#: [id number] Acct: [id number] Name: MAURI CONCEPCION Rep #: [id number] : 1945 Provider: Krista Michael NP Age/Sex: 80/F [facility] [place] Status: Signed Assessment and Plan Assessment and Plan (1) Mild intermittent asthma: Status: Acute Plan: NIOX is elevated today which supports the diagnosis of mild intermittent asthma. I believe that her symptoms are present when she has exposure to a trigger otherwise she is asymptomatic. She has had improvement in symptoms and lung exam is clear without wheeze, rhonchi, Rales. At this point I am recommending the use of Airsupra 2 inhalations twice daily and 2 samples have been provided to her. She is instructed to use good oral care after inhaler use. She will use this inhaler for the next 4 to 7 day and then give an update to this practice. I believe that the combination of a short acting beta agonist and inhaled corticosteroid will control her cough and help her repeat turn to baseline without the use of a systemic steroid exposure. (2) Cough: Status: Acute Plan: I continue to believe that the patient's initial symptoms of hoarseness and cough could be related to suboptimal control of gastrointestinal reflux especially given the recent order of events with the omeprazole on board and the cough not significantly worsening and producing yellow sputum. Continue with omeprazole 20 mg 30 minutes before breakfast. After the current prescription is completed then patient should receive refills of omeprazole through her PCP. Orders: Orders NIOX Today R05.9 - Cough, unspecified Medications: New albuterol-budesonide 90-80 mcg/actuation (Airsupra) 2 inhalations inhalation BID PRN 10.7 grams 11RF shortness of breath or wheezing Discontinued albuterol sulfate 90 mcg/actuation Discontinued Reason: Order Completed inhalation Plan Details Additional Comments: This note was generated with [employer] dictation software. It may contain incorrect words, spelling, and punctuation that were not noted in checking the note before signing. Follow Up: 3 Months (LMR) HPI HPI Comments Details: The patient is a 80-year-old female who presents to the office today for acute appointment in regards to cough. She is ambulatory and currently on room air. Since last evaluation she has recently developed some cough for the past 3 to 4 days along with loss of voice. She reports that her voice has improved in the past day along with her cough. She denies fever and body aches. She did experience chills. She denies wheeze. She will have shortness of breath at times. She was seen by [facility] urgent care provider 07/26/25 who prescribed an antibiotic but she reports that she did not need it. She does have a rescue inhaler but reports she has not needed it recently. She reports that usually when she loses her voice then the respiratory illness will go into her chest and produce a cough with yellow sputum. This did not occur with the current episode. The patient reported that she had been experiencing a cough which initially began in January 2025. However, the patient reported that her cough subsided spontaneously prior to previous appointment. During the time that she was symptomatic, the patient was seen in the urgent care 3 separate times and was treated with antibiotics and steroids. The only thing that led to symptom improvement her cough was the use of corticosteroids. The patient was evaluated by ENT and underwent [...] currently prescribed an JOHANNY inhibitor. The patient was provided with albuterol inhaler [...] She denies a history of seasonal allergies. She does indicate that she does get heartburn now daily. 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 She will experience symptoms after she eats a meal. At last office visit she was prescribed omeprazole and reports that it was helpful in reducing her symptoms and eliminating her use of Tums. Lab work including IgE, RAST respiratory 5 panel, eosinophilic count are all within normal limits from May 25, 2025. Pulmonary fun (more content not included)... Normal [facility] CNOVon 07-26-2025 CNOV Office Visit ([facility]) -- MAURI CONCEPCION ([id number]) 1945 F Date Time Provider Department 07/26/25 4:15 PM MARLON LEROYMODESTA CODY During your visit today, we recorded the following information about you: Temperature Pulse Respiration Blood pressure 98.2 degrees 71/minute 18/minute 132/82 Weight 96.2 kg Leroy Mason APRN.TOY DESIGNER 07/26/2025 5:21 PM Signed [facility] Subjective Mauri Concepcion is a 80 year old female. Patient presents with: Cough: Cough, chest congestion and chills x 2 days HPI The patient is a 80-year-old female presenting with a 2-day history of URI symptoms. Upper Respiratory Infection: - Onset of symptoms 2 days ago. - Reports feeling awful with no energy. - Denies fever, body aches, or chest congestion. - Concerned about progression to chest involvement, as experienced in previous episodes. - Similar episodes occurred in January, February, and March, with symptoms resolving and recurring. - Previous evaluations by Dr. Ramires (ENT) and Dr. Lenz (Booking Agent) found no abnormalities. - Denies known exposure to sick contacts. - No history of seasonal allergies; previous allergy testing by Dr. Ramires was negative. - Former smoker; pulmonary function test by Dr. Lenz showed no evidence of COPD. - Denies current use of Flonase or Zyrtec. - Only medication taken is Prevagen. Review of Systems Constitutional: (+) malaise, (+) fatigue, (-) fever Musculoskeletal: (-) myalgia Respiratory: (-) chest congestion (-) nasal congestion (-) sore throat PAST MEDICAL HISTORY Diagnosis Date - Disorder of bone and cartilage, unspecified - PMH - PAST MEDICAL HISTORY OF mass on adrenal gland - Snoring PAST SURGICAL HISTORY Procedure Laterality Date - APPENDECTOMY - CATARACT EXTRACTION HX Bilateral - COLONOSCOPY 12/2009 [facility] - COLONOSCOPY FLX DX W/COLLJ SPEC WHEN PFRMD 07/22/2019 Colonoscopy - LIG/TRNSXJ FLP TUBE ABDL/VAG APPR UNI/BI Tubal ligation - REMOVE TONSILS/ADENOIDS,<12 Y/O ALLERGIES Patient has no known allergies. MEDICATIONS - benzonatate (TESSALON PERLE) 100 mg capsule Take 2 capsules by mouth three times a day as needed. - triamcinolone acetonide (NASACORT ALLERGY) 55 mcg nasal inhaler Use 2 sprays in each nostril once daily. - doxycycline hyclate (VIBRAMYCIN) 100 mg capsule Take 1 capsule by mouth two times a day for 7 days. - cetirizine (ZYRTEC) 10 mg tablet Take 1 tablet by mouth once daily. - vitamin E mixed/tocotrienol (VITAMIN E COMPLEX ORAL) Take by mouth once daily. (Patient not taking: Reported on 02/13/2025) - ascorbic acid (VITAMIN C ORAL) Take by mouth once daily. (Patient not taking: Reported on 02/13/2025) - CALCIUM CARBONATE/VITAMIN D3 (CALCIUM 600 + D ORAL) Take 1 tablet by mouth once daily. (Patient not taking: Reported on 02/13/2025) - PREVACID 30 MG CAP Take one(1) capsule twice daily. (Patient not taking: Reported on 07/26/2025) - DAILY MULTIVITAMIN TAB Take one(1) tablet daily. (Patient not taking: Reported on 02/13/2025) FAMILY HISTORY Problem Relation Age of Onset - Cancer Father throat - Breast Cancer Paternal Grandmother - other (lymphoma) Mother SOCIAL HISTORY[1] Objective BP 132/82 Pulse 71 Temp 36.8 ?C (98.2 ?F) (Tympanic) Resp 18 Wt 96.2 kg (212 lb 1.3 oz) SpO2 99% BMI 34.23 kg/m? Physical Exam Constitutional: General: She is not in acute distress. Appearance: Normal appearance. She is normal weight. She is not ill-appearing or toxic-appearing. HENT: Head: Normocephalic and atraumatic. Right Ear: Tympanic membrane, ear canal and external ear normal. Left Ear: Tympanic membrane, ear canal and external ear normal. Nose: Congestion and rhinorrhea present. Mouth/Throat: Mouth: Mucous membranes are moist. Pharynx: No oropharyngeal exudate or posterior oropharyngeal erythema. Eyes: Extraocular Movements: Extraocular movements intact. Conjunctiva/sclera: Conjunctivae normal. Pupils: Pupils are equal, round, and reactive to light. Cardiovascular: Rate and Rhythm: Normal rate and regular rhythm. Pulses: Normal pulses. Heart sounds: Normal heart sounds. Pulmonary: Effort: Pulmonary effort is normal. Breath sounds: Normal breath sounds. Lymphadenopathy: Cervical: No cervical adenopathy. Neurological: Mental Status: She is alert. { 1. Viral URI with cough (J06.9) - Symptoms present for 2 days; no current chest congestion or fever. - Previous episodes in January, February, and March; prior workup by ENT and pulmonology unremarkable. - Discussed rationale for delayed antibiotic prescribing; - Provided prescription for Tessalon Perles for cough management. - Provided prescription for Zyrtec and Nasacort for 90 days. - Educated patient on appropriate use of antibiotics and importance of reserving them for clinically indicated situations. Advised to monitor symptoms and us (more content not included)... Normal [facility] Pulmonary Visit Reporton Pulmonary Visit Report [facility] Pulmonary Medicine of [address] [place] [address] OFFICE VISIT Date of Service: 06/24/25 MR#: [id number] Acct: [id number] Name: MAURI CONCEPCION Rep #: [id number] : 1945 Provider: Krista Michael NP Age/Sex: 80/F [place] [facility] [place] Status: Signed with Addenda ADDENDUM by Krista Michael NP on 06/24/25 at 1890 Assessment and Plan Assessment and Plan (1) Cough: Status: Resolved Medications: New omeprazole 20 mg PO QDAY 30 caps 11RF Plan Details Additional Comments: The patient is aware that her blood pressure is elevated today and I recommend that she follow with PCP. Follow Up: as needed (LMR) 06/24/25 155 Date Krista Michael NP-C cc: Dr. 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 MD * Signed Assessment and Plan Assessment and Plan (1) Cough: Status: Resolved Plan: The patient presented to our office today for the evaluation of cough, which have been present since January 2025. The patient indicated that the cough resolved spontaneously and has not returned. Baseline pulmonary function did not show abnormal lung functioning. Lab studies including a CBC with differential, IgE and RAST profile were all negative. It is certainly possible that the patient may have a mild component of cough variant asthma. However, given her asymptomatic status and recent results of testing, would not plan to initiate any bronchodilator therapy. Today I feel like the source of the patient's cough could be related to underlying suboptimally treated gastroesophageal reflux and am therefore recommending a trial of omeprazole 20 mg 30 minutes before breakfast. If this provides her with benefit, she should continue prescription with PCP. If the patient were to once again become symptomatic with a cough, I would plan to check an exhaled nitric oxide level and further evaluate her in the office. Medications: New omeprazole 20 mg PO QDAY 30 caps 11RF Plan Details Follow Up: as needed (LMR) HPI HPI Comments Details: The patient is a 80-year-old female who presents to the office today for follow-up testing in regards to cough. She is ambulatory and currently on room air. Since last evaluation she has not required ER or urgent care for respiratory illness. She has not been treated with oral prednisone or antibiotics for respiratory symptoms. The patient reported that she had been experiencing a cough which initially began in January 2025. However, the patient reported that her cough subsided spontaneously prior to previous appointment. During the time that she was symptomatic, the patient was seen in the urgent care 3 separate times and was treated with antibiotics and steroids. The only thing that led to symptom improvement her cough was the use of corticosteroids. The patient was evaluated by ENT and underwent [...] currently prescribed an JOHANNY inhibitor. The patient was provided with albuterol inhaler [...] She denies a history of seasonal allergies. She does indicate that she does get heartburn now daily. 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 She will experience symptoms after she eats a meal. Today she reports that she has shortness of breath with stairs or some inclines but this does not occur on a daily basis. She denies cough today. She denies wheeze. She denies chest pain and chest tightness. Documentation reviewed with patient today includes: Lab work including IgE, RAST respiratory 5 panel, eosinophilic count are all within normal limits from May 25, 2025. Pulmonary function test from June 06, 2025 a normal pulmonary function study. Intake Vital Signs 05/25/25 07:31 06/24/25 05:38 Height 5 ft 6 in 5 ft 6 in Weight: 208 lb BMI 33.5 BP 152/78 H Blood Pressure Location Lt brachial Position Sitting Respiration 20 H Pulse 71 Pulse Source Monitor Temp 96.3 F L Temperature Source Temporal Artery Pulse Oximetry (%) 97 Oxygen Delivery Method room air Intake Visit Reasons: 1 M FU Chief Complaint: cough, sneezing Test Car Driver Required: No Accompanied by: Self Is (more content not included)... Normal [facility] Allergen Resp. Area 5on 08-0 ALTERNARIA TEN <0.10 Normal Class 0 [facility] Comment on above: Order Comment: Reaso n for Exam: Asthma Performed By: #### L 100.0100, L5500.0700, L3200.1600 #### [facility] [address] [place], [place], [id number] LUCAS, WHITE <0.10 Normal Class 0 [facility] Comment on above: Order Comment: Reaso n for Exam: Asthma Performed By: #### L 100.0100, L5500.0700, L3200.1600 #### [facility] [address] [place], [address] ASPERGILLUS FUM <0.10 Normal Class 0 [facility] Comment on above: Order Comment: Reaso n for Exam: Asthma Performed By: #### L 100.0100, L5500.0700, L3200.1600 #### [facility] [address] [place], [address] BERMUDA GRASS <0.10 Normal Class 0 [facility] Comment on above: Order Comment: Reaso n for Exam: Asthma Performed By: #### L 100.0100, L5500.0700, L3200.1600 #### [facility] [address] [place], [address] BIRCH <0.10 Normal Class 0 [facility] Comment on above: Order Comment: Reaso n for Exam: Asthma Performed By: #### L 100.0100, L5500.0700, L3200.1600 #### [facility] [address] [place], [address] BLACK WALNUT <0.10 Normal Class 0 [facility] Comment on above: Order Comment: Reaso n for Exam: Asthma Performed By: #### L 100.0100, L5500.0700, L3200.1600 #### [facility] [address] [place], [address] CAT HAIR/DANDER <0.10 Normal Class 0 [facility] Comment on above: Order Comment: Reaso n for Exam: Asthma Performed By: #### L 100.0100, L5500.0700, L3200.1600 #### [facility] [address] [place], [address] CLADOSPOR HERB <0.10 Normal Class 0 [facility] Comment on above: Order Comment: Reaso n for Exam: Asthma Performed By: #### L 100.0100, L5500.0700, L3200.1600 #### [facility] [address] [place], [address] COCKROACH,AMER <0.10 Normal Class 0 [facility] Comment on above: Order Comment: Reaso n for Exam: Asthma Performed By: #### L 100.0100, L5500.0700, L3200.1600 #### [facility] [address] [place], [address] COMMENT Comment Normal . [facility] Comment on above: Order Comment: Reaso [...] >100.00 Very High Performed By: #### L 100.0100, L5500.0700, L3200.1600 #### [facility] [address] [place], [address] COTTONWOOD <0.10 Normal Class 0 [facility] Comment on above: Order Comment: Reaso n for Exam: Asthma Performed By: #### L 100.0100, L5500.0700, L3200.1600 #### [facility] [address] [place], [address] D FARINAE MITE <0.10 Normal Class 0 [facility] Comment on above: Order Comment: Reaso n for Exam: Asthma Performed By: #### L 100.0100, L5500.0700, L3200.1600 #### [facility] [address] [facility] [address] D PTERONYSSINUS <0.10 Normal Class 0 [facility] Comment on above: Order Comment: Reaso n for Exam: Asthma Performed By: #### L 100.0100, L5500.0700, L3200.1600 #### [facility] [address] [place], [address] DOG EPITHELIA <0.10 Normal Class 0 [facility] Comment on above: Order Comment: Reaso n for Exam: Asthma Performed By: #### L 100.0100, L5500.0700, L3200.1600 #### [facility] [address] [place], [address] ELM,AMER WHITE <0.10 Normal Class 0 [facility] Comment on above: Order Comment: Reaso n for Exam: Asthma Performed By: #### L 100.0100, L5500.0700, L3200.1600 #### [facility] [address] [place], [address] IMMUNOGLOB E 18 IU/mL Normal 6-495 [facility] Comment on above: Order Comment: Reaso n for Exam: Asthma Performed By: #### L 100.0100, L5500.0700, L3200.1600 #### [facility] [address] [place], [address] MAPLE/BOX ELDER <0.10 Normal Class 0 [facility] Comment on above: Order Comment: Reaso n for Exam: Asthma Performed By: #### L 100.0100, L5500.0700, L3200.1600 #### [facility] [address] [place], [address] MOUNTAIN CEDAR <0.10 Normal Class 0 [facility] Comment on above: Order Comment: Reaso n for Exam: Asthma Performed By: #### L 100.0100, L5500.0700, L3200.1600 #### [facility] [address] [place], [address] Mouse Urine <0.10 Normal Class 0 [facility] Comment on above: Order Comment: Reaso n for Exam: Asthma Performed By: #### L 100.0100, L5500.0700, L3200.1600 #### [facility] [address] [place], [address] MULBERRY,WHITE <0.10 Normal Class 0 [facility] Comment on above: Order Comment: Reaso n for Exam: Asthma Performed By: #### L 100.0100, L5500.0700, L3200.1600 #### [facility] [address] [place], [address] OAK, WHITE <0.10 Normal Class 0 [facility] Comment on above: Order Comment: Reaso n for Exam: Asthma Performed By: #### L 100.0100, L5500.0700, L3200.1600 #### [facility] [address] [place], [address] PECAN <0.10 Normal Class 0 [facility] Comment on above: Order Comment: Reaso n for Exam: Asthma Performed By: #### L 100.0100, L5500.0700, L3200.1600 #### [facility] [address] [place], [address] PEN NOTATUM <0.10 Normal Class 0 [facility] Comment on above: Order Comment: Reaso n for Exam: Asthma Performed By: #### L 100.0100, L5500.0700, L3200.1600 #### [facility] [address] [place], [address] PIGWEED, ROUGH <0.10 Normal Class 0 [facility] Comment on above: Order Comment: Reaso n for Exam: Asthma Performed By: #### L 100.0100, L5500.0700, L3200.1600 #### [facility] [address] [place], [address] RAGWEED SH/COM <0.10 Normal Class 0 [facility] Comment on above: Order Comment: Reaso n for Exam: Asthma Performed By: #### L 100.0100, L5500.0700, L3200.1600 #### [facility] [address] [place], [address] MONTSERRATIAN THISTLE <0.10 Normal Class 0 [facility] Comment on above: Order Comment: Reaso n for Exam: Asthma Performed By: #### L 100.0100, L5500.0700, L3200.1600 #### [facility] [address] [place], [address] SHEEP SORREL <0.10 Normal Class 0 [facility] Comment on above: Order Comment: Reaso n for Exam: Asthma Result Comment: Perf ormed at: [facility] [employer] [id number] Spindle Frame Carver: Laura Vallejo MD, Phone: [phone] Performed By: #### L 100.0100, L5500.0700, L3200.1600 #### [facility] [address] [place], [address] SYCAMORE, AMER <0.10 Normal Class 0 [facility] Comment on above: Order Comment: Reaso n for Exam: Asthma Performed By: #### L 100.0100, L5500.0700, L3200.1600 #### [facility] [address] [place], [address] KENAN GRASS <0.10 Normal Class 0 [facility] Comment on above: Order Comment: Reaso n for Exam: Asthma Performed By: #### L 100.0100, L5500.0700, L3200.1600 #### [facility] [address] [place], [address] Immunoglobulin Crispin 5 IMMUNOGLOB E QN 16 IU/mL Normal 6-495 [facility] Comment on above: Result Comment: Perf ormed at: [facility] [id number] Spindle Frame Carver: Laura Vallejo MD, Phone: [phone] Performed By: #### L 100.0100, L5500.0700, L3200.1600 #### [facility] [address] [place], [address] Absolute lymphocyte countOrd ered By: Apolinargunnar Lenz on 05-25-2025 Lymphocytes Auto (Unsp spec) [#/Vol] 1.89 10*3/uL 0.83-4.51 [facility] Absolute neutrophil countOrd ered By: Apolinargunnar Lenz on 05-25-2025 Neutrophils (Bld) [#/Vol] 3.7 10*3/uL 2.0-7.7 [facility] Automated lymphocyte count a s percentage of total leukocytesOrdered By: Apolinar Lenz on 05-25-2025 Lymphocytes/100 WBC Auto (Unsp spec) 27.7 % 19-41 [facility] Basophil percentageOrdered B y: Apolinar Delfin on 05-25-2025 Basophils/100 WBC (Bld) 1.2 % High 0-1 [facility] CBC W/Diff, Automatedon 04-28 0 Absolute Lymph 1.89 X10 3/uL Normal 0.83-4.51 [facility] Comment on above: Performed By: #### L 100.0100, L5500.0700, L3200.1600 #### [facility] [address] [place], [address] Absolute Neut 3.7 X10 3/uL Normal 2.0-7.7 [facility] Comment on above: Performed By: #### L 100.0100, L5500.0700, L3200.1600 #### [facility] [address] [place], [address] Basophils/100 WBC (Bld) 1.2 % High 0-1 [facility] Comment on above: Performed By: #### L 100.0100, L5500.0700, L3200.1600 #### [facility] [address] [place], [address] Eosinophils/100 WBC (Bld) 3.8 % Normal 0-5 [facility] Comment on above: Performed By: #### L 100.0100, L5500.0700, L3200.1600 #### [facility] [address] [place], [address] Erythrocyte distribution width (RBC) [Ratio] 13.2 % Normal 11.6-14.6 [facility] Comment on above: Performed By: #### L 100.0100, L5500.0700, L3200.1600 #### [facility] [address] [place], [address] Hematocrit (Bld) [Volume fraction] 42.7 % Normal 37-47 [facility] Comment on above: Performed By: #### L 100.0100, L5500.0700, L3200.1600 #### [facility] [address] [place], [address] Hemoglobin (Bld) [Mass/Vol] 14.0 g/dL Normal 12.0-15.0 [facility] Comment on above: Performed By: #### L 100.0100, L5500.0700, L3200.1600 #### [facility] [address] [place], [address] IG% 0.300 Normal 0.0-0.9 [facility] Comment on above: Result Comment: IG% - Immature Granulocytes (promyelocytes, myelocytes and metamyelocytes) > 1% indicates that a LEFT SHIFT is Present. Performed By: #### L 100.0100, L5500.0700, L3200.1600 #### [facility] [address] [place], [address] Lymphocytes/100 WBC (Bld) 27.7 % Normal 19-41 [facility] Comment on above: Performed By: #### L 100.0100, L5500.0700, L3200.1600 #### [facility] [address] [place], [address] MCH (RBC) [Entitic mass] 29.6 pg Normal 27.0-32.0 [facility] Comment on above: Performed By: #### L 100.0100, L5500.0700, L3200.1600 #### [facility] [address] [place], [address] MCHC (RBC) [Mass/Vol] 32.8 g/dL Normal 32-36 [facility] Comment on above: Performed By: #### L 100.0100, L5500.0700, L3200.1600 #### [facility] [address] [place], [address] MCV (RBC) [Entitic vol] 90.3 fL Normal 81-99 [facility] Comment on above: Performed By: #### L 100.0100, L5500.0700, L3200.1600 #### [facility] [address] [place], [address] Monocytes/100 WBC (Bld) 13.0 % High 0-10 [facility] Comment on above: Performed By: #### L 100.0100, L5500.0700, L3200.1600 #### [facility] [address] [place], [address] Neutrophils/100 WBC (Bld) 54.0 % Normal 47-70 [facility] Comment on above: Performed By: #### L 100.0100, L5500.0700, L3200.1600 #### [facility] [address] [place], [address] Nucleated RBC (Bld) [#/Vol] 0 10*3/uL Normal 0-5 [facility] Comment on above: Performed By: #### L 100.0100, L5500.0700, L3200.1600 #### [facility] [address] [place], [address] Platelet mean volume (Bld) [Entitic vol] 10.2 fL Normal 6.2-12.0 [facility] Comment on above: Performed By: #### L 100.0100, L5500.0700, L3200.1600 #### [facility] [address] [place], [address] Platelets (Bld) [#/Vol] 413 10*3/uL Normal 150-450 [facility] Comment on above: Performed By: #### L 100.0100, L5500.0700, L3200.1600 #### [facility] [address] [place], [address] RBC (Bld) [#/Vol] 4.73 10*6/uL Normal 4.2-5.4 [place] Comment on above: Performed By: #### L 100.0100, L5500.0700, L3200.1600 #### [facility] [address] [place], [address] RDW SD 43.8 fl Normal 35.1-43.9 [facility] Comment on above: Performed By: #### L 100.0100, L5500.0700, L3200.1600 #### [facility] [address] [place], [address] WBC (Bld) [#/Vol] 6.8 10*3/uL Normal 4.4-11.0 [facility] Comment on above: Performed By: #### L 100.0100, L5500.0700, L3200.1600 #### [facility] [address] [place], [address] Eosinophil percentageOrdered By: Apolinar Lenz on 05-25-2025 Eosinophils/100 WBC (Bld) 3.8 % 0-5 [facility] Erythrocyte distribution wid th ratioOrdered By: Apolinar Lenz on 05-25-2025 Erythrocyte distribution width (RBC) [Ratio] 13.2 % 11.6-14.6 [facility] Erythrocyte distribution wid th standard deviationOrdered By: Apolinar Lenz on 05-25-2025 Erythrocyte distribution width (RBC) [Ratio] 43.8 fl 35.1-43.9 [facility] Hematocrit Auto (Bld) [Volum e fraction]Ordered By: Apolinar Lenz on 05-25-2025 Hematocrit (Bld) [Volume fraction] 42.7 % 37-47 [facility] Hemoglobin measurementOrdere d By: Apolinar Lenz on 05-25-2025 Hemoglobin (Bld) [Mass/Vol] 14.0 g/dL 12.0-15.0 [facility] IgEOrdered By: Apolinar Lenz o n 05-25-2025 IgE 16 IU/mL 6-495 [facility] Comment on above: Performed at: [address] [id number] Director: Laura Vallejo MD, Phone: [phone] Immature granulocytes/100 WB C Auto (Bld)Ordered By: Apolinar Lenz on 05-25-2025 Immature granulocytes/100 WBC (Bld) 0.300 % 0.0-0.9 [facility] Comment on above: IG% - Immature Granu locytes (promyelocytes, myelocytes and metamyelocytes) > 1% indicates that a LEFT SHIFT is Present. MCV (mean corpuscular volume ) determinationOrdered By: Apolinar Lenz on 05-25-2025 MCV (RBC) [Entitic vol] 90.3 fL 81-99 [facility] Mean corpuscular hemoglobin (MCH) determinationOrdered By: Apolinar Lenz on 05-25-2025 MCH (RBC) [Entitic mass] 29.6 pg 27.0-32.0 [facility] Mean corpuscular hemoglobin concentration (MCHC) determinationOrdered By: Apolinar Lenz on 05-25-2025 MCHC (RBC) [Mass/Vol] 32.8 g/dL 32-36 [facility] Mean platelet volume determi nationOrdered By: Apolinar Lenz on 05-25-2025 Platelet mean volume (Bld) [Entitic vol] 10.2 fL 6.2-12.0 [facility] Monocyte percentageOrdered B y: Apolinar Lenz on 05-25-2025 Monocytes/100 WBC (Bld) 13.0 % High 0-10 [facility] Neutrophil percentageOrdered By: Apolinar Lenz on 05-25-2025 Neutrophils/100 WBC (Bld) 54.0 % 47-70 [facility] No Panel InformationOrdered By: Apolinar Lenz on 05-25-2025 RAST Comment Comment . [facility] Comment on above: Levels of Specific [...] RBC/100 WBC (Bld) [Ratio] 0 % 0-5 [facility] Platelet countOrdered By: Barajas on 05-25-2025 Platelets (Bld) [#/Vol] 413 10*3/uL 150-450 [facility] Pulmonary Visit Reporton Pulmonary Visit Report [facility] [address] [place] [address] OFFICE VISIT Date of Service: 05/25/25 MR#: [id number] Acct: [id number] Name: CARLENEMAURI Tanesha Rep #: [id number] : 1945 Provider: Dr. Apolinra Lenz DO Age/Sex: 79/F Location: [facility] Status: Signed Assessment and Plan Assessment [...] Visit Reasons: Cough Chief Complaint: cough, sneezing Test Car Driver Required: No Accompanied by: Self Allergies No [...] History (Updated 05/25/25 @ 10:47 by Cathie oTwnsend LPN) current occupational status: employed Smoking Status: [...] clear co (more content not included)... Normal [facility] RBC Auto (Bld) [#/Vol]Ordere d By: Apolinar Lenz on 05-25-2025 RBC (Bld) [#/Vol] 4.73 10*6/uL 4.2-5.4 [place] Serum Peruvian sycamore IgE antibody assay (units/volume)Ordered By: Apolinar Lenz on 05-25-2025 Peruvian [place] IgE Qn (S) <0.10 kU/L Class 0 [facility] Serum Aspergillus fumigatus IgE antibody assay (units/volume)Ordered By: Apolinar Lenz on 05-25-2025 A. fumigatus IgE Qn (S) <0.10 kU/L Class 0 [facility] Serum Bermuda grass IgE anti body assay (units/volume)Ordered By: Apolinar Lenz on 05-25-2025 Bermuda grass IgE Qn (S) <0.10 kU/L Class 0 [facility] Serum Cladosporium herbarum IgE antibody assay (units/volume)Ordered By: Apolinar Lenz on 05-25-2025 C. herbarum IgE Qn (S) <0.10 kU/L Class [address] [facility] Serum Dermatophagoides ptero nyssinus specific IgE antibody assay (units/volume)Ordered By: Apolinar Lenz on 05-25-2025 house dust mite IgE Qn (S) <0.10 kU/L Class 0 [facility] Serum Fraxinus americana IgE antibody assay (units/volume)Ordered By: Apolinar Lenz on 05-25-2025 White Lucas IgE Qn (S) <0.10 kU/L Class 0 [facility] Serum Rumex acetosella IgE a ntibody assay (units/volume)Ordered By: Apolinar eLnz on 05-25-2025 Sheep Od[place] IgE Qn (S) <0.10 kU/L Class 0 [facility] Comment on above: Performed at: [address] [id number] Director: Laura Vallejo MD, Phone: [phone] Serum black walnut IgE antib domonique assay (units/volume)Ordered By: Apolinar Lenz on 05-25-2025 Black [place] IgE Qn (S) <0.10 kU/L Class 0 [facility] Serum cottonwood IgE antibod y assay (units/volume)Ordered By: Apolinar Lenz on 05-25-2025 [place] IgE Qn (S) <0.10 kU/L Class 0 [facility] Serum dog epithelium IgE ant ibody assay (units/volume)Ordered By: Apolinar Lenz on 05-25-2025 Dog epithelium IgE Qn (S) <0.10 kU/L Class 0 [facility] Serum kenan IgE antibody a ssay (units/volume)Ordered By: Apolinar Lenz on 05-25-2025 Kenan IgE Qn (S) <0.10 kU/L Class 0 [facility] Serum white elm IgE antibody assay (units/volume)Ordered By: Apolinar Lenz on 05-25-2025 White Elm IgE Qn (S) <0.10 kU/L Class 0 [facility] Serum white mulberry IgE ant ibody assay (units/volume)Ordered By: Apolinar Lenz on 05-25-2025 White mulberry IgE Qn (S) <0.10 kU/L Class 0 [facility] White blood cell (WBC) count Ordered By: Apolinar Lenz on 05-25-2025 WBC (Bld) [#/Vol] 6.8 10*3/uL 4.4-11.0 [facility] CBC-Complete Blood Cnt No Di ffon 04-11-2025 Erythrocyte distribution width (RBC) [Ratio] 14.0 % Normal 11.6-14.6 [facility] Comment on above: Order Comment: Order Date: 04/11/25 Order Info: [id number] - CBC Order Info: [id number] - SED Performed By: #### L 100.0500 #### [facility] [address] [place], [place], [id number] ([phone] Hematocrit (Bld) [Volume fraction] 41.9 % Normal 37-47 [facility] Comment on above: Order Comment: Order Date: 04/11/25 Order Info: [id number] - CBC Order Info: [id number] - SED Performed By: #### L 100.0500 #### [facility] [address] [place], [address] Hemoglobin (Bld) [Mass/Vol] 13.5 g/dL Normal 12.0-15.0 [facility] Comment on above: Order Comment: Order Date: 04/11/25 Order Info: [id number] - CBC Order Info: [id number] - SED Performed By: #### L 100.0500 #### [facility] [address] [place], [address] MCH (RBC) [Entitic mass] 29.7 pg Normal 27.0-32.0 [facility] Comment on above: Order Comment: Order Date: 04/11/25 Order Info: [id number] - CBC Order Info: [id number] - SED Performed By: #### L 100.0500 #### [facility] [address] [place], [address] MCHC (RBC) [Mass/Vol] 32.2 g/dL Normal 32-36 [facility] Comment on above: Order Comment: Order Date: 04/11/25 Order Info: [id number] - CBC Order Info: [id number] - SED Performed By: #### L 100.0500 #### [facility] [address] [place], [address] MCV (RBC) [Entitic vol] 92.3 fL Normal 81-99 [facility] Comment on above: Order Comment: Order Date: 04/11/25 Order Info: [id number] - CBC Order Info: [id number] - SED Performed By: #### L 100.0500 #### [facility] [address] [place], [address] Platelet mean volume (Bld) [Entitic vol] 11.4 fL Normal 6.2-12.0 [facility] Comment on above: Order Comment: Order Date: 04/11/25 Order Info: [id number] - CBC Order Info: [id number] - SED Performed By: #### L 100.0500 #### [facility] [address] [place], [address] Platelets (Bld) [#/Vol] 440 10*3/uL Normal 150-450 [facility] Comment on above: Order Comment: Order Date: 04/11/25 Order Info: [id number] - CBC Order Info: [id number] - SED Performed By: #### L 100.0500 #### [facility] [address] [place], [address] RBC (Bld) [#/Vol] 4.54 10*6/uL Normal 4.2-5.4 [place] Comment on above: Order Comment: Order Date: 04/11/25 Order Info: [id number] - CBC Order Info: [id number] - SED Performed By: #### L 100.0500 #### [facility] [address] [place], [place], [address] RDW SD 47.4 fl High 35.1-43.9 [facility] Comment on above: Order Comment: Order Date: 04/11/25 Order Info: [id number] - CBC Order Info: [id number] - SED Performed By: #### L 100.0500 #### [facility] [address] [place], [place], [address] (662) WBC (Bld) [#/Vol] 9.7 10*3/uL Normal 4.4-11.0 [facility] Comment on above: Order Comment: Order Date: 04/11/25 Order Info: [id number] - CBC Order Info: [id number] - SED Performed By: #### L 100.0500 #### [facility] [address] [place], [place], [address] Erythrocyte Sed Rateon 04-11 SED RATE 14 mm/hr Normal 0-30 [facility] Comment on above: Order Comment: Order Date: 04/11/25 Order Info: [id number] - CBC Order Info: [id number] - SED Performed By: #### L 101.9900 #### [facility] [address] [place], [place], [address] Erythrocyte distribution wid th ratioOrdered By: Kenneth Meyer on 04-11-2025 Erythrocyte distribution width (RBC) [Ratio] 14.0 % 11.6-14.6 [facility] Erythrocyte distribution wid th standard deviationOrdered By: orr on 04-11-2025 Erythrocyte distribution width (RBC) [Ratio] 47.4 fl High 35.1-43.9 [facility] Erythrocyte sedimentation ra teOrdered By: Kenneth on 04-11-2025 ESR (Bld) [Velocity] 14 mm/h 0-30 [facility] Hematocrit Auto (Bld) [Volum e fraction]Ordered By: Kenneth on 04-11-2025 Hematocrit (Bld) [Volume fraction] 41.9 % 37-47 [facility] Hemoglobin measurementOrdere d By: Kenneth [facility] on 04-11-2025 Hemoglobin (Bld) [Mass/Vol] 13.5 g/dL 12.0-15.0 [facility] MCV (mean corpuscular volume ) determinationOrdered By: Kenneth [facility] on 04-11-2025 MCV (RBC) [Entitic vol] 92.3 fL 81-99 [facility] Mean corpuscular hemoglobin (MCH) determinationOrdered By: [facility] on 04-11-2025 MCH (RBC) [Entitic mass] 29.7 pg 27.0-32.0 [facility] Mean corpuscular hemoglobin concentration (MCHC) determinationOrdered By: [facility] on 04-11-2025 MCHC (RBC) [Mass/Vol] 32.2 g/dL 32-36 [facility] Mean platelet volume determi nationOrdered By: Kenneth [facility] on 04-11-2025 Platelet mean volume (Bld) [Entitic vol] 11.4 fL 6.2-12.0 [facility] Platelet countOrdered By: An gel McMorr on 04-11-2025 Platelets (Bld) [#/Vol] 440 10*3/uL 150-450 [facility] RBC Auto (Bld) [#/Vol]Ordere d By: Kenneth Cheorrow on 04-11-2025 RBC (Bld) [#/Vol] 4.54 10*6/uL 4.2-5.4 [place] White blood cell (WBC) count Ordered By: Kenneth Betsy on 04-11-2025 WBC (Bld) [#/Vol] 9.7 10*3/uL 4.4-11.0 [facility] CNPNon 02-14-2025 ANISA Telephone ([facility]) -- MAURI CONCEPCION ([id number]) 1945 F Date Time Provider Department 02/14/25 AMADA TREVINO [facility] During your visit today, we recorded the following information about you: Kayla Mon LPN 02/14/2025 11:27 AM Signed [facility] office calling asking if patient had chest xray yesterday with her express care visit. Advised radiology closed on Friday. Requested copy of office notes be faxed to [phone], so they can decide if patient needs xray done. Printed and faxed as requested. Allergies As of Date: 02/14/2025 (No Known Allergies) Date Reviewed: 02/13/2025 Reviewed by: Sharla Miller MA - Fully Assessed Reason for Visit: [facility] [Other] Prescriptions as of 02/14/2025 [...] Status:Closed by KAYLA MON on 02/14/25 Normal [facility] Chest PA and Lateralon 02-14 Chest PA and Lateral [facility] [address] [place] [address] Chest PA and Lateral MR#: [id number] Acct: [id number] Name: MAURI CONCEPCION Rep #: [id number] : 1945 F 79 From: Easton alvarez MD PCP: Dr. 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 MD Status: REG CLI Study: Chest PA and Lateral Date of Exam: 02/14/25 Exam# [id number] Ordering Dr: 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 PROCEDURE: CHEST PA [...] either linear atelectasis and/or scarring. Reading Location: [place] [address] CC: Dr. Cedrick aZyas MD Shot Tube Machine Tender: Signed Normal [facility] CNOVon 02-13-2025 [facility] Office Visit ([facility] ) -- MAURI CONCEPCION ([id number]) 1945 F Date Time Provider Department 02/13/25 9:45 AM AMADA TREVINO [facility] During your visit today, we recorded the following information about you: Temperature Pulse Respiration Blood pressure 98.3 degrees 80/minute 16/minute 122/76 Weight 93.4 kg Amada Trevino APRN.TOY DESIGNER 02/13/2025 10:42 AM Signed [facility] Subjective HPI HPI Mauri Almendarez Carlene is a 79 year old female who [...] EXTRACTION HX Bilateral COLONOSCOP W/ OR W/O [facility] SPEC 07/22/2019 Colonoscopy COLONOSCOPY 12/2009 [facility] LIGATE FALLOPIAN TUBE Tubal ligation REMOVE TONSILS/ADENOIDS,<12 [...] - BENZONATATE 100 MG CAPSULE Amada Trevino APRN.TOY DESIGNER Differential Diagnoses - pneumonia is more likely [...] 2 ca (more content not included)... Normal [facility] Visit Reporton 1 12-09-2023 Urgent Care Visit Report [facility] [address], [address] [place] [address] OFFICE VISIT Date of Service: 10/08/24 MR#: [id number] Acct: [id number] Name: MAURI CONCEPCION Rep #: [id number] : 1945 Provider: ALCIDES Parham Age/Sex: 79/F Location[facility] Status: Signed Intake Vital Signs 05/16/24 08:09 [...] Exam Const General: cooperative and well developed HENCO Head: normal to inspection and atraumatic Ears: [...] past year?: No 10/08/24 1736 Date Molina Parkinson Signature: Date (if applicable) CC: Normal [facility] US RENAL ONLYon 04-09-2019 US RENAL ONLY [...] or myelolipoma. 2. No hydronephrosis or nephrolithiasis. [employer] Workstation ID: [id number] Dictated by: PAOLO PAK on FriApr 09, 2019 8:47:45 AM EDT Transcribed by: JOY PARKER on FriApr 09, 2019 9:05:39 AM EDT Finalized by: PAOLO PAK on FriApr 09, 2019 7:32:12 PM EDT [facility] Comment on above: Order Comment: ORDER CONVERSION [...] or myelolipoma. 2. No hydronephrosis or nephrolithiasis. [employer] Workstation ID: [id number] [facility] EXAMINATION: US SHANITA L ONLY HISTORY: [...] 03/19/2017 (3.8 x 3.0 x 3.7 cm). [facility], Rad In Fu ji Speechq - [...] or myelolipoma. 2. No hydronephrosis or nephrolithiasis. [employer] Workstation ID: [id number] [facility] US RENAL RETROPERITONEALon 0 03-19-2018 US RENAL RETROPERITONEAL Final ReportAccession No: [id number] Performed: Mar 19 2018 9:29AMExamination: US RENAL RETROPERITONEALCLINICAL INFORMATION: Follow up right adrenal mass.COMPARISON STUDY: 03/19/2017.TECHNIQUE: Real-time renal loza scale and Color Doppler evaluation ofbilateralkidneys was performed.FINDINGS: The right kidney measures 10.8 x 5.5 x 6.0 cm and the urtryniecr76.5 x 5.3 x 6.1 cm in size.There [...] MATY BUTTS M.D.Trans: dcarr : cc: Normal [facility] Vital Signs Date Time Vital Sign Value Performing Clinician Faci lity 07-29-2025 05:30-0400 Body mass index (BMI) [Ratio] 33.7 kg/m2 Dr. 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 MD Work Phone: 6(581)882-579040 [place] [address] 07-29-2025 05:30-0400 Body temperature 97.5 [degF] Dr. 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 MD Work Phone: 1(044)332-708994 [place] [address] 07-29-2025 05:30-0400 Body weight 94.[address] 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 MD Work Phone: 6(078)612-434140 [place] [address] 07-29-2025 05:30-0400 Diastolic blood pressure 80 mm[Hg] Dr. 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 MD Work Phone: 4(639)839-919994 [place] [address] 07-29-2025 05:30-0400 Heart rate 68 /min Dr. 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 MD Work Phone: 8(311)676-009394 [place] [address] 07-29-2025 05:30-0400 Respiratory rate 20 /min Dr. 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 MD Work Phone: 1(597)923-604594 [place] [address] 07-29-2025 05:30-0400 SaO2% (BldA) [Mass fraction] 94 % Dr. 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 MD Work Phone: 9(642)845-514294 [place] [address] 07-29-2025 05:30-0400 Systolic blood pressure 166 mm[Hg] Dr. 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 MD Work Phone: 5(570)167-273794 [place] [address] 06-24-2025 05:38-0400 Body height 167.[address] 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 MD Work Phone: 9(915)876-092794 [place] [address] 06-24-2025 05:38-0400 Body mass index (BMI) [Ratio] 33.5 kg/m2 Dr. 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 MD Work Phone: 7(305)337-237494 [place] [address] 06-24-2025 05:38-0400 Body temperature 96.3 [degF] Dr. 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 MD Work Phone: 0(972)702-252894 [place] [address] 06-24-2025 05:38-0400 Body weight 94.[address] 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 MD Work Phone: [facility] 06-24-2025 05:38-0400 Diastolic blood pressure 78 mm[Hg] Dr. 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 MD Work Phone: [facility] 06-24-2025 05:38-0400 Heart rate 71 /min Dr. 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 MD Work Phone: 4(814)164-470740 [place] [address] 06-24-2025 05:38-0400 Respiratory rate 20 /min Dr. 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 MD Work Phone: 8(556)261-868830 [address] 06-24-2025 05:38-0400 SaO2% (BldA) [Mass fraction] 97 % Dr. 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 MD Work Phone: 0(484)174-399340 [place] [address] 06-24-2025 05:38-0400 Systolic blood pressure 152 mm[Hg] Dr. 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 MD Work Phone: 4(789)765-655330 [address] 05-25-2025 07:31-0400 Body height 167.[address] 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 MD Work Phone: 1(991)852-993730 [address] 05-25-2025 07:31-0400 Body mass index (BMI) [Ratio] 33.4 kg/m2 Dr. 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 MD Work Phone: 7(742)396-393794 [place] [address] 05-25-2025 07:31-0400 Body temperature 97.4 [degF] Dr. 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 MD Work Phone: 1(502)853-068340 [place] [address] 05-25-2025 07:31-0400 Body weight 93.[address] 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 MD Work Phone: 2(073)778-166330 [address] 05-25-2025 07:31-0400 Diastolic blood pressure 82 mm[Hg] Dr. 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 MD Work Phone: 0(164)350-822840 [place] [address] 05-25-2025 07:31-0400 Heart rate 67 /min Dr. 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 MD Work Phone: 9(742)605-151240 [place] [address] 05-25-2025 07:31-0400 Respiratory rate 18 /min Dr. 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 MD Work Phone: [facility] 05-25-2025 07:31-0400 SaO2% (BldA) [Mass fraction] 97 % Dr. 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 MD Work Phone: [facility] 05-25-2025 07:31-0400 Systolic blood pressure 165 mm[Hg] Dr. 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 MD Work Phone: [facility] 02-13-2025 09:49-0400 Body mass index (BMI) [Ratio] 33.23 kg/m2 Amada Trevino FORMULA TECHNICIAN.TOY DESIGNER Work Phone: [facility] 02-13-2025 09:49-0400 Body temperature 98.29 [degF] Amada Trevino FORMULA TECHNICIAN.TOY DESIGNER Work Phone: [facility] 02-13-2025 09:49-0400 Body weight 93.4 kg Amada Trevino FORMULA TECHNICIAN.TOY DESIGNER Work Phone: [facility] 02-13-2025 09:49-0400 Diastolic blood pressure 76 mm[Hg] Amada Trevino FORMULA TECHNICIAN.TOY DESIGNER Work Phone: [facility] 02-13-2025 09:49-0400 Heart rate 80 /min Amada Trevino FORMULA TECHNICIAN.TOY DESIGNER Work Phone: [facility] 02-13-2025 09:49-0400 Respiratory rate 16 /min Amada Trevino FORMULA TECHNICIAN.TOY DESIGNER Work Phone: [facility] 02-13-2025 09:49-0400 SaO2% (BldA) [Mass fraction] 97 % Amada Trevino FORMULA TECHNICIAN.TOY DESIGNER Work Phone: [facility] 02-13-2025 09:49-0400 Systolic blood pressure 122 mm[Hg] Amada Trevino FORMULA TECHNICIAN.TOY DESIGNER Work Phone: [facility] Encounters Encounter Date Encounter Type Care Provider Facility Start: 09-06-2025 End: 09-06-2025 ambulatory 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 [facility] Start: 08-29-2025 End: 08-29-2025 ambulatory 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 Facility:[facility] Start: 07-29-2025 End: 07-29-2025 Patient encounter procedure ADRIÁN Michael -[facility] Work Phone: Start: 07-29-2025 End: 07-29-[address] 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 MD Work Phone: -[facility] Start: 07-26-2025 End: 07-26-2025 ambulatory LEROY MASON Facility:[facility] Start: 06-24-2025 End: 06-24-2025 Patient encounter procedure X RAY TECHNOLOGIST Krista Michael -[facility] Work Phone: Start: 06-24-2025 End: 06-24-[address] 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 MD Work Phone: [facility] Start: 06-06-2025 End: 06-06-[address] 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 MD Work Phone: -Pulmonary Services/Neurology Start: 06-06-2025 End: 06-06-[address] Apolinar Lenz DO -Pulmonary Services/Neurology Work Phone: Start: 06-06-2025 End: 06-06-2025 ambulatory Apolinar Lenz Facility:[facility] Start: 05-25-2025 End: 05-25-[address] Apolinar Lenz DO -[facility] Work Phone: Start: 05-25-2025 End: 05-25-[address] 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 MD Work Phone: [facility] Start: 05-25-2025 End: 05-25-2025 ambulatory [facility] Facility:[facility] Start: 04-11-2025 End: 04-11-[address] 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 MD Work Phone: [facility] Work Phone: Start: 04-11-2025 End: 04-11-2025 Patient encounter procedure Kenneth Meyer X RAY TECHNOLOGIST-C -[facility] [place] Work Phone: Start: 04-11-2025 End: 04-11-2025 ambulatory Kenneth Meyer X RAY TECHNOLOGIST Facility:[facility] Start: 02-14-2025 End: 02-14-2025 Telephone encounter Amada King DEVONTE.TOY DESIGNER Work Phone: [facility] Comment on above: [facility] request records Start: 02-14-2025 End: 02-14-[address] 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 MD -Rad[facility] [place] Work Phone: Start: 02-13-2025 End: 02-13-2025 Patient encounter procedure Amada Trevino APRN.TOY DESIGNER Work Phone: [facility] Comment on above: Lower resp. tract in fection (Primary Dx) Start: 02-13-2025 End: 02-14-2025 ambulatory AMADA TREVINO Facility:[facility] Start: 10-08-2024 End: 10-08-2024 ambulatory 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 Facility:[facility] Start: 01-06-2024 End: 01-06-2024 ambulatory [facility] Work Phone: Start: 01-06-2024 End: 01-06-2024 Patient encounter procedure [facility]-Radiology, [place] Work Phone: Start: 03-05-2023 End: 03-05-2023 ambulatory [facility] Work Phone: Start: 03-05-2023 End: 03-05-2023 Patient encounter procedure [facility]-Outpatient Breast Imaging Start: 12-02-2020 End: 12-02-2020 Orders Only Sharla Cuevas Work Phone: [facility] Start: 04-09-2019 End: 04-10-2019 [facility] Start: 04-09-2019 End: 04-09-2019 Patient encounter procedure Saundra Corral Work Phone: [facility] Ultrasound Comment on above: Adrenal mass (HCC) Start: 03-19-2018 Ambulatory Saundra Corral Facility: [facility] Start: 03-19-2018 End: 03-19-2018 Ambulatory Saundra Corral Work Phone: [facility] Procedures Date Procedure Procedure Detail Performing Clinician Start: 05-25-2025 Alternaria alternata DANNIELLE Zayas MD Work Phone: Start: 05-25-[address] 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 MD Work Phone: Start: 05-25-2025 Box elder DANNIELLE Zayas MD Work Phone: Start: 05-25-2025 Cat dander DANNIELLE Zayas MD Work Phone: Start: 05-25-2025 Vanderbilt RASTanesha Zayas MD Work Phone: Start: 05-25-[address] 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 MD Work Phone: Start: 05-25-2025 Common silver birch RAST Dr. 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 MD Work Phone: Start: 05-25-2025 House dust mite (Df) RAST Dr. 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 MD Work Phone: Start: 05-25-2025 Mouse urine proteins RAST Dr. 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 MD Work Phone: Start: 05-25-[address] Alysha Zayas MD Work Phone: Start: 05-25-2025 Penicillium chrysogenum DANNIELLE Zayas MD Work Phone: Start: 05-25-[address] Sander Zayas MD Work Phone: Start: 05-25-[address] Flor Zayas MD Work Phone: Start: 05-25-[address] Flor Zayas MD Work Phone: Start: 02-14-2025 X-ray of chest, PA a nd lateral views Dr. 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 MD Work Phone: Start: 01-06-2024 Radiography of ankle Start: 03-05-2023 Screening mammography Start: 04-09-2019 Us retroperitoneal r eal time w/image limited External Transcribed Plan of Treatment Date Care Activity Detail Author Start: 06-06-2025 Measurement of respiratory function [facility] Start: 10-27-2024 Advance Directive Discussion Advance Directive Discussion [facility] Start: 06-27-2024 Covid-19 Vaccine ( season) Covid-19 Vaccine ( season) [facility] Start: 06-27-2024 Influenza [facility] Start: 05-25-2024 Urine microalbumin profile DTaP,Tdap,Td Vaccine (2 - Td or Tdap) [facility] Start: 2022 RSV Vaccine (1 - 1-dose 75+ series) RSV Vaccine (1 - 1-dose 75+ series) [facility] Start: 06-27-2020 Influenza vaccination given Sequential Influenza Vaccine (#1) [facility] Start: 06-27-2019 Influenza vaccination given SEQUENTIAL INFLUENZA VACCINE (Season Ended) [facility] Start: 2012 Pneumococcal vaccination PNEUMOCOCCAL VACCINE AGE 65+ (1 of 2 - PCV13) [facility] Start: 09-26-2009 Diabetes Screening Diabetes Screening [facility] Start: 1997 Administration of herpes zoster vaccine Zoster Vaccines (1 of 2) [facility] Start: 1997 Screening for malignant neoplasm of colon [facility] Start: 1997 Shingrix Vaccine (1 of 2) Shingrix Vaccine (1 of 2) [facility] Start: 1965 Anxiety Screening Anxiety Screening [facility] Start: 1965 Depression Screening Depression Screening [facility] Start: 1965 Hepatitis C antibody, confirmatory test Hepatitis C Screening [facility] Start: 1965 Hepatitis C screening Hepatitis C Screening [facility] Start: 1963 COVID-19 Vaccine (1 of 2) COVID-19 Vaccine (1 of 2) [facility] Start: 1959 Adolescent depression screening assessment Depression Screening (PHQ9) [facility] Start: 1950 History and physical examination, annual for health maintenance Wellness Visit [facility] Start: 1947 Fall risk assessment Falls Risk Assessment [facility] Start: 1945 Hepatitis C antibody, confirmatory test [facility] Start: 1945 Protein mass conc Mammogram [facility] Start: 1945 Screening for malignant neoplasm of colon Colorectal Cancer Screening: Colonoscopy [facility] Start: 1945 Screening for osteoporosis Dexa Scan [facility] Start: 1945 Screening mammography Mammogram [facility] Start: 1945 Tetanus vaccination [facility] CBC W Auto Different ial panel - Blood [facility] IgE [Units/volume] i n Serum or Plasma [facility] Measurement of respiratory function [facility] Immunizations Immunization Date Immunization Notes Care Provider Fa [facility] 09-18-2021 influenza virus vacc ine, unspecified formulation Amada Trevino FORMULA TECHNICIAN.TOY DESIGNER Work Phone: [facility] Payers Date Payer Category Payer Self-pay [id number] 2015 Private Health Insurance HUMANA HUMANA OTHER AFTER MEDICARE xxxxxxxxx 2015-Present xxxxxxxxx [id number] 2015 Private Health Insurance HUMANA HUMANA OTHER AFTER MEDICARE [id number] 2015-Present [id number] 2015 Private Health Insurance HUMANA [id number] 2015 Private Health Insurance [id number] 2012 Medicare MEDICARE MEDICAR E PART A & B xxxxxxxxxxx 2012-Present [place] xxxxxxxxxxx [id number] 2012 Medicare MEDICARE MEDICAR E PART A & B [id number] 2012-Present [place] [id number] 2012 Medicare MEDICARE [id number] 2012 Medicare [id number] 1945 Unknown [id number] Medicare [id number] Unknown [id number] Unknown [id number] .462 Unknown [id number] .462 Unknown [id number] .462 Unknown [id number] .462 Unknown [id number] .462 Unknown [id number] .462 Unknown [id number] .462 Unknown [id number] .462 Unknown [id number] .462 Unknown [id number] .462 Social History Date Type Detail Facility Tobacco smoking stat [facility] Unknown if ever smoked [facility] Start: 1945 Sex Assigned At Not on file [facility] Start: 09-01-2022 Tobacco smoking stat [facility] Unknown if ever smoked [facility] Start: 1945 Sex Assigned At Female [facility] Start: 07-22-2019 End: 05-25-2025 Tobacco smoking status NHIS Ex-smoker [facility] Start: 07-22-1969 End: 07-22-1989 History of tobacco use Current smoker [facility] Start: 07-22-1969 End: 07-22-1989 History of tobacco use Cigarette Smoker [facility] Start: 07-22-2019 End: 10-01-2020 Cigarettes smoked current (pack per day) - Reported 1 [facility] Start: 07-22-2019 Tobacco use and exposure Smokeless tobacco non-user [facility] Start: 07-22-2019 Alcoholic beverage intake Ex-drinker (finding) [facility] Start: 07-22-2019 End: 10-01-2020 Tobacco use panel [facility] National Score (1-10 0), lower number is lower risk Not on file [facility] Clinical Notes 02-13-2025 to 07-26-2025 Note Date & Type Note Facility 07-26-2025 Note HNO ID: [id number] Author: LEROY MASON APRN.TOY DESIGNER Service: ? Author Type: Nurse Practitioner Type: Progress Notes Filed: 07/26/2025 17:21 Note Text: URGENT CARE JYOTI Concepcion is a 80 year old female. Patient presents with: Cough: Cough, chest congestion and chills x 2 days HPI The patient is a 80-year-old female presenting with a 2-day history of URI symptoms. Upper Respiratory Infection: - Onset of symptoms 2 days ago. - Reports feeling awful with no energy. - Denies fever, body aches, or chest congestion. - Concerned about progression to chest involvement, as experienced in previous episodes. - Similar episodes occurred in January, February, and March, with symptoms resolving and recurring. - Previous evaluations by Dr. Ramires (ENT) and Dr. Lenz (Booking Agent) found no abnormalities. - Denies known exposure to sick contacts. - No history of seasonal allergies; previous allergy testing by Dr. Ramires was negative. - Former smoker; pulmonary function test by Dr. Lenz showed no evidence of COPD. - Denies current use of Flonase or Zyrtec. - Only medication taken is Prevagen. Review of Systems Constitutional: (+) malaise, (+) fatigue, (-) fever Musculoskeletal: (-) myalgia Respiratory: (-) chest congestion (-) nasal congestion (-) sore throat PAST MEDICAL HISTORY Diagnosis Date - Disorder of bone and cartilage, unspecified - PMH - PAST MEDICAL HISTORY OF mass on adrenal gland - Snoring PAST SURGICAL HISTORY Procedure Laterality Date - APPENDECTOMY - CATARACT EXTRACTION HX Bilateral - COLONOSCOPY 12/2009 [facility] - COLONOSCOPY FLX DX W/COLLJ SPEC WHEN PFRMD 07/22/2019 Colonoscopy - LIG/TRNSXJ FLP TUBE ABDL/VAG APPR UNI/BI Tubal ligation - REMOVE TONSILS/ADENOIDS,<12 Y/O ALLERGIES Patient has no known allergies. MEDICATIONS - benzonatate (TESSALON PERLE) 100 mg capsule Take 2 capsules by mouth three times a day as needed. - triamcinolone acetonide (NASACORT ALLERGY) 55 mcg nasal inhaler Use 2 sprays in each nostril once daily. - doxycycline hyclate (VIBRAMYCIN) 100 mg capsule Take 1 capsule by mouth two times a day for 7 days. - cetirizine (ZYRTEC) 10 mg tablet Take 1 tablet by mouth once daily. - vitamin E mixed/tocotrienol (VITAMIN E COMPLEX ORAL) Take by mouth once daily. (Patient not taking: Reported on 02/13/2025) - ascorbic acid (VITAMIN C ORAL) Take by mouth once daily. (Patient not taking: Reported on 02/13/2025) - CALCIUM CARBONATE/VITAMIN D3 (CALCIUM 600 + D ORAL) Take 1 tablet by mouth once daily. (Patient not taking: Reported on 02/13/2025) - PREVACID 30 MG CAP Take one(1) capsule twice daily. (Patient not taking: Reported on 07/26/2025) - DAILY MULTIVITAMIN TAB Take one(1) tablet daily. (Patient not taking: Reported on 02/13/2025) FAMILY HISTORY Problem Relation Age of Onset - Cancer Father throat - Breast Cancer Paternal Grandmother - other (lymphoma) Mother SOCIAL HISTORY[1] Objective BP 132/82 Pulse 71 Temp 36.8 ?C (98.2 ?F) (Tympanic) Resp 18 Wt 96.2 kg (212 lb 1.3 oz) SpO2 99% BMI 34.23 kg/m? Physical Exam Constitutional: General: She is not in acute distress. Appearance: Normal appearance. She is normal weight. She is not ill-appearing or toxic-appearing. HENT: Head: Normocephalic and atraumatic. Right Ear: Tympanic membrane, ear canal and external ear normal. Left Ear: Tympanic membrane, ear canal and external ear normal. Nose: Congestion and rhinorrhea present. Mouth/Throat: Mouth: Mucous membranes are moist. Pharynx: No oropharyngeal exudate or posterior oropharyngeal erythema. Eyes: Extraocular Movements: Extraocular movements intact. Conjunctiva/sclera: Conjunctivae normal. Pupils: Pupils are equal, round, and reactive to light. Cardiovascular: Rate and Rhythm: Normal rate and regular rhythm. Pulses: Normal pulses. Heart sounds: Normal heart sounds. Pulmonary: Effort: Pulmonary effort is normal. Breath sounds: Normal breath sounds. Lymphadenopathy: Cervical: No cervical adenopathy. Neurological: Mental Status: She is alert. { 1. Viral URI with cough (J06.9) - Symptoms present for 2 days; no current chest congestion or fever. - Previous episodes in January, February, and March; prior workup by ENT and pulmonology unremarkable. - Discussed rationale for delayed antibiotic prescribing; - Provided prescription for Tesdaydayon Perles for cough management. - Provided prescription for Zyrtec and Nasacort for 90 days. - Educated patient on appropriate use of antibiotics and importance of reserving them for clinically indicated situations. Advised to monitor symptoms and use delayed prescriptions only if condition worsens. - Encouraged to return to clinic or seek care if symptoms progress. Patient has called pulmonolgist and PCP without call back today. - No clinical indicated of chest xray. - ER if chest pain or shortness of breath. and Recor (more content not included)... [facility] 05-25-2025 Evaluation note Diagnosis Onset Date Resolution Cough resolved May 25 10:34am [facility] Work Phone: 1(897) 659-726307-30-2025 Evaluation note* Diagnosis Onset Date Resolution Status Admit Date Cough resolved May 25 10:34am Cough resolved June 24, 2 025 10:48am [facility] Work Phone: 1(194) 526-202407-30-2025 Evaluation note* Diagnosis Onset Date Resolution Status Admit Date Cough acute May 25 10:34am Cough acute June 24, 2 025 10:48am Cough acute July 29, 025 10:45am [facility] Work Phone: 1(128) 824-373904-21-2025 Telephone encounter Note* Telephone Encounter - Kayla Mon LPN - 02/14/2025 11:24 [facility] with her express care visit. Advised radiology closed on Friday. Requested copy of office notes be faxed to [phone], so they can decide if patient needs xray done. Printed and faxed as requested. [facility]04-21-2025 Miscellaneous Notes* Telephone Encounter - Kayla Mon LPN - 02/14/2025 11:24 AM EDT [facility] office calling asking if patient had chest xray yesterday with her express care visit. Advised radiology closed on Friday. Requested copy of office notes be faxed to [phone], so they can decide if patient needs xray done. Printed and faxed as requested. [facility]25 NoteHNO ID: [id number] Author: AMADA TREVINO APRN.TOY DESIGNER Service: ? Author Type: Nurse Practitioner Type: Progress Notes Filed: 02/13/2025 10:42 Note Text: [facility] Subjective HPI HPI Mauri Concepcion [...] EXTRACTION HX Bilateral COLONOSCOP W/ OR W/O [facility] SPEC 07/22/2019 Colonoscopy COLONOSCOPY [facility]2009 [facility] [...] available today. Disposition The patient was discharged. [facility] History of Present illness Narrative* Amada Trevino APRN.CNP - 02/13/2025 9:51 AM EDT [facility] Subjective HPI HPI Mauri Concepcion [...] EXTRACTION HX Bilateral COLONOSCOP W/ OR W/O [facility] SPEC 07/22/2019 Colonoscopy COLONOSCOPY 12/2009 [facility] LIGATE FALLOPIAN TUBE Tubal ligation REMOVE TONSILS/ADENOIDS,<12 Y/O ALLERGIES Patient has no known allergies. MEDICATIONS vitamin E mixed/tocotrienol (VITAMIN E COMPLEX ORAL) Take by mouth once daily. (Patient not taking:Reported on 02/13/2025) ascorbic acid (VITAMIN C ORAL) Take by mouth once daily. (Patient not taking: Reported on 02/13/2025) CALCIUM CARBONATE/VITAMIN D3 (CALCIUM 600 + D ORAL) Take 1 tablet by mouth once daily. (Patient nottaking: Reported on 02/13/2025) PREVACID 30 MG CAP [...] discharge, ear pain, sinus pressure, sinus pain andsore throat. Eyes: Negative for discharge and redness. [...] patient was discharged. Procedures [facility] noteNo assessment information availableWBu[facility] Work Phone: Evaluation note* Diagnosis Lower resp. tract infection- Primary Other diseases of respiratory system, not elsewhere classified documented in this encounter [facility] note* Diagnosis Onset Date Resolution Status Admit Date Cough acute May 25 10:34am [facility] Work Phone: Reason for referral (narrative)No reason for referral information availableWBucyrus [facility] Work Phone: Summary Purpose Family History No Family History Records Found Relationship Condition Age at Onset Recorded Date/T caleb Not Specified Malignant neoplasm Unknown Relationship Condition Age at Onset Recorded Date/T caleb mother Malignant neoplasm Unknown father Malignant neoplasm Unknown brother Malignant neoplasm Unknown sister Malignant neoplasm Unknown Advance Directives No Advanced Directives Records FoundDocuments on File Type Date Recorded Patient Stna Expl anation Advance Directives and Livin g Will 04/09/2019 7:22 AM Documents on File Type Date Recorded Patient Stna Expl anation Advance Directives and Livin g Will 04/09/2019 7:22 AM Advance Directive Response Recorded Date/ Time Living Will No July 02 019 12:35pm Power of District Sales Leader No July 02, 2019 12:35pm Reason for Referral Status Reason Specialty Diagnoses / Procedures Referred By Contact Referred To Contact Pending Review Radiology Diagnoses Adrenal mass (HCC) Procedures US Renal Only Saundra Corral MD [address] [place] [address] Assessments Diagnosis Adrenal mass (HCC) Unspecified disorder [...] Date Cough May 25, 2025 10:3 4am Chief Complaint Admit Date EORDER- CXR February 14, 2025 1:1 6pm EORDERS April 11, 2025 3:57 pm Cough May 25, 2025 10:3 4am R05.9 - Cough, unspecified June 06, 2025 6:28am Chief Complaint Admit Date EORDERS April 11, 2025 3:57 pm Cough May 25, 2025 10:3 4am R05.9 - Cough, unspecified June 06, 2025 6:28am 1 M FU June 24, 2025 10 :48am Reason for Visit Admit Date Cough May 25, 2025 10:3 4am Cough June 24, 2025 10 :48am Chief Complaint Admit Date EORDERS April 11, 2025 3:57 pm Cough May 25, 2025 10:3 4am R05.9 - Cough, unspecified June 06, 2025 6:28am 1 M FU June 24, 2025 10 :48am Acute- Sick July 29, 2025 10 :45am Reason for Visit Admit Date Cough May 25, 2025 10:3 4am Cough June 24, 2025 10 :48am Cough July 29, 2025 10 :45am Additional Source Comments INFORMATION SOURCE (unrecogn ized section and content) DATE CREATED AUTHOR 04/15/2018 [facility] DATE CREATED AUTHOR AUTHOR'S ORGANIZ ATION 04/10/2019 [facility] DATE CREATED AUTHOR AUTHOR'S ORGANIZ ATION 08/01/2025 [facility] DATE CREATED AUTHOR AUTHOR'S ORGANIZ ATION 09/08/2025 [facility] Reason for Visit (unrecogniz ed section and content) Status Reason Specialty Diagnoses / Procedures Referred By Contact Referred To Contact Pending Review Radiology Diagnoses Adrenal mass (HCC) Procedures US Renal Only Saundra Corral MD [address] [place] [address] Reason Comments Sinus Problem sinus pressure, drai nage, chest congestion, cough x 3-4 days Reason Comments [facility] s Care Teams (unrecognized sec [...] MD Attending Provider, Referring Prov ider Active Serology Teacher Relationship Specialty Start Date End Date 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 MD [address] [place] [id number] PCP - General Family Medicine 02/13/25 Serology Teacher Relationship Specialty Start Date End Date 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 MD [address] [place] [address] PCP - General Family Medicine 02/13/25 Team [...] 2025 End: April 11, 2025 Kenneth Meyer X RAY TECHNOLOGIST, X RAY TECHNOLOGIST-C Attending Provider Active Start: April 11, 2025 End: April 11, 2025 Kenneth Meyer X RAY TECHNOLOGIST, X RAY TECHNOLOGIST-C Referring Provider Active Start: April 11, 2025 [...] 2025 End: April 11, 2025 Kenneth Meyer X RAY TECHNOLOGIST, X RAY TECHNOLOGIST-C Attending Provider Active Start: April 11, 2025 End: April 11, 2025 Kenneth Meyer X RAY TECHNOLOGIST, X RAY TECHNOLOGIST-C Referring Provider Active Start: April 11, 2025 [...] 2025 End: May 25, 2025 Team Status: Inactive Member Role/Relationship Status Dates Dr. 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 MD Primary Care Provider Acti ve Start: June 06, 2025 End: June 06, 2025 Dr. Apolinar Lenz DO Attending Provider Active S tart: June 06, 2025 End: June 06, 2025 Dr. Apolinar Lenz DO Referring Provider Active S tart: June 06, 2025 End: June 06, 2025 Team Status: Inactive Member Role/Relationship Status Dates Dr. 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 MD Primary Care Provider Acti ve Start: April 11, 2025 End: April 11, 2025 Kenneth Meyer X RAY TECHNOLOGIST, X RAY TECHNOLOGIST-C Attending Provider Active Start: April 11, 2025 End: April 11, 2025 Kenneth Meyer X RAY TECHNOLOGIST, X RAY TECHNOLOGIST-C Referring Provider Active Start: April 11, 2025 [...] 2025 End: May 25, 2025 Team Status: Inactive Member Role/Relationship Status Dates Dr. 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 MD Primary Care Provider Acti ve Start: May 25, 2025 End: May 25, 2025 Dr. Apolinar Lenz DO Attending Provider Active S tart: May 25, 2025 End: May 25, 2025 Dr. Apolinar Lenz DO Referring Provider Active S tart: May 25, 2025 End: May 25, 2025 Team Status: Inactive Member Role/Relationship Status Dates Dr. 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 MD Primary Care Provider Acti ve Start: June 06, 2025 End: June 06, 2025 Dr. Apolinar Lenz DO Attending Provider Active S tart: June 06, 2025 End: June 06, 2025 Dr. Apolinar Lenz DO Referring Provider Active S tart: June 06, 2025 End: June 06, 2025 Team Status: Inactive Member Role/Relationship Status Dates Dr. 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 MD Primary Care Provider Acti ve Start: June 24, 2025 End: June 24, 2025 Dr. 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 MD Referring Provider Active Start: June 24, 2025 End: June 24, 2025 Krista Michael NP-C Attending Provider Active Start: June 24, 2025 End: June 24, 2025 Team Status: Active Member Role/Relationship Status Dates Dr. 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 MD Primary care physician Act mak Team Status: Inactive Member Role/Relationship Status Dates Dr. 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 MD Primary care physician Act mak Start: April 11, 2025 End: April 11, 2025 Kenneth Meyer X RAY TECHNOLOGIST, X RAY TECHNOLOGIST-C Attending physician Active Start: April 11, 2025 End: April 11, 2025 Kenneth Meyer X RAY TECHNOLOGIST, X RAY TECHNOLOGIST-C Referring Provider Active Start: April 11, 2025 End: April 11, 2025 Team Status: Inactive Member Role/Relationship Status Dates Dr. 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 MD Primary care physician Act mak Start: May 25, 2025 End: May 25, 2025 Dr. 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 MD Referring Provider Active Start: May 25, 2025 End: May 25, 2025 Dr. Apolinar Lenz DO Attending physician Active Start: May 25, 2025 End: May 25, 2025 Team Status: Inactive Member Role/Relationship Status Dates Dr. 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 MD Primary care physician Act mak Start: May 25, 2025 End: May 25, 2025 Dr. Apolinar Lenz DO Attending physician Active Start: May 25, 2025 End: May 25, 2025 Dr. Apolinar Lenz DO Referring Provider Active S tart: May 25, 2025 End: May 25, 2025 Team Status: Inactive Member Role/Relationship Status Dates Dr. 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 MD Primary care physician Act mak Start: June 06, 2025 End: June 06, 2025 Dr. Apolinar Lenz DO Attending physician Active Start: June 06, 2025 End: June 06, 2025 Dr. Apolinar Lenz DO Referring Provider Active S tart: June 06, 2025 End: June 06, 2025 Team Status: Inactive Member Role/Relationship Status Dates Dr. 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 MD Primary care physician Act mak Start: June 24, 2025 End: June 24, 2025 Dr. 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 MD Referring Provider Active Start: June 24, 2025 End: June 24, 2025 MALCOML Solomon Attending physician Active Start: June 24, 2025 End: June 24, 2025 Team Status: Inactive Member Role/Relationship Status Dates Dr. 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 MD Primary care physician Act mak Start: July 29, 2025 End: July 29, 2025 Dr. 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 MD Referring Provider Active Start: July 29, 2025 End: July 29, 2025 MALCOLM Solomon Attending physician Active Start: July 29, 2025 End: July 29, 2025 Goals (unrecognized section and content) Goals [...] this informatio n is protected by the [facility] Confidentiality of Alcohol and Drug Abuse Patient Records regulations: The Federal rules restrict any use of the information to criminally investigate or prosecute any alcohol or drug abuse patient.[facility] Center[facility] the event this information is protected by the Federal Confidentiality of Alcohol and Drug Abuse Patient Records regulations: The Federal rules restrict any use of the information to criminally investigate or prosecute any alcohol or drug abuse patient.[facility] FOR RECORDS PERTAINING TO PATIENTS WHO ARE [...] BE BASED ON THE PRIMARY CLINICAL RECORDS. [facility] [employer] [facility]. provides no warranty or guarantee of the accuracy or completeness of information in this document.
[2025-09-08 10:30] LABS: Hematocrit 44.8 % (37-47); Hemoglobin 14.2 g/dL (12.0-15.0); Mean Corp Hgb Conc 31.7 g/dL (32-36); Mean Corpuscular Volume 92.4 fL (81-99); Mean Platelet Vol. 11.0 fl (6.2-12.0); Platelet Count 457 K/mm3 (150-450); RBC Distribution Width CV 13.6 % (11.6-14.6); RBC Distribution Width SD 46.6 fl (35.1-43.9); Red Blood Count 4.85 M/mm3 (4.2-5.4); White Blood Count 5.7 K/mm3 (4.4-11.0)
[2025-09-08 12:01] LABS: AST(SGOT) 19 U/L (<=31); Alanine Aminotransfer ALT/SGPT 14 U/L (<=34); Albumin, Serum 4.2 g/dL (3.4-4.8); Alkaline Phosphatase 67 U/L (35-104); Anion Gap 10 (5-15); BUN 17 mg/dL (4-19); BUN/Creat Ratio 24.0 RATIO (10-20); Calcium,Total 9.8 mg/dL (7.6-11.0); Carbon Dioxide 26.5 mmol/L (21.0-32.0); Chloride 104 mmol/L (98-108); Cholesterol 260 mg/dL (<=200); Globulin 3.2 g/dL (2.2-4.2); Glucose 102 mg/dL (70-99); Low Density Lipoprotein Calc. 180 mg/dL; Potassium 4.1 mmol/L (3.3-5.1); Pro- Brain NATRIURETIC PEPTIDE 138 pg/mL (<=1800); Triglycerides 96 mg/dL; Very Low Density Lipoprotein 19 mg/dL (5-40); Vitamin D,25 Hydroxy 41.3 ng/mL (30-100); cholesterol:hdl ratio screen 4.07
== END | disposition home or self-care (01) ==
LOC: MTLAB 07:05
PROVIDERS: PCP Family Medicine; Referring Provider Family Medicine; Visit Provider Family Medicine
DX: R06.00 Dyspnea, unspecified (principal); E78.5 Hyperlipidemia, unspecified
CPT/HCPCS: 36415; 80053; 80061; 82306; 83880; 84443; 85027

== ENCOUNTER → 2025-09-15 | Outpatient (CLI) | payer MEDICARE, OTHER, SELFPAY ==
--- NOTE | 2025-09-15 09:57 | ECHOD_ITS ---
Reason For Study Reason For Study: SOB Procedure This was a 2D Doppler, Color Flow transthoracic echocardiogram. Exam performed in department. Left Ventricle Normal left ventricular size. Normal left ventricular thickness. Left ventricular EF by Tello's biplane: 72%. Normal left ventricular systolic function. Normal left ventricular diastolic function. E/e' suggest normal filling pressures. No regional wall motion abnormalities noted. Right Ventricle Normal right ventricular size and function. RVSP unable to be estimated due to insufficient TR signal. Atria The left and right atria are normal. Mitral Valve Normal mitral valve without prolapse. No mitral stenosis. No mitral regurgitation. Tricuspid Valve Normal tricuspid valve without prolapse. No tricuspid stenosis. No tricuspid regurgitation. Aortic Valve Trileaflet aortic valve, aortic valve cusp thickening. No hemodynamically significant aortic stenosis. No aortic regurgitation. Pulmonic Valve Normal pulmonic valve. No pulmonic regurgitation. No pulmonic stenosis. Great Vessels Normal sized aortic root. Normal ascending aorta. Pericardium/Pleural No pericardial effusion. MMode/2D Measurements & Calculations LVIDd: 5.1 cm IVSd: 0.98 cm Ao root diam: 3.4 cm LVIDs: 4.4 cm LVPWd: 1.1 cm FS: 14.4 % LAV(MOD-bp): 36.8 ml LVAd ap4: 25.5 cm2 SV(MOD-sp4): 47.4 ml LAV(MOD-bp) Indexed: 18.2 ml/m2 LVLd ap4: 8.1 cm SI(MOD-sp4): 23.3 ml/m2 LAV(MOD-sp2): 30.6 ml EDV(MOD-sp4): 65.9 ml LAV(MOD-sp4): 38.4 ml EDV(sp4-el): 68.2 ml LVAs ap4: 11.8 cm2 LVLs ap4: 6.2 cm ESV(MOD-sp4): 18.5 ml ESV(sp4-el): 18.9 ml EF(MOD-sp4): 71.9 % EF(sp4-el): 72.3 % SV(sp4-el): 49.3 ml LA A4 area: 16.1 cm2 LA dimension(2D): 4.1 cm RA A4 area: 11.3 cm2 Time Measurements MV dec time: 0.21 sec Doppler Measurements & Calculations MV E max fred: 82.1 cm/sec Lat Peak E' Fred: 8.8 cm/sec Med Peak E' Fred: 7.9 cm/sec MV A max fred: 87.2 cm/sec E/E' lat: 9.3 E/E' med: 10.4 MV E/A: 0.94 MV V2 max: 81.9 cm/sec Ao V2 max: 144.2 cm/sec MV max P.7 mmHg MV dec slope: 382.9 cm/sec2 Ao max P.3 mmHg MV V2 mean: 53.9 cm/sec Ao V2 mean: 101.9 cm/sec MV mean P.3 mmHg Ao mean P.7 mmHg MV V2 VTI: 28.0 cm Ao V2 VTI: 35.1 cm AV (velocity ratio): 0.77 LV V1 max: 119.4 cm/sec PA V2 max: 113.2 cm/sec LV V1 max P.7 mmHg PA V2 mean: 86.0 cm/sec LV V1 mean P.1 mmHg LV V1 mean: 83.3 cm/sec LV V1 VTI: 27.0 cm ECHO/Echo Complete Interpretation Summary Normal left ventricular size Left ventricular ejection fraction by Tello's biplane: 72% Normal left ventricular systolic function Normal left ventricular diastolic function Normal left ventricular wall motion Normal RV systolic function No hemodynamically significant valvular disease Ordering Physician: Krista Michael Referring Physician: Krista Michael Performed By: Cristina Rey RCS
--- NOTE | 2025-09-16 16:39 | STRESSREP ---
Stress Test Report Exercise myocardial perfusion stress test. 80-year-old [female] with a history of [dyspnea]. Stress protocol: Resting EKG demonstrates [normal sinus] rhythm with a rate of [69] bpm, resting blood pressure is [128/82] mmHg.. The patient exercised according to the regular Manuel protocol for a total duration of [3 minutes 59 seconds] attaining a maximum heart rate of [122] bpm which was [86]% of maximum predicted heart rate; the maximum workload was [6.9] metabolic equivalents. At rest there were no ST or T wave changes noted to suggest ischemia and at peak exercise there were no ST segment or T wave changes consistent with myocardial ischemia. No clinical angina was noted the test was terminated due to the target heart rate being achieved/fatigue. The peak blood pressure was [184/80] mmHg. Rate-pressure product was [16976]. Conclusion: Normal exercise stress test with no evidence of ischemia noted. No significant arrhythmias noted.
== END | disposition home or self-care (01) ==
LOC: CVS 09:55
PROVIDERS: PCP Family Medicine; Referring Provider Nurse Practitioner Family; Visit Provider Nurse Practitioner Family
DX: R06.02 Shortness of breath (principal)
CPT/HCPCS: 93017; 93306

== ENCOUNTER 2025-09-20 10:12 | Emergency (ER) | payer MEDICARE, OTHER, SELFPAY ==
[2025-09-20 10:13] VITALS: BP 201/93; BP 205/89; PULSE 83; RESP 14; TEMP 36.6; O2SAT 99; BMI 32.2
--- NOTE | 2025-09-20 11:58 | EDS_ITS ---
HPI History of Present Illness Chief Complaint: Sore Throat Informant: patient Onset/Context/Timing Onset: Month(s) (On and off since January.) Timing: Intermittent Current Severity: Mild Maximum Severity: Mild Narrative Narrative: 80-year-old female used to be a smoker but quit 30+ years ago. Since January has had intermittent laryngitis. Intermittent sore throat. She has seen ENT's PA. She saw all pulmonary Dr. Lenz and his PA or [employer]. She has had workup by her primary care physician labs and a CAT scan of her chest without any specific diagnosis. She does not believe she has had either upper endoscopy nor a scope by ENT. She has had no weight loss. No hemoptysis. She is able to swallow. She has been on an antireflux medication with limited improvement. Prior similar symptoms: Yes Recent Illness/Hospitalization: No PFSH PFSH Home Medications Medication Instructions Recorded Last Taken Type prevagen PO 06/24/25 Unknown History acetylcysteine 600 mg capsule (NAC) 600 mg PO QDAY 01/18 Unknown History albuterol 90 mcg-budesonide 80 2 inh inhalation BID NM N shortness 07/29/25 Unknown Rx mcg/actuation HFA aerosol inhaler of breath or wheezin g #10.7 grams (Airsupra) omeprazole 20 mg capsule,delayed 40 mg (2 x 20 mg) PO QDAY #120 caps 08/08/25 Unknown Rx release spacer #1 ea 08/08/25 Unknown Rx budesonide-formoterol HFA 80 2 puff inhalation BID #10 .2 grams 09/06/25 Unknown Rx mcg-4.5 mcg/actuation aerosol inhaler (Symbicort) Allergy/AdvReac Type Severity Reaction Status Date / Time Penicillins (PCN) Allergy UNKNOWN Verified 09/20/25 10:14 Family History Mother Cancer Father Cancer lung Brother Cancer Sister Cancer bone, lung, liver Surgical History H/O tubal ligation Hx of tonsillectomy History of appendectomy Social History current occupational status: employed Smoking Status: Former smoker how long ago did patient quit smokin, 17 years alcohol intake: never substance use type: does not use caffeine: Yes what type of physical activity do you participate in: none ROS ROS ED ROS Narrative Sore throat. Laryngitis. No weight loss. Constitutional Constitutional ED: Denies chills or fever(s) Eyes Eyes: Denies blurry vision ENT ENT ED: Denies ear pain Cardiovascular Cardiovascular: Denies chest pain Respiratory/Chest Respiratory/Chest: Denies cough or dyspnea Gastrointestinal Gastrointestinal: Denies abdominal pain Genitourinary Genitourinary ED: Denies dysuria or hematuria Musculoskeletal Musculoskeletal: Denies arthralgias Integumentary Denies abscess or Abrasions Neurologic Neurologic: Denies headache(s) Psychiatric Psychiatric: Denies anxiety or depression Endocrine Endocrinology: Denies cold intolerance Hematologic/Lymphatic Hematologic/Lymphatic: Reports none Allergic/Immunologic Allergic/Immunologic ED: Denies mouth swelling, tongue swelling or urticaria EXAM Physical Exam Narrative Exam Narrative: 80-year-old female vital signs are stable afebrile initial blood pressure elevated 201/93. Patient is in no acute distress. Accompanied by family member. H EENT exam pupils round react light. Moist mucous membranes. Posterior pharynx is unremarkable. There is no redness. There is no exudate. No trouble swallowing. No stridor or drooling. She has hearing aids and she took them out her TMs are unremarkable. There is small amount of wax bilaterally. Neck nontender. No lymphadenopathy. Trachea midline. No tenderness. No mass. Lungs are clear equal and symmetrical bilaterally. Heart regular rhythm rate about 80 no murmur. Chest wall ribs nontender. Abdomen soft nontender. Moving all 4 extremities. Normal strength. Normal range of motion. Neurologically she is awake alert. Answering questions following commands. Very benign exam. She does have laryngitis of her voice. Const Vital Signs: 09/20/25 10:13 09/20/25 10:13 Temperature 98 F Temperature Source Temporal Pulse Rate 83 Respiratory Rate 14 Blood Pressure 205/89 H 201/93 H Blood Pressure Mean 127 129 Pulse Ox 99 Oxygen Delivery Method Room Air MDM MDM MDM Narrative Medical decision making narrative: 80-year-old female recurrent laryngitis and sore throat for 6 to 8 months. She has been on steroids which seems a improvement and then it comes back when the steroids are resolved. She has been on antireflux medications without significant improvement. She has not had either an ENT scope or an EGD. She has had a CAT scan of her chest and blood work that were unremarkable. I do not think she needs a CT soft tissue of her neck because she is not having pain or any palpable lymphadenopathy she has had no weight loss. I do not feel a mass. She has got a follow-up with ENT to discuss with them possible scope. I did review her most recent labs and imaging. History & Record Review Discussion w/independent historian: Family Additional record(s) reviewed:: Prior outpatient record, Prior ED visit and Prior labs Discharge Plan Triage Chief Complaint: Sore Throat ED Provider: Bj Sol Dx/Rx/DC Orders Clinical Impression: Laryngitis, chronic Instructions: ED Laryngitis Prescriptions: No Action prevagen PO acetylcysteine [NAC] 600 mg capsule 600 mg PO QDAY Airsupra 90-80 mcg/actuation HFA aerosol inhaler 2 inh inhalation BID PRN (Reason: shortness of breath or wheezing) Qty: 10.7 11RF (DME) spacer See Rx Instructions .ROUTE .MEDSUPPLY Qty: 1 0RF Rx Instructions: As directed omeprazole 20 mg capsule,delayed release(DR/EC) 40 mg PO QDAY Qty: 120 1RF budesonide-formoterol [Symbicort] 80-4.5 mcg/actuation HFA aerosol inhaler 2 puff inhalation BID Qty: 10.2 6RF Primary Care Provider: Jcarlos Zayas Referrals: Jcarlos Zayas MD [Primary Care Provider, [facility]] Pepe Edmonds MD [Med Staff - Active Staff, Ear Nose Throat (ENT)] - As soon as possible Activity Restrictions/Additional Instructions: Call and follow-up with the ENT's office get an appointment to see one of the [address] Pepe Edmonds or Dr. Nadeem Zamoraon. Discussed with them the possibility of doing an ENT scope to look at your vocal cords. I reviewed your prior CAT scan and your prior lab work those were unremarkable. Print Language: [place] Disposition Disposition: Home, Self Care
[2025-09-20 12:13] VITALS: BP 192/77; PULSE 60; RESP 17; TEMP 36.8; O2SAT 98
== END 2025-09-20 12:14 | disposition home or self-care (01) ==
PROVIDERS: Emergency Provider Emergency Medicine; PCP Family Medicine; Visit Provider Emergency Medicine
DX: J37.0 Chronic laryngitis (principal); Z87.891 Personal history of nicotine dependence
CPT/HCPCS: 99282

== ENCOUNTER → 2025-09-28 | Outpatient (CLI) | payer MEDICARE, OTHER, SELFPAY ==
[2025-09-28 18:19] LABS: Hepatitis C Antibody Nonreactive (Nonreactive)
[2025-09-29 00:43] LABS: Xtra Tube Kwok EXTRA TUBE
== END | disposition home or self-care (01) ==
LOC: POLAB3 16:43
PROVIDERS: PCP Family Medicine Geriatric Medicine; Visit Provider Family Medicine Geriatric Medicine
DX: Z13.89 Encounter for screening for other disorder (principal)
CPT/HCPCS: 36415; 86803